=== PATIENT | female | born 1950 | race American Indian/Alaskan Native ===

== ENCOUNTER 2021-11-04 05:00 | Inpatient (IN) | payer MEDICARE ==
--- NOTE | 2021-11-04 05:24 | Emergency Department Report ---
<LAURA LLANESErnie - Last Filed: 11/04/21 05:21> ED Shortness of Breath HPI - General Chief Complaint: Dyspnea/Respdistress Stated Complaint: AMS, CARLEY Time Seen by Provider: 11/04/21 05:20 Source: patient, EMS Mode of arrival: Stretcher Limitations: No Limitations - History of Present Illness Initial Comments: Patient is 71 years old female with history of congestive heart failure and COPD. Patient brought to the emergency room via EMS from home for evaluation of difficulty in breathing that is been going on for 2 days getting worse this morning. EMS reported that patient initial oxygen saturation was 88% on room air improved to 96% on 4 L. Patient also reported chest pain, tightness with no radiation. She reported cough but no fever or chills. MD Complaint: shortness of breath, cough -: days(s) Known History Of: COPD, congestive heart failure ED Review of Systems Comment: All other systems reviewed and negative Constitutional: denies: chills, fever Respiratory: orthopnea, shortness of breath, SOB with exertion, SOB at rest. denies: cough, wheezing Cardiovascular: denies: chest pain, palpitations Musculoskeletal: denies: back pain Neurological: denies: headache, weakness, numbness, paresthesias, confusion ED Past Medical Hx - Social History Smoking Status: Never Smoker Substance Use Type: None ED Physical Exam - General Limitations: No Limitations General appearance: alert, in no apparent distress - Head Head exam: Present: atraumatic, normocephalic, normal inspection - Eye Eye exam: Present: normal appearance - ENT ENT exam: Present: normal exam, normal orophraynx, mucous membranes moist - Neck Neck exam: Present: normal inspection, full ROM. Absent: tenderness, meningismus - Respiratory Respiratory exam: Present: respiratory distress, rales, decreased breath sounds. Absent: wheezes - Cardiovascular Cardiovascular Exam: Present: tachycardia - GI/Abdominal GI/Abdominal exam: Present: soft, normal bowel sounds. Absent: distended, tenderness, guarding, rebound, rigid, mass, bruit, pulsatile mass, hernia - Back Exam Back exam: Absent: CVA tenderness (R), CVA tenderness (L) - Neurological Exam Neurological exam: Present: alert, oriented X3, CN II-XII intact - Psychiatric Psychiatric exam: Present: normal mood - Skin Skin exam: Present: warm, normal color ED Disposition Clinical Impression: SOB (shortness of breath), CHF exacerbation Disposition: ADMITTED INPATIENT Condition: Stable <RAJAN CAMPBELL - Last Filed: 11/04/21 10:41> ED Review of Systems ROS: Stated complaint: AMS, CARLEY Other details as noted in HPI ED Course Vital Signs 11/04/21 11/04/21 11/04/21 05:50 06:01 06:15 Pulse Rate 96 H 124 H 119 H Respiratory 23 40 H 24 Rate Blood Pressure 98/40 112/56 O2 Sat by Pulse 100 100 Oximetry 11/04/21 11/04/21 11/04/21 06:31 06:45 07:01 Pulse Rate 120 H 124 H 112 H Respiratory 37 H 16 38 H Rate Blood Pressure 98/40 105/56 108/56 O2 Sat by Pulse 99 92 95 Oximetry 11/04/21 11/04/21 11/04/21 07:15 07:31 08:01 Pulse Rate 118 H 117 H 116 H Respiratory 33 H 34 H 33 H Rate Blood Pressure 121/66 123/66 122/56 O2 Sat by Pulse 94 93 94 Oximetry 11/04/21 11/04/21 08:15 08:30 Pulse Rate 118 H Respiratory 37 H 18 Rate Blood Pressure 105/65 O2 Sat by Pulse 95 95 Oximetry ED Medical Decision Making - Lab Data Result diagrams: 11/04/21 05:38 11/04/21 05:38 Critical care attestation.: If time is entered above; I have spent that time in minutes in the direct care of this critically ill patient, excluding procedure time. ED Disposition Is pt being admited?: Yes Does the pt Need Aspirin: No
[2021-11-04 05:52] LABS: Hematocrit 37.3 % (30.3-42.9); Hemoglobin 12.3 gm/dl (10.1-14.3); Mean Corpuscular HGB Conc 33 % (30-34); Mean Corpuscular Volume 83 fl (79-97); Platelet Count 234 K/mm3 (140-440); Red Cell Distribution Width 19.1 % (13.2-15.2)
--- NOTE | 2021-11-04 06:02 | XRay Report ---
CHEST 1 VIEW INDICATION / CLINICAL INFORMATION: Dyspnea. COMPARISON: None available. FINDINGS: SUPPORT DEVICES: None. HEART / MEDIASTINUM: Mild cardiomegaly. LUNGS / PLEURA: Bilateral prominence of central vasculature. Interstitial opacities are more prevalen t within the mid and lower chest bilaterally. BONES: No significant osseous abnormality. ADDITIONAL FINDINGS: No significant additional findings. IMPRESSION: 1. Mild decompensation and CHF with vascular congestion and mild pulmonary edema are suggested. Signer Name: Zac Dietrich II, MD Signed: 11/04/2021 5:57 AM Workstation Name: [id number]
[2021-11-04 06:04] LABS: INR 0.97 (0.87-1.13); Partial Thromboplastin Time 26.9 Sec. (24.2-36.6)
[2021-11-04 06:20] LABS: Calcium 9.1 mg/dL (8.4-10.2)
[2021-11-04 06:21] LABS: Alanine Aminotransferase 40 units/L (7-56); Albumin 3.8 g/dL (3.9-5)
[2021-11-04 06:24] LABS: Bilirubin,Direct < 0.2 mg/dL (0-0.2)
[2021-11-04] MEDS ORDERED: FUROSEMIDE 40 MG/4 ML INJ IV ONE (06:29)
[2021-11-04 06:57] LABS: Basophils % (Manual) 0 % (0.0-1.8); Eosinophils % (Manual) 0 % (0.0-4.3); Total Cells Counted 100
[2021-11-04 06:58] LABS: Anisocytosis 1+; Platelet Estimate Consistent w Auto
--- NOTE | 2021-11-04 10:23 | Electrocardiograph Report ---
[facility] Test Date: 2021-11-04 Test Time: 05:24:58 Pat Name: VIKAS HOLCOMB Department: Room: Gender: F Manager Voice: JAMARCUS : 1950 Requested By: LAURA LLANES Order Number: [id number] Reading MD: Jamey Giraldo Measurements Intervals [place] Rate: 129 P: 35 NJ: 132 QRS: 6 QRSD: 76 T: 40 QT: 302 QTc: 445 Interpretive Statements Sinus tachycardia Ventricular premature complex No previous ECG available for comparison Electronically Signed On 11-04-2021 10:23:21 EDT by Jamey Giraldo
[2021-11-04] MEDS ORDERED: ONDANSETRON 4 MG/2 ML INJ IV PRN (11:30)
[2021-11-04] MEDS ORDERED: ACETAMINOPHEN 325 MG TAB PO PRN (11:30)
--- NOTE | 2021-11-04 11:30 | History and Physical Report ---
History of Present Illness History of present illness: 71-year-old female with past medical history of congestive heart failure, COPD on home 3 L presenting to our facility with complaint of chest pain and shortness of breath. She states that symptomology started approximately 2 days ago and has been getting progressively worse. EMS reported initial oxygen saturation of 88% on room air which improved to 96% with 4 L. Patient reported chest pain associated with shortness of breath which she describes as a substernal pressure sensation, does not radiate to the jaw, does not radiate to the shoulder. She reports her appetite has been worse as well last few days. She denies any headache, fever, chills, palpitations, abdominal pain, changes in bowel or urinary habits. Remainder of ROS negative except for stated above Of note the patient has no primary care doctor or hairspring i inspector. She recently moved from [facility] and her daughter is her primary palliative care nurse practitioner. She was recently hospitalized at [facility] for similar symptoms. At the time she had elevated troponins which were stable at 0.11 and echo which showed normal ejection fraction. She was worked up for copd vs ILD and treated with antibiotics, steroids, inhalers at the time. Her renal function was stable at the time at 0.8. After discussing with daughter Aminta, patient was apparently found very confused. She has been having poor oral intake over the last past few days and diarrhea as well. Patient daughter state her mother has issues with memory but was very confused when she found her. Her work of breathing was increased and patient complaining of chest pain. She states that her mother had been hospitalized at [facility] back in August and in September. Both times it was for chest pain and shortness of breath symptoms. She also states that her mother's oxygen requirements have been increasing and have been as high as 5 L/min. After discussing the possibility of her mother having pulmonary fibrosis, the daughter stated that she was aware of this diagnosis and stated that they had up on appointment with pulmonology however were unable to make it to the office as getting appointment was difficult. 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 GENERAL: The patient appears normally developed, Vital signs as documented. On 4 L nasal cannula HEAD: No signs of head trauma. EYES: Pupils are equal. Extraocular motions intact. EARS: Hearing grossly intact. MOUTH: Oropharynx is normal. NECK: No adenopathy, no JVD. CHEST: Bilateral rhonchi. CARDIAC: Regular rate and rhythm. S1 and S2, without murmurs, gallops, or rub s. VASCULAR: No Edema. Peripheral pulses normal and equal in all extremities. ABDOMEN: Soft, non tender and non distended. No rebound or guarding, and no masses palpated. Bowel Sounds normal. MUSCULOSKELETAL: Good range of motion of all major joints. Extremities without clubbing, cyanosis or edema. NEUROLOGIC EXAM: Alert and oriented x 3. no focal sensory or strength deficits. PSYCHIATRIC: Mood normal. SKIN: detail exam as documented in skin assessment - Constitutional Vitals: Temp Pulse Resp BP Pulse Ox 118 H 18 105/65 95 11/04/21 08:15 11/04/21 08:30 11/04/21 08:15 11/04/21 08:30 HEART Score - HEART Score Troponin: Troponin T 0.115 ng/mL (0.00-0.029) H* 11/04/21 06:44 Results - Labs CBC & Chem 7: 11/04/21 05:38 11/04/21 05:38 Labs: Laboratory Last Values WBC 8.6 K/mm3 (4.5-11.0) 11/04/21 05:38 RBC 4.50 M/mm3 (3.65-5.03) 11/04/21 05:38 Hgb 12.3 gm/dl (10.1-14.3) 11/04/21 05:38 Hct 37.3 % (30.3-42.9) 11/04/21 05:38 MCV 83 fl (79-97) 11/04/21 05:38 MCH 27 pg (28-32) L 11/04/21 05:38 MCHC 33 % (30-34) 11/04/21 05:38 RDW 19.1 % (13.2-15.2) H 11/04/21 05:38 Plt Count 234 K/mm3 (140-440) 11/04/21 05:38 Add Manual Diff Complete 11/04/21 05:38 Total Counted 100 11/04/21 05:38 Seg Neuts % (Manual) 89.0 % (40.0-70.0) H 11/04/21 05:38 Band Neutrophils % 0 % 11/04/21 05:38 Lymphocytes % (Manual) 8.0 % (13.4-35.0) L 11/04/21 05:38 Reactive Lymphs % (Man) 0 % 11/04/21 05:38 Monocytes % (Manual) 3.0 % (0.0-7.3) 11/04/21 05:38 Eosinophils % (Manual) 0 % (0.0-4.3) 11/04/21 05:38 Basophils % (Manual) 0 % (0.0-1.8) 11/04/21 05:38 Metamyelocytes % 0 % 11/04/21 05:38 Myelocytes % 0 % 11/04/21 05:38 Promyelocytes % 0 % 11/04/21 05:38 Blast Cells % 0 % 11/04/21 05:38 Nucleated RBC % Not Reportable 11/04/21 05:38 Seg Neutrophils # Man 7.7 K/mm3 (1.8-7.7) 11/04/21 05:38 Band Neutrophils # 0.0 K/mm3 11/04/21 05:38 Lymphocytes # (Manual) 0.7 K/mm3 (1.2-5.4) L 11/04/21 05:38 Abs React Lymphs (Man) 0.0 K/mm3 11/04/21 05:38 Monocytes # (Manual) 0.3 K/mm3 (0.0-0.8) 11/04/21 05:38 Eosinophils # (Manual) 0.0 K/mm3 (0.0-0.4) 11/04/21 05:38 Basophils # (Manual) 0.0 K/mm3 (0.0-0.1) 11/04/21 05:38 Metamyelocytes # 0.0 K/mm3 11/04/21 05:38 Myelocytes # 0.0 K/mm3 11/04/21 05:38 Promyelocytes # 0.0 K/mm3 11/04/21 05:38 Blast Cells # 0.0 K/mm3 11/04/21 05:38 WBC Morphology Not Reportable 11/04/21 05:38 Hypersegmented Neuts Not Reportable 11/04/21 05:38 Hyposegmented Neuts Not Reportable 11/04/21 05:38 Hypogranular Neuts Not Reportable 11/04/21 05:38 Smudge Cells Not Reportable 11/04/21 05:38 Toxic Granulation Not Reportable 11/04/21 05:38 Toxic Vacuolation Not Reportable 11/04/21 05:38 Dohle Bodies Not Reportable 11/04/21 05:38 Pelger-Huet Anomaly Not Reportable 11/04/21 05:38 Kelli Rods Not Reportable 11/04/21 05:38 Platelet Estimate Consistent w auto 11/04/21 05:38 Clumped Platelets Not Reportable 11/04/21 05:38 Plt Clumps, EDTA Not Reportable 11/04/21 05:38 Large Platelets Not Reportable 11/04/21 05:38 Giant Platelets Not Reportable 11/04/21 05:38 Platelet Satelliting Not Reportable 11/04/21 05:38 Plt Morphology Comment Not Reportable 11/04/21 05:38 RBC Morphology Not Reportable 11/04/21 05:38 Dimorphic RBCs Not Reportable 11/04/21 05:38 Polychromasia Not Reportable 11/04/21 05:38 Hypochromasia Not Reportable 11/04/21 05:38 Poikilocytosis Not Reportable 11/04/21 05:38 Anisocytosis 1+ 11/04/21 05:38 Microcytosis Not Reportable 11/04/21 05:38 Macrocytosis Not Reportable 11/04/21 05:38 Spherocytes Not Reportable 11/04/21 05:38 Pappenheimer Bodies Not Reportable 11/04/21 05:38 Sickle Cells Not Reportable 11/04/21 05:38 Target Cells Not Reportable 11/04/21 05:38 Tear Drop Cells Not Reportable 11/04/21 05:38 Ovalocytes Not Reportable 11/04/21 05:38 Helmet Cells Not Reportable 11/04/21 05:38 [place] Bodies Not Reportable 11/04/21 05:38 [place] Rings Not Reportable 11/04/21 05:38 [place] Cells Not Reportable 11/04/21 05:38 Bite Cells Not Reportable 11/04/21 05:38 Crenated Cell Not Reportable 11/04/21 05:38 Elliptocytes Not Reportable 11/04/21 05:38 Acanthocytes (Spur) Not Reportable 11/04/21 05:38 Rouleaux Not Reportable 11/04/21 05:38 Hemoglobin C Crystals Not Reportable 11/04/21 05:38 Schistocytes Not Reportable 11/04/21 05:38 Malaria parasites Not Reportable 11/04/21 05:38 Pedro Bodies Not Reportable 11/04/21 05:38 Hem Pathologist Commnt No 11/04/21 05:38 PT 13.9 Sec. (12.2-14.9) 11/04/21 05:38 INR 0.97 (0.87-1.13) 11/04/21 05:38 APTT 26.9 Sec. (24.2-36.6) 11/04/21 05:38 Sodium 135 mmol/L (137-145) L 11/04/21 05:38 Potassium 4.6 mmol/L (3.6-5.0) 11/04/21 05:38 Chloride 95.7 mmol/L (98-107) L 11/04/21 05:38 Carbon Dioxide 21 mmol/L (22-30) L 11/04/21 05:38 Anion Gap 23 mmol/L 11/04/21 05:38 BUN 18 mg/dL (7-17) H 11/04/21 05:38 Creatinine 1.7 mg/dL (0.6-1.2) H 11/04/21 05:38 Estimated GFR 29 ml/min 11/04/21 05:38 BUN/Creatinine Ratio 11 % 11/04/21 05:38 Glucose 182 mg/dL (65-100) H 11/04/21 05:38 Lactic Acid 1.70 mmol/L (0.7-2.0) 11/04/21 06:44 Calcium 9.1 mg/dL (8.4-10.2) 11/04/21 05:38 Total Bilirubin 0.60 mg/dL (0.1-1.2) 11/04/21 05:38 Direct Bilirubin < 0.2 mg/dL (0-0.2) 11/04/21 05:38 Indirect Bilirubin 0.4 mg/dL 11/04/21 05:38 AST 104 units/L (5-40) H 11/04/21 05:38 ALT 40 units/L (7-56) 11/04/21 05:38 Alkaline Phosphatase 70 units/L (35-129) 11/04/21 05:38 Troponin T 0.115 ng/mL (0.00-0.029) H* 11/04/21 06:44 NT-Pro-B Natriuret Pep 339.8 pg/mL (0-900) 11/04/21 06:44 Total Protein 7.3 g/dL (6.3-8.2) 11/04/21 05:38 Albumin 3.8 g/dL (3.9-5) L 11/04/21 05:38 Albumin/Globulin Ratio 1.1 % 11/04/21 05:38 Triglycerides 102 mg/dL (2-149) 11/04/21 05:38 Cholesterol 220 mg/dL (50-199) H 11/04/21 05:38 LDL Cholesterol Direct 144 mg/dL (50-130) H 11/04/21 05:38 HDL Cholesterol 55 mg/dL (40-59) 11/04/21 05:38 Cholesterol/HDL Ratio 4.00 % 11/04/21 05:38 Assessment and Plan Assessment and plan: #Acute hypoxic respiratory -88% on room air per EMS, 94% on 4L /min . -utilizes as much as 5l/min at home O2 per daughter - duoneb/budesonide ordered - doubt this is cardiac/heart failure related. BNP non elevated. Troponin appears chronically elevated. Symptoms likely driven by ILD. -CXR seems to suggest pulmonary edema from CHF -CT chest: appears to be fibrosis, will await radiology read. - normal EF per old read in September of this year at [facility], echo ordered cancelled - cardiology consulted on admission due to concern for heart failure and troponin elevation, d/w cardiology FREQUENCY CHECKER, will follow recs - pulmonary medicine consulted, d/w Dr Ramirez. #Pulmonary fibrosis - supplemental oxygen 4l/min - CT chest seems to indicate fibrosis, will await radiology recs/pulmonary impressoin - D/w Dr. Ramirez Pulmonology. - duonebs/budesonide -unclear if there is a role for steroids here. #Troponin elevation - EKG on admission shows sinus tachycardia, ordered repeat study - 0.11, repeat troponin ordered - 0.11 at [facility] in September per cardiology -cardiology consulted #Acute kidney injury due to vasomotor nephropathy - Cr: 1.7, reported 0.8 at [facility] - has had a history of kidney problems in her distant past per daughter, was on multilpe pain medications due to hx of rickets - will continue to trend on bmp. - gentle iv hydration ordered, 500 cc @75 x 1 bag. #history of COPD - on 3L/min qhs per patient - duonebs/budesonide as above #Hyperlipidemia -resume home atorvastatin #history of roberta #Nicotine abuse - significant 40 pack year history in her past. #Vascular dementia - memory issues reported by daughter #Morbid Obesity - BMI 37.6 - Counseled patient on the importance of weight loss, incorporating exercise, and dietary changes (lean meats, fresh fruits and vegetables, and water intake). Patient expresses understanding. - Time: +15 min #Advance care planning Disease education conducted, care plan discussed, diagnoses discussed, prognosis discussed, patient is full code, patient acknowledges understanding and agree with care plan, +30 minutes.
--- NOTE | 2021-11-04 12:57 | Consultation ---
History of Present Illness Consult date: 11/04/21 Requesting physician: NAVEEN MÁRQUEZ Consult reason: congestive heart failure, elevated troponin History of present illness: Patient is 71-year-old female with a past medical history of COPD versus ILD, diabetes, and hyperlipidemia who presented to the ED today after being on the bathroom floor this morning by her daughter. Patient states that all she remembers is going to the bathroom and then being woken up by her daughter. Patient brought to the ED by EMS. Per documentation EMS found patient with O2 sat of 88% on room air. At time of interview patient reports complaint of shortness of breath that has been going on for about a week but has worsened in the last 2 days. She reports orthopnea, dyspnea on exertion, dizziness, a dry cough, and a sharp chest pain associated with coughing. At the time of interview patient currently denies any chest pain. In the ED patient was found to have lactic acid of 2.2, negative BNP, troponins stable at 0.11, creatinine of 1.7, and CXR showed vascular congestion and mild pulmonary edema. Of note patient has been admitted to [place] several times in the last few months with complaints of shortness of breath. Patient was recently discharged at the end of September for similar complaints. At time of interview patient denies chest pain, diaphoresis, palpitations, or bilateral lower extremity edema. Patient is previously unknown to our practice. Cardiology is consulted for CHF and elevated troponin Past History Past Medical History: COPD, diabetes, hyperlipidemia Past Surgical History: Other (Knee and hip surgery) Social history: smoking (Former smoker) Family history: no significant family history Medications and Allergies Allergies Allergy/AdvReac Type Severity Reaction Status Date / Time Penicillins Allergy Unknown Verified 11/04/21 05:23 Active Meds: Active Medications Acetaminophen (Acetaminophen 325 Mg Tab) 650 mg PO Q4H PRN PRN Reason: Pain MILD(1-3)/Fever >100.5/WONG Furosemide (Furosemide 40 Mg/4 Ml Inj) 40 mg IV 0600,1800 LEISA Heparin Sodium (Porcine) (Heparin 5,000 Unit/1 Ml Vial) 5,000 unit SUB-Q Q12HR LEISA Ondansetron HCl (Ondansetron 4 Mg/2 Ml Inj) 4 mg IV Q8H PRN PRN Reason: Nausea And Vomiting Oxycodone/Acetaminophen (Oxycodone /Acetaminophen 5-325mg Tab) 1 tab PO Q6H PRN PRN Reason: Pain, Moderate (4-6) Sodium Chloride (Sodium Chloride 0.9% 10 Ml Flush Syringe) 10 ml IV BID LEISA Sodium Chloride (Sodium Chloride 0.9% 10 Ml Flush Syringe) 10 ml IV PRN PRN PRN Reason: LINE FLUSH Review of Systems Constitutional: no weight loss, no weight gain Ears, nose, mouth and throat: no sinus pressure, no sinus pain Cardiovascular: orthopnea, syncope, shortness of breath, dyspnea on exertion, no chest pain, no palpitations Respiratory: cough, shortness of breath, dyspnea on exertion, pain on ins piration Gastrointestinal: nausea, no abdominal pain, no vomiting Musculoskeletal: no neck stiffness, no neck pain Integumentary: no rash, no pruritis, no redness Neurological: no head injury, no transient paralysis Psychiatric: no anxiety, no memory loss Endocrine: no cold intolerance, no heat intolerance Hematologic/Lymphatic: no easy bruising, no easy bleeding Physical Examination Vital Signs Pulse Resp 96 H 23 11/04/21 05:50 11/04/21 05:50 General appearance: no acute distress HEENT: Positive: PERRL Neck: Positive: trachea midline Cardiac: Positive: Regular Rhythm, Tachycardia Lungs: Positive: Decreased Breath Sounds Neuro: Positive: Grossly Intact Abdomen: Positive: Soft Skin: Negative: Rash, Suspicious Lesions, Ulceration Extremities: Present: upper extr. pulses, edema Results 11/04/21 05:38 11/04/21 05:38 Cardiac Enzymes 11/04/21 Range/Units 05:38 AST 104 H (5-40) units/L Coagulation 11/04/21 Range/Units 05:38 PT 13.9 (12.2-14.9) Sec. INR 0.97 (0.87-1.13) APTT 26.9 (24.2-36.6) Sec. Lipids 11/04/21 Range/Units 05:38 Triglycerides 102 (2-149) mg/dL Cholesterol 220 H (50-199) mg/dL HDL Cholesterol 55 (40-59) mg/dL Cholesterol/HDL Ratio 4.00 % CBC 11/04/21 Range/Units 05:38 WBC 8.6 (4.5-11.0) K/mm3 RBC 4.50 (3.65-5.03) M/mm3 Hgb 12.3 (10.1-14.3) gm/dl Hct 37.3 (30.3-42.9) % Plt Count 234 (140-440) K/mm3 Comprehensive Metabolic Panel 11/04/21 11/04/21 Range/Units 05:38 05:38 Sodium 135 L (137-145) mmol/L Potassium 4.6 (3.6-5.0) mmol/L Chloride 95.7 L (98-107) mmol/L Carbon Dioxide 21 L (22-30) mmol/L BUN 18 H (7-17) mg/dL Creatinine 1.7 H (0.6-1.2) mg/dL Glucose 182 H (65-100) mg/dL Calcium 9.1 (8.4-10.2) mg/dL Direct Bilirubin < 0.2 (0-0.2) mg/dL Indirect Bilirubin 0.4 mg/dL AST 104 H (5-40) units/L ALT 40 (7-56) units/L Alkaline Phosphatase 70 (35-129) units/L Total Protein 7.3 (6.3-8.2) g/dL Albumin 3.8 L (3.9-5) g/dL - Imaging and Cardiology Echo: report reviewed EKG interpretations - Telemetry EKG Rhythm: Sinus Tachycardia - EKG Sinus rhythms and dysrhythmias: sinus tachycardia Assessment and Plan Patient is 71-year-old female with a past medical history of COPD versus ILD, diabetes, and hyperlipidemia who presented to the ED today after being on the bathroom floor by her daughter the day of admission. Patient also reports shortness of breath Acute on chronic respiratory failure NSTEMI suspect type II COPD versus ILD JACOBY Diabetes Hyperlipidemia Echo 09/04/2021-LV cavity size and wall thickness are normal. LV systolic function is normal with an estimated LVEF 50-55%. No regional wall motion abnormalities. RV cavity size is normal. RV systolic function appears mild- moderately reduced (best seen in SAX views). Normal biatrial size. Moderate tricuspid regurgitation. There is at least moderate pulmonary hypertension (PASP in 50s). No pericardial effusion. Normal aortic root size. Plan: EKG shows sinus tach 129 with no acute ischemic changes. Troponin noted to be elevated and stable at 0.11 x2 sets. Patient currently denies any chest pain. Continue to trend cardiac enzyme Upon review of records at [place] patient had similar troponins of 0.1 Suspect NSTEMI type II in setting of JACOBY and acute on chronic hypoxic respir atory failure BNP negative however CXR shows pulmonary edema and vascular congestion. Agree with IV Lasix for diuresis with close monitoring of renal function strict I&O's and repeat BMP in the a.m. Due to sinus tach primary team may wish to rule out PE Due to acute on chronic respiratory failure may wish to consider pulmonology consult Initiate atorvastatin 10 mg p.o. nightly Patient not has not had any ischemic eval however due to acute respiratory failure and patient currently denying chest pain will hold ischemic eval at this time No YAZ or ARB due to renal function Will hold beta-blockers due to soft blood pressures Continue to monitor closely Patient seen in conjunction with Dr. Giraldo who agrees with this plan of care
--- NOTE | 2021-11-04 14:20 | Cat Scan Report ---
CT CHEST WITHOUT CONTRAST INDICATION / CLINICAL INFORMATION: pulmonary fibrosis. TECHNIQUE: Axial CT images were obtained through the chest without contrast. All CT scans at this [facility] ation are performed using CT dose reduction for ALARA by means of automated exposure control. COMPARISON: None available. FINDINGS: HEART: No significant abnormality. CORONARY ARTERY CALCIFICATION: Present -- Mild. THORACIC AORTA: Mild atherosclerotic calcification without acute abnormality. MEDIASTINUM / DYLAN: There are a few borderline paratracheal lymph nodes measuring up to 1 cm in short axis. No pathologic adenopathy is appreciated. PLEURA: No pleural effusion. No pneumothorax. LUNGS: There is moderate septal thickening in the periphery of both lungs which is most pronounced at the lung bases. There may be minimal early fibrotic changes in the subpleural regions of both lower lobes. This pattern is suggestive of early idiopathic pulmonary fibrosis. No evidence for acute infil trate or mass. ADDITIONAL FINDINGS: None. UPPER ABDOMEN: Nothing acute. Cholecystectomy. SKELETAL SYSTEM: Moderate discogenic DJD at T1 to. No bony structures are otherwise unremarkable. IMPRESSION: Mild to moderate interstitial lung disease as outlined above. No acute cardiopulmonary process. Signer Name: Aldo Lyman Jr, MD Signed: 11/04/2021 2:16 PM Workstation Name: [id number]
[2021-11-04] MEDS ORDERED: SODIUM CHLORIDE 0.9% 500 ML 500 ML IV SCH (15:00)
[2021-11-04] MEDS: ASPIRIN EC 81 MG TAB PO SCH (15:00)
[2021-11-04] MEDS ORDERED: FUROSEMIDE 40 MG/4 ML INJ IV SCH (18:00)
[2021-11-04] MEDS: IPRATROPIUM/ALBUTEROL SULFATE 3 ML AMPUL.NEB IH SCH ×2 (20:42→20:44)
[2021-11-04] MEDS: BUDESONIDE 0.5 MG/2 ML NEBU IH SCH ×2 (20:43→20:45)
[2021-11-04] MEDS: HEPARIN 5,000 UNIT/1 ML VIAL SUB-Q SCH (23:55)
[2021-11-05 05:22] LABS: Basophils % (Auto) 0.2 % (0.0-1.8); Eosinophils # (Auto) 0.1 K/mm3 (0.0-0.4); Eosinophils % (Auto) 1.2 % (0.0-4.3); Hematocrit 38.1 % (30.3-42.9); Hemoglobin 12.1 gm/dl (10.1-14.3); Lymphocytes % (Auto) 17.9 % (13.4-35.0); Mean Corpuscular HGB Conc 32 % (30-34); Mean Corpuscular Volume 85 fl (79-97); Monocytes # (Auto) 0.5 K/mm3 (0.0-0.8); Monocytes % (Auto) 9.3 % (0.0-7.3); Platelet Count 277 K/mm3 (140-440); Red Cell Distribution Width 19.3 % (13.2-15.2)
[2021-11-05 05:41] LABS: BUN/Creatinine Ratio 19; Blood Urea Nitrogen 19 mg/dL (7-17); Calcium 9.3 mg/dL (8.4-10.2); Hemolysis Index 11
[2021-11-05] MEDS: IPRATROPIUM/ALBUTEROL SULFATE 3 ML AMPUL.NEB IH SCH ×5 (08:19→21:24)
[2021-11-05] MEDS: BUDESONIDE 0.5 MG/2 ML NEBU IH SCH ×2 (08:19→19:50)
[2021-11-05] MEDS: HEPARIN 5,000 UNIT/1 ML VIAL SUB-Q SCH ×2 (10:21→22:37)
[2021-11-05] MEDS: ASPIRIN EC 81 MG TAB PO SCH (10:21)
[2021-11-05] MEDS ORDERED: MORPHINE 4 MG/1 ML INJ IM ONE (11:00)
--- NOTE | 2021-11-05 11:08 | Progress Note ---
Assessment and Plan Patient is 71-year-old female with a past medical history of COPD versus ILD, diabetes, and hyperlipidemia who presented to the ED today after being on the bathroom floor by her daughter the day of admission. Patient also reports shortness of breath Acute on chronic respiratory failure NSTEMI suspect type II COPD versus ILD- pulmonology follwing JACOBY Diabetes Hyperlipidemia Echo 09/04/2021-LV cavity size and wall thickness are normal. LV systolic function is normal with an estimated LVEF 50-55%. No regional wall motion abnormalities. RV cavity size is normal. RV systolic function appears mild- moderately reduced (best seen in SAX views). Normal biatrial size. Moderate tricuspid regurgitation. There is at least moderate pulmonary hypertension (PASP in 50s). No pericardial effusion. Normal aortic root size. Plan: EKG shows sinus tach 129 with no acute ischemic changes. Troponin noted to be elevated and stable at 0.11 x2 sets and downtrending this AM. Patient continues to deny any chest pain. Upon review of records at [place] patient had similar troponins of 0.1 Suspect NSTEMI type II in setting of JACOBY and acute on chronic hypoxic respiratory failure No PE on CT however, per CT report patient may have early Idopathic pulmonary fibrosis. Will defer to pulmonary recommendations Per documentation and discussion with staff hospice consultation is pending due to diagnosis of pulmonary fibrosis Patient not has not had any ischemic eval however due to acute on chronic respiratory failure,patient comorbidities, hospice consult, and patient currently denying chest pain recommend conservative management Continue atorvastatin 10 mg p.o. nightly No YAZ or ARB due to renal function Will hold beta-blockers due to soft blood pressures Will see as needed over the weekend Patient seen in conjunction with Dr. Giraldo who agrees with this plan of care - Patient Problems (1) JACOBY (acute kidney injury) Current Visit: Yes Status: Acute (2) NSTEMI (non-ST elevated myocardial infarction) Current Visit: Yes Status: Acute (3) Diabetes Current Visit: Yes Status: Acute (4) SOB (shortness of breath) Current Visit: Yes Status: Acute Subjective Date of service: 11/05/21 Principal diagnosis: Acute on chronic respiratory failure Interval history: Resting in bed in no acute distress. Reports continue SOB and cough Sinus tach lows 100s on monitor Objective Vital Signs Temp Pulse Pulse Resp Resp BP Pulse Ox 06/17/22 09:28 95 11/05/21 08:19 96 H 16 11/05/21 06:48 97.9 F 107 H 18 114/59 83 L 11/05/21 04:03 98.3 F 104 H 19 94/52 89 11/04/21 23:27 20 97 11/04/21 23:07 105 H 11/04/21 23:00 98.4 F 104 H 18 91/38 96 11/04/21 22:58 98.4 F 99 H 18 105/39 95 11/04/21 22:31 95 H 26 H 114/51 96 11/04/21 22:21 99 H 19 114/51 94 11/04/21 22:11 98 H 22 114/51 93 11/04/21 22:01 99 H 10 L 114/51 91 11/04/21 21:50 100 H 11 L 114/51 92 11/04/21 21:41 106 H 20 108/58 89 11/04/21 21:31 100 H 15 108/58 90 11/04/21 21:21 97 H 28 H 108/58 96 11/04/21 21:11 98 H 15 108/58 96 11/04/21 21:01 97 H 20 108/58 98 11/04/21 20:51 99 H 19 108/58 91 11/04/21 20:50 95 H 16 96 11/04/21 20:41 95 H 20 111/74 95 11/04/21 20:31 100 H 16 111/74 93 11/04/21 20:21 97 H 27 H 111/74 96 11/04/21 20:11 101 H 14 111/74 97 11/04/21 20:01 102 H 18 111/74 94 11/04/21 19:51 103 H 18 111/74 93 11/04/21 19:41 100 H 22 91/47 98 11/04/21 19:31 102 H 18 91/47 96 11/04/21 19:21 102 H 17 91/47 96 11/04/21 19:11 103 H 17 91/47 95 11/04/21 19:01 101 H 14 91/47 95 11/04/21 18:51 14 178/49 93 11/04/21 18:41 15 178/49 97 11/04/21 18:31 11 L 178/49 98 11/04/21 18:27 15 178/49 98 11/04/21 18:15 20 109/32 99 11/04/21 18:01 19 109/32 93 11/04/21 17:45 10 L 117/87 96 11/04/21 17:31 15 117/87 80 L 11/04/21 17:15 118/54 95 11/04/21 17:01 118/54 96 11/04/21 16:45 126/63 94 11/04/21 16:31 126/63 92 11/04/21 16:15 126/63 97 11/04/21 16:01 26 H 126/63 97 11/04/21 15:45 28 H 128/67 97 11/04/21 15:31 25 H 128/67 98 11/04/21 15:15 28 H 114/57 96 11/04/21 15:01 29 H 114/57 96 11/04/21 14:45 119/61 95 11/04/21 14:31 119/61 95 11/04/21 14:15 109/55 98 11/04/21 14:01 109/55 97 11/04/21 13:45 106/64 96 11/04/21 13:33 106/64 93 11/04/21 13:15 105 H 28 H 106/64 97 11/04/21 13:01 106 H 26 H 106/64 98 11/04/21 12:45 106 H 34 H 106/64 96 11/04/21 12:31 105 H 16 106/64 94 11/04/21 12:15 109 H 14 106/64 94 11/04/21 12:01 109 H 12 106/64 94 11/04/21 11:45 108 H 34 H 106/64 95 11/04/21 11:31 108 H 33 H 106/64 96 11/04/21 11:15 108 H 30 H 106/64 97 11/04/21 11:01 106 H 29 H 106/64 95 - Physical Examination General: No Apparent Distress HEENT: Positive: PERRL Neck: Positive: trachea midline Cardiac: Positive: Regular Rhythm, Tachycardia Lungs: Positive: Decreased Breath Sounds Neuro: Positive: Grossly Intact Abdomen: Positive: Soft Skin: Negative: Rash, Suspicious Lesions, Ulceration Extremities: Present: upper extr. pulses, edema - Labs and Meds CBC 11/05/21 Range/Units 04:54 WBC 5.7 (4.5-11.0) K/mm3 RBC 4.50 (3.65-5.03) M/mm3 Hgb 12.1 (10.1-14.3) gm/dl Hct 38.1 (30.3-42.9) % Plt Count 277 (140-440) K/mm3 Lymph # (Auto) 1.0 L (1.2-5.4) K/mm3 Jones # (Auto) 0.5 (0.0-0.8) K/mm3 Eos # (Auto) 0.1 (0.0-0.4) K/mm3 Baso # (Auto) 0.0 (0.0-0.1) K/mm3 Comprehensive Metabolic Panel 11/05/21 Range/Units 04:54 Sodium 137 (137-145) mmol/L Potassium 3.7 (3.6-5.0) mmol/L Chloride 94.5 L (98-107) mmol/L Carbon Dioxide 26 (22-30) mmol/L BUN 19 H (7-17) mg/dL Creatinine 1.0 (0.6-1.2) mg/dL Glucose 135 H (65-100) mg/dL Calcium 9.3 (8.4-10.2) mg/dL - Imaging and Cardiology EKG: report reviewed, image reviewed Echo: report reviewed - Telemetry EKG Rhythm: Sinus Tachycardia - EKG Sinus rhythms and dysrhythmias: sinus tachycardia
[2021-11-05] MEDS ORDERED: MORPHINE 2 MG/1 ML INJ IV SCH (11:10)
--- NOTE | 2021-11-05 11:29 | Electrocardiograph Report ---
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
--- NOTE | 2021-11-05 13:35 | Progress Note ---
Assessment and Plan Assessment and plan: #Acute on chronic hypoxic respiratory failure -88% on room air per EMS, 94% on 4L /min . -utilizes as much as 5l/min at home O2 per daughter - duoneb/budesonide ordered - doubt this is cardiac/heart failure related. BNP non elevated. Troponin appears chronically elevated. Symptoms likely driven by ILD. -CXR seems to suggest pulmonary edema from CHF -CT chest: appears to be fibrosis, will await radiology read. 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 #Pulmonary fibrosis - supplemental oxygen 4l/min - CT chest seems to indicate fibrosis, will await radiology recs/pulmonary impressoin - D/w Dr. Ramirez Pulmonology. - duonebs/budesonide -unclear if there is a role for steroids here. #Troponin elevation - EKG on admission shows sinus tachycardia, ordered repeat study - 0.11, repeat troponin ordered - 0.11 at [facility] in September per cardiology -cardiology consulted #Acute kidney injury due to vasomotor nephropathy- resolved - Cr: 1.7, reported 0.8 at [facility] - has had a history of kidney problems in her distant past per daughter, was on multilpe pain medications due to hx of rickets - will continue to trend on bmp. - gentle iv hydration ordered, 500 cc @75 x 1 bag. #History of COPD - on 3L/min qhs per patient - duonebs/budesonide as above #Hyperlipidemia -resume home atorvastatin #history of roberta #History of nicotine abuse - significant 40 pack year history in her past. #Vascular dementia - memory issues reported by daughter #Morbid Obesity - BMI 37.6 - Counseled patient on the importance of weight loss, incorporating exercise, and dietary changes (lean meats, fresh fruits and vegetables, and water intake). Patient expresses understanding. - Time: +15 min #Advance care planning Disease education conducted, care plan discussed, diagnoses discussed, prognosis discussed, patient is full code, patient acknowledges understanding and agree with care plan, +30 minutes. Disposition Plan: Continue medical management Total Time Spent with Patient (Minutes): 45 min History Interval history: No acute events overnight. Hospitalist Physical - Constitutional Vitals: Temp Pulse Resp BP Pulse Ox 97.9 F 96 H 20 114/59 97 11/05/21 06:48 11/05/21 08:19 11/05/21 11:00 11/05/21 06:48 11/05/21 11:00 General appearance: Present: no acute distress, well-nourished, obese - EENT Eyes: Present: PERRL, EOM intact ENT: hearing intact, clear oral mucosa, dentition normal - Neck Neck: Present: supple, normal ROM - Respiratory Respiratory effort: normal Respiratory: bilateral: diminished (On Venturi mask) - Cardiovascular Rhythm: regular Heart Sounds: Present: S1 & S2 - Extremities Extremities: no ischemia, pulses intact, pulses symmetrical, No edema, normal temperature, normal color Peripheral Pulses: within normal limits - Abdominal General gastrointestinal: soft, non-tender, non-distended, normal bowel sounds - Integumentary Integumentary: Present: clear, warm, dry - Psychiatric Psychiatric: appropriate mood/affect, intact judgment & insight, memory intact, cooperative - Neurologic Neurologic: CNII-XII intact, moves all extremities - Allied Health Allied health notes reviewed: nursing HEART Score - HEART Score Troponin: Troponin T 0.060 ng/mL (0.00-0.029) H D 11/05/21 04:54 Results - Labs CBC & Chem 7: 11/05/21 04:54 11/05/21 04:54 Labs: Laboratory Last Values WBC 5.7 K/mm3 (4.5-11.0) 11/05/21 04:54 RBC 4.50 M/mm3 (3.65-5.03) 11/05/21 04:54 Hgb 12.1 gm/dl (10.1-14.3) 11/05/21 04:54 Hct 38.1 % (30.3-42.9) 11/05/21 04:54 MCV 85 fl (79-97) 11/05/21 04:54 MCH 27 pg (28-32) L 11/05/21 04:54 MCHC 32 % (30-34) 11/05/21 04:54 RDW 19.3 % (13.2-15.2) H 11/05/21 04:54 Plt Count 277 K/mm3 (140-440) 11/05/21 04:54 Lymph % (Auto) 17.9 % (13.4-35.0) 11/05/21 04:54 [place] % (Auto) 9.3 % (0.0-7.3) H 11/05/21 04:54 Eos % (Auto) 1.2 % (0.0-4.3) 11/05/21 04:54 Baso % (Auto) 0.2 % (0.0-1.8) 11/05/21 04:54 Lymph # (Auto) 1.0 K/mm3 (1.2-5.4) L 11/05/21 04:54 [place] # (Auto) 0.5 K/mm3 (0.0-0.8) 11/05/21 04:54 Eos # (Auto) 0.1 K/mm3 (0.0-0.4) 11/05/21 04:54 Baso # (Auto) 0.0 K/mm3 (0.0-0.1) 11/05/21 04:54 Add Manual Diff Complete 11/04/21 05:38 Total Counted 100 11/04/21 05:38 Seg Neutrophils % 71.4 % (40.0-70.0) H 11/05/21 04:54 Seg Neuts % (Manual) 89.0 % (40.0-70.0) H 11/04/21 05:38 Band Neutrophils % 0 % 11/04/21 05:38 Lymphocytes % (Manual) 8.0 % (13.4-35.0) L 11/04/21 05:38 Reactive Lymphs % (Man) 0 % 11/04/21 05:38 Monocytes % (Manual) 3.0 % (0.0-7.3) 11/04/21 05:38 Eosinophils % (Manual) 0 % (0.0-4.3) 11/04/21 05:38 Basophils % (Manual) 0 % (0.0-1.8) 11/04/21 05:38 Metamyelocytes % 0 % 11/04/21 05:38 Myelocytes % 0 % 11/04/21 05:38 Promyelocytes % 0 % 11/04/21 05:38 Blast Cells % 0 % 11/04/21 05:38 Nucleated RBC % Not Reportable 11/04/21 05:38 Seg Neutrophils # 4.1 K/mm3 (1.8-7.7) 11/05/21 04:54 Seg Neutrophils # Man 7.7 K/mm3 (1.8-7.7) 11/04/21 05:38 Band Neutrophils # 0.0 K/mm3 11/04/21 05:38 Lymphocytes # (Manual) 0.7 K/mm3 (1.2-5.4) L 11/04/21 05:38 Abs React Lymphs (Man) 0.0 K/mm3 11/04/21 05:38 Monocytes # (Manual) 0.3 K/mm3 (0.0-0.8) 11/04/21 05:38 Eosinophils # (Manual) 0.0 K/mm3 (0.0-0.4) 11/04/21 05:38 Basophils # (Manual) 0.0 K/mm3 (0.0-0.1) 11/04/21 05:38 Metamyelocytes # 0.0 K/mm3 11/04/21 05:38 Myelocytes # 0.0 K/mm3 11/04/21 05:38 Promyelocytes # 0.0 K/mm3 11/04/21 05:38 Blast Cells # 0.0 K/mm3 11/04/21 05:38 WBC Morphology Not Reportable 11/04/21 05:38 Hypersegmented Neuts Not Reportable 11/04/21 05:38 Hyposegmented Neuts Not Reportable 11/04/21 05:38 Hypogranular Neuts Not Reportable 11/04/21 05:38 Smudge Cells Not Reportable 11/04/21 05:38 Toxic Granulation Not Reportable 11/04/21 05:38 Toxic Vacuolation Not Reportable 11/04/21 05:38 Dohle Bodies Not Reportable 11/04/21 05:38 Pelger-Huet Anomaly Not Reportable 11/04/21 05:38 Kelli Rods Not Reportable 11/04/21 05:38 Platelet Estimate Consistent w auto 11/04/21 05:38 Clumped Platelets Not Reportable 11/04/21 05:38 Plt Clumps, EDTA Not Reportable 11/04/21 05:38 Large Platelets Not Reportable 11/04/21 05:38 Giant Platelets Not Reportable 11/04/21 05:38 Platelet Satelliting Not Reportable 11/04/21 05:38 Plt Morphology Comment Not Reportable 11/04/21 05:38 RBC Morphology Not Reportable 11/04/21 05:38 Dimorphic RBCs Not Reportable 11/04/21 05:38 Polychromasia Not Reportable 11/04/21 05:38 Hypochromasia Not Reportable 11/04/21 05:38 Poikilocytosis Not Reportable 11/04/21 05:38 Anisocytosis 1+ 11/04/21 05:38 Microcytosis Not Reportable 11/04/21 05:38 Macrocytosis Not Reportable 11/04/21 05:38 Spherocytes Not Reportable 11/04/21 05:38 Pappenheimer Bodies Not Reportable 11/04/21 05:38 Sickle Cells Not Reportable 11/04/21 05:38 Target Cells Not Reportable 11/04/21 05:38 Tear Drop Cells Not Reportable 11/04/21 05:38 Ovalocytes Not Reportable 11/04/21 05:38 Helmet Cells Not Reportable 11/04/21 05:38 [place] Bodies Not Reportable 11/04/21 05:38 [place] Rings Not Reportable 11/04/21 05:38 Ariela Cells Not Reportable 11/04/21 05:38 Bite Cells Not Reportable 11/04/21 05:38 Crenated Cell Not Reportable 11/04/21 05:38 Elliptocytes Not Reportable 11/04/21 05:38 Acanthocytes (Spur) Not Reportable 11/04/21 05:38 Rouleaux Not Reportable 11/04/21 05:38 Hemoglobin C Crystals Not Reportable 11/04/21 05:38 Schistocytes Not Reportable 11/04/21 05:38 Malaria parasites Not Reportable 11/04/21 05:38 Pedro Bodies Not Reportable 11/04/21 05:38 Hem Pathologist Commnt No 11/04/21 05:38 PT 13.9 Sec. (12.2-14.9) 11/04/21 05:38 INR 0.97 (0.87-1.13) 11/04/21 05:38 APTT 26.9 Sec. (24.2-36.6) 11/04/21 05:38 D-Dimer 1099.01 ng/mlDDU (0-234) H 11/05/21 04:54 Sodium 137 mmol/L (137-145) 11/05/21 04:54 Potassium 3.7 mmol/L (3.6-5.0) 11/05/21 04:54 Chloride 94.5 mmol/L (98-107) L 11/05/21 04:54 Carbon Dioxide 26 mmol/L (22-30) 11/05/21 04:54 Anion Gap 20 mmol/L 11/05/21 04:54 BUN 19 mg/dL (7-17) H 11/05/21 04:54 Creatinine 1.0 mg/dL (0.6-1.2) 11/05/21 04:54 Estimated GFR > 60 ml/min 11/05/21 04:54 BUN/Creatinine Ratio 19 % 11/05/21 04:54 Glucose 135 mg/dL (65-100) H 11/05/21 04:54 POC Glucose 98 mg/dL (70-105) 11/05/21 11:45 Lactic Acid 1.70 mmol/L (0.7-2.0) 11/04/21 06:44 Calcium 9.3 mg/dL (8.4-10.2) 11/05/21 04:54 Total Bilirubin 0.60 mg/dL (0.1-1.2) 11/04/21 05:38 Direct Bilirubin < 0.2 mg/dL (0-0.2) 11/04/21 05:38 Indirect Bilirubin 0.4 mg/dL 11/04/21 05:38 AST 104 units/L (5-40) H 11/04/21 05:38 ALT 40 units/L (7-56) 11/04/21 05:38 Alkaline Phosphatase 70 units/L (35-129) 11/04/21 05:38 Troponin T 0.060 ng/mL (0.00-0.029) H D 11/05/21 04:54 NT-Pro-B Natriuret Pep 339.8 pg/mL (0-900) 11/04/21 06:44 Total Protein 7.3 g/dL (6.3-8.2) 11/04/21 05:38 Albumin 3.8 g/dL (3.9-5) L 11/04/21 05:38 Albumin/Globulin Ratio 1.1 % 11/04/21 05:38 Triglycerides 102 mg/dL (2-149) 11/04/21 05:38 Cholesterol 220 mg/dL (50-199) H 11/04/21 05:38 LDL Cholesterol Direct 144 mg/dL (50-130) H 11/04/21 05:38 HDL Cholesterol 55 mg/dL (40-59) 11/04/21 05:38 Cholesterol/HDL Ratio 4.00 % 11/04/21 05:38 Active Medications - Current Medications Current Medications: Generic Name Dose Route Start Last Admin Trade Name Freq PRN Reason Stop Dose Admin Acetaminophen 650 mg 11/04/21 11:30 Acetaminophen 325 Mg Tab PO Q4H PRN Pain MILD(1-3)/Fever >100.5/WONG Albuterol/Ipratropium 1 ampul 11/05/21 10:00 11/05/21 10:44 Ipratropium/Albuterol Sulfate 3 Ml Ampul.Neb IH Not Given BID LEISA Aspirin 81 mg 11/04/21 14:00 11/05/21 10:21 Aspirin Ec 81 Mg Tab PO 81 mg QDAY LEISA Administration Atorvastatin Calcium 10 mg 11/04/21 22:00 11/04/21 23:54 Atorvastatin 10 Mg Tab PO 10 mg QHS LEISA Administration Budesonide 0.5 mg 11/04/21 13:45 11/05/21 08:19 Budesonide 0.5 Mg/2 Ml Nebu IH 0.5 mg Q12HRT LEISA Administration Heparin Sodium (Porcine) 5,000 unit 11/04/21 22:00 11/05/21 10:21 Heparin 5,000 Unit/1 Ml Vial SUB-Q 5,000 unit Q12HR LEISA Administration Morphine Sulfate 2 mg 11/05/21 11:10 11/05/21 11:24 Morphine 2 Mg/1 Ml Inj IV 11/05/21 23:00 2 mg ONCE LEISA Administration Ondansetron HCl 4 mg 11/04/21 11:30 Ondansetron 4 Mg/2 Ml Inj IV Q8H PRN Nausea And Vomiting Oxycodone/Acetaminophen 1 tab 11/04/21 11:30 Oxycodone /Acetaminophen 5-325mg Tab PO Q6H PRN Pain, Moderate (4-6) Sodium Chloride 10 ml 11/04/21 22:00 11/05/21 10:22 Sodium Chloride 0.9% 10 Ml Flush Syringe IV 10 ml BID LEISA Administration Sodium Chloride 10 ml 11/04/21 11:30 Sodium Chloride 0.9% 10 Ml Flush Syringe IV PRN PRN LINE FLUSH
--- NOTE | 2021-11-05 14:22 | Consultation ---
Past History Past Medical History: COPD, diabetes, hyperlipidemia Past Surgical History: Other (Knee and hip surgery) Social history: smoking (Former smoker) Family history: no significant family history Medications and Allergies Allergies Allergy/AdvReac Type Severity Reaction Status Date / Time Penicillins Allergy Unknown Verified 11/04/21 05:23 Active Meds: Active Medications Acetaminophen (Acetaminophen 325 Mg Tab) 650 mg PO Q4H PRN PRN Reason: Pain MILD(1-3)/Fever >100.5/WONG Albuterol/Ipratropium (Ipratropium/Albuterol Sulfate 3 Ml Ampul.Neb) 1 ampul IH BID [facility] Last Admin: 11/05/21 10:44 Dose: Not Given Aspirin (Aspirin Ec 81 Mg Tab) 81 mg PO QDAY [facility] Last Admin: 11/05/21 10:21 Dose: 81 mg Atorvastatin Calcium (Atorvastatin 10 Mg Tab) 10 mg PO QHS [facility] Last Admin: 11/04/21 23:54 Dose: 10 mg Budesonide (Budesonide 0.5 Mg/2 Ml Nebu) 0.5 mg IH Q12HRT [facility] Last Admin: 11/05/21 08:19 Dose: 0.5 mg Heparin Sodium (Porcine) (Heparin 5,000 Unit/1 Ml Vial) 5,000 unit SUB-Q Q12HR [facility] Last Admin: 11/05/21 10:21 Dose: 5,000 unit Morphine Sulfate (Morphine 2 Mg/1 Ml Inj) 2 mg IV ONCE [facility] Stop: 11/05/21 23:00 Last Admin: 11/05/21 11:24 Dose: 2 mg Ondansetron HCl (Ondansetron 4 Mg/2 Ml Inj) 4 mg IV Q8H PRN PRN Reason: Nausea And Vomiting Oxycodone/Acetaminophen (Oxycodone /Acetaminophen 5-325mg Tab) 1 tab PO Q6H PRN PRN Reason: Pain, Moderate (4-6) Sodium Chloride (Sodium Chloride 0.9% 10 Ml Flush Syringe) 10 ml IV BID [facility] Last Admin: 11/05/21 10:22 Dose: 10 ml Sodium Chloride (Sodium Chloride 0.9% 10 Ml Flush Syringe) 10 ml IV PRN PRN PRN Reason: LINE FLUSH Physical Examination Vital signs: Vital Signs Pulse Resp 96 H 23 11/04/21 05:50 11/04/21 05:50 Results - Laboratory Findings CBC and BMP: 11/05/21 04:54 11/05/21 04:54 PT/INR, D-dimer PT 13.9 Sec. (12.2-14.9) 11/04/21 05:38 INR 0.97 (0.87-1.13) 11/04/21 05:38 D-Dimer 1099.01 ng/mlDDU (0-234) H 11/05/21 04:54 Abnormal lab findings: Abnormal Labs 11/04/21 11/04/21 11/04/21 05:38 05:38 05:38 MCH 27 L RDW 19.1 H Drew % (Auto) Lymph # (Auto) Seg Neutrophils % Seg Neuts % (Manual) 89.0 H Lymphocytes % (Manual) 8.0 L Lymphocytes # (Manual) 0.7 L D-Dimer Sodium 135 L Chloride 95.7 L Carbon Dioxide 21 L BUN 18 H Creatinine 1.7 H Glucose 182 H Lactic Acid 2.20 H* AST Troponin T 0.111 H* Albumin Cholesterol 220 H LDL Cholesterol Direct 144 H 11/04/21 11/04/21 11/05/21 05:38 06:44 04:54 MCH 27 L RDW 19.3 H Drew % (Auto) 9.3 H Lymph # (Auto) 1.0 L Seg Neutrophils % 71.4 H Seg Neuts % (Manual) Lymphocytes % (Manual) Lymphocytes # (Manual) D-Dimer Sodium Chloride Carbon Dioxide BUN Creatinine Glucose Lactic Acid AST 104 H Troponin T 0.115 H* Albumin 3.8 L Cholesterol LDL Cholesterol Direct 11/05/21 11/05/21 04:54 04:54 MCH RDW [place] % (Auto) Lymph # (Auto) Seg Neutrophils % Seg Neuts % (Manual) Lymphocytes % (Manual) Lymphocytes # (Manual) D-Dimer 1099.01 H Sodium Chloride 94.5 L Carbon Dioxide BUN 19 H Creatinine Glucose 135 H Lactic Acid AST Troponin T 0.060 H D Albumin Cholesterol LDL Cholesterol Direct Assessment and Plan 71 y/o obese female with abnormal CT scan and hypoxemia. REviewed images from here and from [place]. Does not appear to be typical for IPF. 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 patient had elevated RF but no anti ccp was sent. She has seen [place] [facility] but she cannot tell me anything. At this point will suggest the following: Will start steroids given the picture is not typical for IPF. Will place on Solumedrol 60q6 to see if some benefit is felt Echo done at [place] shows moderate Pulm HTN. Will restart oral lasix therapy Ideally, patient needs a surgical lung biopsy for definitive diagnosis. TBBx would not provide adequate enough tissue. No thoracic surgery at this hospital Patient was on 6 liters at one point at [place] and appears to may have been discharged on this. Will find out more when I speak with the daughter. Guarded Prognosis.
--- NOTE | 2021-11-05 14:46 | Event Note ---
Date: 11/05/21 Placed call to Aminta Hyde, daughter, but she did not answer the phone. Will attempt to speak them tomorrow.
[2021-11-05] MEDS: oxyCODONE /ACETAMINOPHEN 5-325MG TAB PO PRN (16:42)
[2021-11-05] MEDS: methylPREDNISolone Sod Succinate 125 MG/2 ML INJ IV SCH (17:23)
[2021-11-06] MEDS: methylPREDNISolone Sod Succinate 125 MG/2 ML INJ IV SCH ×4 (01:24→16:58)
[2021-11-06] MEDS: BUDESONIDE 0.5 MG/2 ML NEBU IH SCH ×2 (08:57→20:59)
[2021-11-06] MEDS: IPRATROPIUM/ALBUTEROL SULFATE 3 ML AMPUL.NEB IH SCH ×2 (09:00→20:59)
[2021-11-06] MEDS: HEPARIN 5,000 UNIT/1 ML VIAL SUB-Q SCH ×2 (09:12→22:12)
[2021-11-06] MEDS: ASPIRIN EC 81 MG TAB PO SCH (09:12)
[2021-11-06] MEDS: FUROSEMIDE 20 MG TAB PO SCH (09:12)
[2021-11-06] MEDS ORDERED: DEXTROSE 50% IN WATER (25GM) 50 ML SYRINGE IV PRN (09:25)
--- NOTE | 2021-11-06 09:30 | Progress Note ---
Assessment and Plan Assessment and plan: #Acute on chronic hypoxic respiratory failure -88% on room air per EMS, 94% on 4L /min . -utilizes as much as 5l/min at home O2 per daughter - duoneb/budesonide ordered - doubt this is cardiac/heart failure related. BNP non elevated. Troponin appears chronically elevated. Symptoms likely driven by ILD. -CXR seems to suggest pulmonary edema from CHF -CT chest: appears to be fibrosis, will await radiology read. 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 #Pulmonary fibrosis (possible and CAP) - supplemental oxygen 4l/min -CT chest indicating fibrosis with honeycombing pattern. -Pulmonology consulted; appreciate recs. -Continue DuoNebs. Continue IV Solu-Medrol 60 mg every 6 hours and IV Lasix 20 mg daily. #Troponin elevation - EKG on admission shows sinus tachycardia, ordered repeat study - 0.11, repeat troponin ordered -cardiology consulted; appreciate recs. No intervention necessary at this time. #Acute kidney injury due to vasomotor nephropathy- resolved - Cr: 1.7, reported 0.8 at [place] - has had a history of kidney problems in her distant past per daughter, was on multilpe pain medications due to hx of rickets - will continue to trend on bmp. - gentle iv hydration ordered, 500 cc @75 x 1 bag. #History of COPD - on 3L/min qhs per patient -Continue duonebs/budesonide as above #Hyperlipidemia -resume home atorvastatin #history of [place] #History of nicotine abuse - significant 40 pack year history in her past. #Vascular dementia - memory issues reported by daughter #Morbid Obesity - BMI 37.6 - Counseled patient on the importance of weight loss, incorporating exercise, and dietary changes (lean meats, fresh fruits and vegetables, and water intake). Patient expresses understanding. - Time: +15 min #Advance care planning Disease education conducted, care plan discussed, diagnoses discussed, prognosis discussed, patient is full code, patient acknowledges understanding and agree with care plan, +30 minutes. Disposition Plan: Continue medical management Total Time Spent with Patient (Minutes): 45 minutes History Interval history: No acute events overnight. Hospitalist Physical - Constitutional Vitals: Temp Pulse Resp BP Pulse Ox 98.3 F 87 16 112/61 96 11/06/21 08:18 11/06/21 08:57 11/06/21 08:57 11/06/21 08:35 11/06/21 09:00 General appearance: Present: no acute distress, well-nourished, obese - EENT Eyes: Present: PERRL, EOM intact ENT: hearing intact, clear oral mucosa, dentition normal - Neck Neck: Present: supple, normal ROM - Respiratory Respiratory effort: labored Respiratory: bilateral: diminished (On 4 L nasal cannula) - Cardiovascular Rhythm: regular Heart Sounds: Present: S1 & S2 - Extremities Extremities: no ischemia, pulses intact, pulses symmetrical, No edema, normal temperature, normal color Peripheral Pulses: within normal limits - Abdominal General gastrointestinal: soft, non-tender, non-distended, normal bowel sounds - Integumentary Integumentary: Present: clear, warm, dry - Psychiatric Psychiatric: appropriate mood/affect, cooperative - Neurologic Neurologic: CNII-XII intact, moves all extremities - Allied Health Allied health notes reviewed: nursing HEART Score - HEART Score Troponin: Troponin T 0.060 ng/mL (0.00-0.029) H D 11/05/21 04:54 Results - Labs CBC & Chem 7: 11/05/21 04:54 11/05/21 04:54 Labs: Laboratory Last Values WBC 5.7 K/mm3 (4.5-11.0) 11/05/21 04:54 RBC 4.50 M/mm3 (3.65-5.03) 11/05/21 04:54 Hgb 12.1 gm/dl (10.1-14.3) 11/05/21 04:54 Hct 38.1 % (30.3-42.9) 11/05/21 04:54 MCV 85 fl (79-97) 11/05/21 04:54 MCH 27 pg (28-32) L 11/05/21 04:54 MCHC 32 % (30-34) 11/05/21 04:54 RDW 19.3 % (13.2-15.2) H 11/05/21 04:54 Plt Count 277 K/mm3 (140-440) 11/05/21 04:54 Lymph % (Auto) 17.9 % (13.4-35.0) 11/05/21 04:54 [place] % (Auto) 9.3 % (0.0-7.3) H 11/05/21 04:54 Eos % (Auto) 1.2 % (0.0-4.3) 11/05/21 04:54 Baso % (Auto) 0.2 % (0.0-1.8) 11/05/21 04:54 Lymph # (Auto) 1.0 K/mm3 (1.2-5.4) L 11/05/21 04:54 [place] # (Auto) 0.5 K/mm3 (0.0-0.8) 11/05/21 04:54 Eos # (Auto) 0.1 K/mm3 (0.0-0.4) 11/05/21 04:54 Baso # (Auto) 0.0 K/mm3 (0.0-0.1) 11/05/21 04:54 Add Manual Diff Complete 11/04/21 05:38 Total Counted 100 11/04/21 05:38 Seg Neutrophils % 71.4 % (40.0-70.0) H 11/05/21 04:54 Seg Neuts % (Manual) 89.0 % (40.0-70.0) H 11/04/21 05:38 Band Neutrophils % 0 % 11/04/21 05:38 Lymphocytes % (Manual) 8.0 % (13.4-35.0) L 11/04/21 05:38 Reactive Lymphs % (Man) 0 % 11/04/21 05:38 Monocytes % (Manual) 3.0 % (0.0-7.3) 11/04/21 05:38 Eosinophils % (Manual) 0 % (0.0-4.3) 11/04/21 05:38 Basophils % (Manual) 0 % (0.0-1.8) 11/04/21 05:38 Metamyelocytes % 0 % 11/04/21 05:38 Myelocytes % 0 % 11/04/21 05:38 Promyelocytes % 0 % 11/04/21 05:38 Blast Cells % 0 % 11/04/21 05:38 Nucleated RBC % Not Reportable 11/04/21 05:38 Seg Neutrophils # 4.1 K/mm3 (1.8-7.7) 11/05/21 04:54 Seg Neutrophils # Man 7.7 K/mm3 (1.8-7.7) 11/04/21 05:38 Band Neutrophils # 0.0 K/mm3 11/04/21 05:38 Lymphocytes # (Manual) 0.7 K/mm3 (1.2-5.4) L 11/04/21 05:38 Abs React Lymphs (Man) 0.0 K/mm3 11/04/21 05:38 Monocytes # (Manual) 0.3 K/mm3 (0.0-0.8) 11/04/21 05:38 Eosinophils # (Manual) 0.0 K/mm3 (0.0-0.4) 11/04/21 05:38 Basophils # (Manual) 0.0 K/mm3 (0.0-0.1) 11/04/21 05:38 Metamyelocytes # 0.0 K/mm3 11/04/21 05:38 Myelocytes # 0.0 K/mm3 11/04/21 05:38 Promyelocytes # 0.0 K/mm3 11/04/21 05:38 Blast Cells # 0.0 K/mm3 11/04/21 05:38 WBC Morphology Not Reportable 11/04/21 05:38 Hypersegmented Neuts Not Reportable 11/04/21 05:38 Hyposegmented Neuts Not Reportable 11/04/21 05:38 Hypogranular Neuts Not Reportable 11/04/21 05:38 Smudge Cells Not Reportable 11/04/21 05:38 Toxic Granulation Not Reportable 11/04/21 05:38 Toxic Vacuolation Not Reportable 11/04/21 05:38 Dohle Bodies Not Reportable 11/04/21 05:38 Pelger-Huet Anomaly Not Reportable 11/04/21 05:38 Kelli Rods Not Reportable 11/04/21 05:38 Platelet Estimate Consistent w auto 11/04/21 05:38 Clumped Platelets Not Reportable 11/04/21 05:38 Plt Clumps, EDTA Not Reportable 11/04/21 05:38 Large Platelets Not Reportable 11/04/21 05:38 Giant Platelets Not Reportable 11/04/21 05:38 Platelet Satelliting Not Reportable 11/04/21 05:38 Plt Morphology Comment Not Reportable 11/04/21 05:38 RBC Morphology Not Reportable 11/04/21 05:38 Dimorphic RBCs Not Reportable 11/04/21 05:38 Polychromasia Not Reportable 11/04/21 05:38 Hypochromasia Not Reportable 11/04/21 05:38 Poikilocytosis Not Reportable 11/04/21 05:38 Anisocytosis 1+ 11/04/21 05:38 Microcytosis Not Reportable 11/04/21 05:38 Macrocytosis Not Reportable 11/04/21 05:38 Spherocytes Not Reportable 11/04/21 05:38 Pappenheimer Bodies Not Reportable 11/04/21 05:38 Sickle Cells Not Reportable 11/04/21 05:38 Target Cells Not Reportable 11/04/21 05:38 Tear Drop Cells Not Reportable 11/04/21 05:38 Ovalocytes Not Reportable 11/04/21 05:38 Helmet Cells Not Reportable 11/04/21 05:38 [place] Bodies Not Reportable 11/04/21 05:38 [place] Rings Not Reportable 11/04/21 05:38 Ariela Cells Not Reportable 11/04/21 05:38 Bite Cells Not Reportable 11/04/21 05:38 Crenated Cell Not Reportable 11/04/21 05:38 Elliptocytes Not Reportable 11/04/21 05:38 Acanthocytes (Spur) Not Reportable 11/04/21 05:38 Rouleaux Not Reportable 11/04/21 05:38 Hemoglobin C Crystals Not Reportable 11/04/21 05:38 Schistocytes Not Reportable 11/04/21 05:38 Malaria parasites Not Reportable 11/04/21 05:38 Pedro Bodies Not Reportable 11/04/21 05:38 Hem Pathologist Commnt No 11/04/21 05:38 PT 13.9 Sec. (12.2-14.9) 11/04/21 05:38 INR 0.97 (0.87-1.13) 11/04/21 05:38 APTT 26.9 Sec. (24.2-36.6) 11/04/21 05:38 D-Dimer 1099.01 ng/mlDDU (0-234) H 11/05/21 04:54 Sodium 137 mmol/L (137-145) 11/05/21 04:54 Potassium 3.7 mmol/L (3.6-5.0) 11/05/21 04:54 Chloride 94.5 mmol/L (98-107) L 11/05/21 04:54 Carbon Dioxide 26 mmol/L (22-30) 11/05/21 04:54 Anion Gap 20 mmol/L 11/05/21 04:54 BUN 19 mg/dL (7-17) H 11/05/21 04:54 Creatinine 1.0 mg/dL (0.6-1.2) 11/05/21 04:54 Estimated GFR > 60 ml/min 11/05/21 04:54 BUN/Creatinine Ratio 19 % 11/05/21 04:54 Glucose 135 mg/dL (65-100) H 11/05/21 04:54 POC Glucose 241 mg/dL (70-105) H 11/06/21 05:05 Lactic Acid 1.70 mmol/L (0.7-2.0) 11/04/21 06:44 Calcium 9.3 mg/dL (8.4-10.2) 11/05/21 04:54 Total Bilirubin 0.60 mg/dL (0.1-1.2) 11/04/21 05:38 Direct Bilirubin < 0.2 mg/dL (0-0.2) 11/04/21 05:38 Indirect Bilirubin 0.4 mg/dL 11/04/21 05:38 AST 104 units/L (5-40) H 11/04/21 05:38 ALT 40 units/L (7-56) 11/04/21 05:38 Alkaline Phosphatase 70 units/L (35-129) 11/04/21 05:38 Troponin T 0.060 ng/mL (0.00-0.029) H D 11/05/21 04:54 NT-Pro-B Natriuret Pep 339.8 pg/mL (0-900) 11/04/21 06:44 Total Protein 7.3 g/dL (6.3-8.2) 11/04/21 05:38 Albumin 3.8 g/dL (3.9-5) L 11/04/21 05:38 Albumin/Globulin Ratio 1.1 % 11/04/21 05:38 Triglycerides 102 mg/dL (2-149) 11/04/21 05:38 Cholesterol 220 mg/dL (50-199) H 11/04/21 05:38 LDL Cholesterol Direct 144 mg/dL (50-130) H 11/04/21 05:38 HDL Cholesterol 55 mg/dL (40-59) 11/04/21 05:38 Cholesterol/HDL Ratio 4.00 % 11/04/21 05:38 [place]/IV: Voiding Method Urinal Active Medications - Current Medications Current Medications: Generic Name Dose Route Start Last Admin Trade Name Freq PRN Reason Stop Dose Admin Acetaminophen 650 mg 11/04/21 11:30 Acetaminophen 325 Mg Tab PO Q4H PRN Pain MILD(1-3)/Fever >100.5/WONG Albuterol/Ipratropium 1 ampul 11/05/21 10:00 11/06/21 09:00 Ipratropium/Albuterol Sulfate 3 Ml Ampul.Neb IH 1 ampul BID LEISA Administration Aspirin 81 mg 11/04/21 14:00 11/06/21 09:12 Aspirin Ec 81 Mg Tab PO 81 mg QDAY LEISA Administration Atorvastatin Calcium 10 mg 11/04/21 22:00 11/05/21 22:38 Atorvastatin 10 Mg Tab PO 10 mg QHS LEISA Administration Budesonide 0.5 mg 11/04/21 13:45 11/06/21 08:57 Budesonide 0.5 Mg/2 Ml Nebu IH 0.5 mg Q12HRT LEISA Administration Dextrose 50 ml 11/06/21 09:25 Dextrose 50% In Water (25gm) 50 Ml Syringe IV Q30MIN PRN Hypoglycemia Protocol Furosemide 20 mg 11/06/21 10:00 11/06/21 09:12 Furosemide 20 Mg Tab PO 20 mg QDAY LEISA Administration Heparin Sodium (Porcine) 5,000 unit 11/04/21 22:00 11/06/21 09:12 Heparin 5,000 Unit/1 Ml Vial SUB-Q 5,000 unit Q12HR LEISA Administration Insulin Human Isoph/Insulin Regular 8 unit 11/06/21 09:25 Insulin Nph/Regular 70/30 Inj SUB-Q BIDDIAB LEISA Insulin Human Regular 0 units 11/06/21 11:30 Insulin Regular, Human 100 Units/1 Ml SUB-Q AC LEISA Protocol Methylprednisolone Sodium Succinate 60 mg 11/05/21 18:00 11/06/21 06:15 Methylprednisolone Sod Succinate 125 Mg/2 Ml Inj IV 60 mg Q6HR LEISA Administration Ondansetron HCl 4 mg 11/04/21 11:30 Ondansetron 4 Mg/2 Ml Inj IV Q8H PRN Nausea And Vomiting Oxycodone/Acetaminophen 1 tab 11/04/21 11:30 11/05/21 16:42 Oxycodone /Acetaminophen 5-325mg Tab PO 1 tab Q6H PRN Administration Pain, Moderate (4-6) Sodium Chloride 10 ml 11/04/21 22:00 11/06/21 09:12 Sodium Chloride 0.9% 10 Ml Flush Syringe IV 10 ml BID LEISA Administration Sodium Chloride 10 ml 11/04/21 11:30 Sodium Chloride 0.9% 10 Ml Flush Syringe IV PRN PRN LINE FLUSH Nutrition/Malnutrition Assess - Dietary Evaluation Nutrition/Malnutrition Findings: Nutrition Notes Start: 11/05/21 14:38 Freq: Status: Active Protocol: Document 11/05/21 14:38 SHALOM (Rec: 11/05/21 15:02 SHALOM [id number]) Nutrition Notes 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 Current Diet Cardiac Diet (since L 11/04). Labs/Tests 11/05: Cl 94.5, BUN 19, Glu 135. Pertinent Medications 11/05: Nutritionally unremarkable. 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 Weight Status Obese Subjective/Other Information RD consult for new onset diabetes assessment. No reports available on Pt's PO intake of meals at the time , will assess at F/U. Pt is on Nasal Cannula, O2 saturation @ 97%, according to Physical Assessment Histroy notes. 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 Pt does not have diabetes diagnosed on the chart. Percent of energy/protein needs met: Prescribed Cardiac Diet provides for energy/protein needs (2,230 Kcal/85 g) during LOS. Burn Absent Trauma Absent GI Symptoms Diarrhea Food Allergy No Skin Integrity/Comment Assessment WNL. 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 Is patient on ventilator? No Is Patient Ambulatory and/or Out of Bed Yes REE-([place]. or-ambulatory/OOB) [ 2114.125 NUTR.[id number]] Kcal/Kg value to use for calculation 16 Approximate Energy Requirements Using 1742 kcal/Kg Calculation Used for Recommendations Kcal/kg Additional Notes Protein: 1-1.2 g/Kg AdjBW; 85- 102 g/day. Fluids: 1 ml/Kcal, or as per MD. Nutrition Intervention Change Diet Order: Continue Cardiac Diet. Follow-Up By: 11/12/21 Additional Comments Continue monitoring food tolerance, %PO intake of meals , and BM.
[2021-11-06] MEDS: INSULIN NPH/REGULAR 70/30 INJ SUB-Q SCH ×2 (10:22→17:02)
[2021-11-06] MEDS: INSULIN REGULAR, HUMAN 100 UNITS/1 ML SUB-Q SCH ×2 (11:50→16:58)
--- NOTE | 2021-11-06 13:20 | Progress Note ---
Assessment and Plan 71 y/o obese female with abnormal CT scan and hypoxemia. 11/06/21: Continue current care with IV steroids. REviewed images from here and from [facility] [facility]. Does not appear to be typical for IPF. 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 patient had elevated RF but no anti ccp was sent. She has seen [facility] [facility] pulm but she cannot tell me anything. At this point will suggest the following: Will start steroids given the picture is not typical for IPF. Will place on Solumedrol 60q6 to see if some benefit is felt Echo done at [facility] [facility] shows moderate Pulm HTN. Will restart oral lasix therapy Ideally, patient needs a surgical lung biopsy for definitive diagnosis. TBBx would not provide adequate enough tissue. No thoracic surgery at this hospital Patient was on 6 liters at one point at [facility] and appears to may have been discharged on this. Will find out more when I speak with the daughter. Guarded Prognosis. Subjective Date of service: 11/06/21 Principal diagnosis: Acute on chronic respiratory failure Interval history: Still no family at bedside. Oxygen requirement improved with steroids. So did work of breathing Objective Vital Signs - 12hr 11/06/21 11/06/21 11/06/21 04:30 06:35 08:18 Temperature 98.7 F 98.3 F Pulse Rate 85 93 H 85 Pulse Rate [ Anterior Bilateral Throughout] Respiratory 17 Rate Respiratory Rate [Anterior Bilateral Throughout] Blood Pressure 189/140 Blood Pressure 105/64 [Left] O2 Sat by Pulse 95 96 Oximetry 11/06/21 11/06/21 11/06/21 08:35 08:57 09:00 Temperature Pulse Rate 90 Pulse Rate [ 87 Anterior Bilateral Throughout] Respiratory Rate Respiratory 16 Rate [Anterior Bilateral Throughout] Blood Pressure 112/61 Blood Pressure [Left] O2 Sat by Pulse 97 96 Oximetry 11/06/21 10:45 Temperature Pulse Rate Pulse Rate [ Anterior Bilateral Throughout] Respiratory 22 Rate Respiratory Rate [Anterior Bilateral Throughout] Blood Pressure Blood Pressure [Left] O2 Sat by Pulse 96 Oximetry CBC and BMP: 11/05/21 04:54 11/05/21 04:54 ABG, PT/INR, D-dimer: PT/INR, D-dimer PT 13.9 Sec. (12.2-14.9) 11/04/21 05:38 INR 0.97 (0.87-1.13) 11/04/21 05:38 D-Dimer 1099.01 ng/mlDDU (0-234) H 11/05/21 04:54 Abnormal lab findings: Abnormal Labs 11/04/21 11/04/21 11/04/21 05:38 05:38 05:38 MCH 27 L RDW 19.1 H [place] % (Auto) Lymph # (Auto) Seg Neutrophils % Seg Neuts % (Manual) 89.0 H Lymphocytes % (Manual) 8.0 L Lymphocytes # (Manual) 0.7 L D-Dimer Sodium 135 L Chloride 95.7 L Carbon Dioxide 21 L BUN 18 H Creatinine 1.7 H Glucose 182 H POC Glucose Hemoglobin A1c Lactic Acid 2.20 H* AST Troponin T 0.111 H* Albumin Cholesterol 220 H LDL Cholesterol Direct 144 H 11/04/21 11/04/21 11/05/21 05:38 06:44 04:54 MCH 27 L RDW 19.3 H [place] % (Auto) 9.3 H Lymph # (Auto) 1.0 L Seg Neutrophils % 71.4 H Seg Neuts % (Manual) Lymphocytes % (Manual) Lymphocytes # (Manual) D-Dimer Sodium Chloride Carbon Dioxide BUN Creatinine Glucose POC Glucose Hemoglobin A1c Lactic Acid AST 104 H Troponin T 0.115 H* Albumin 3.8 L Cholesterol LDL Cholesterol Direct 11/05/21 11/05/21 11/05/21 04:54 04:54 17:35 MCH RDW [place] % (Auto) Lymph # (Auto) Seg Neutrophils % Seg Neuts % (Manual) Lymphocytes % (Manual) Lymphocytes # (Manual) D-Dimer 1099.01 H Sodium Chloride 94.5 L Carbon Dioxide BUN 19 H Creatinine Glucose 135 H POC Glucose 158 H Hemoglobin A1c Lactic Acid AST Troponin T 0.060 H D Albumin Cholesterol LDL Cholesterol Direct 11/05/21 11/06/21 11/06/21 23:37 05:05 11:43 MCH RDW [place] % (Auto) Lymph # (Auto) Seg Neutrophils % Seg Neuts % (Manual) Lymphocytes % (Manual) Lymphocytes # (Manual) D-Dimer Sodium Chloride Carbon Dioxide BUN Creatinine Glucose POC Glucose 175 H 241 H 187 H Hemoglobin A1c Lactic Acid AST Troponin T Albumin Cholesterol LDL Cholesterol Direct 11/06/21 11:50 MCH RDW [place] % (Auto) Lymph # (Auto) Seg Neutrophils % Seg Neuts % (Manual) Lymphocytes % (Manual) Lymphocytes # (Manual) D-Dimer Sodium Chloride Carbon Dioxide BUN Creatinine Glucose POC Glucose Hemoglobin A1c 6.3 H Lactic Acid AST Troponin T Albumin Cholesterol LDL Cholesterol Direct
--- NOTE | 2021-11-06 16:54 | Progress Note ---
Assessment and Plan Assessment and plan: #Acute on chronic hypoxic respiratory failure -88% on room air per EMS, 94% on 4L /min . -utilizes as much as 5l/min at home O2 per daughter - duoneb/budesonide ordered - doubt this is cardiac/heart failure related. BNP non elevated. Troponin appears chronically elevated. Symptoms likely driven by ILD. -CXR seems to suggest pulmonary edema from CHF -CT chest: appears to be fibrosis, will await radiology read. 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 Will continue 1 additional day of IV Solu-Medrol 60 mg every 6 hours. Will be discharged on p.o. Solu-Medrol 60 mg daily indefinitely until the patient follows up with outpatient pulmonology. #Pulmonary fibrosis (possible and CAP) - supplemental oxygen 4l/min -CT chest indicating fibrosis with honeycombing pattern. -Pulmonology consulted; appreciate recs. -Continue DuoNebs. Continue IV Solu-Medrol 60 mg every 6 hours and IV Lasix 20 mg daily. #Troponin elevation - EKG on admission shows sinus tachycardia, ordered repeat study - 0.11, repeat troponin ordered -cardiology consulted; appreciate recs. No intervention necessary at this time. #Acute kidney injury due to vasomotor nephropathy- resolved - Cr: 1.7, reported 0.8 at [facility] - has had a history of kidney problems in her distant past per daughter, was on multilpe pain medications due to hx of rickets - will continue to trend on bmp. - gentle iv hydration ordered, 500 cc @75 x 1 bag. #History of COPD - on 3L/min qhs per patient -Continue duonebs/budesonide as above #Hyperlipidemia -resume home atorvastatin #history of catherine #History of nicotine abuse - significant 40 pack year history in her past. #Vascular dementia - memory issues reported by daughter #Morbid Obesity - BMI 37.6 - Counseled patient on the importance of weight loss, incorporating exercise, and dietary changes (lean meats, fresh fruits and vegetables, and water intake). Patient expresses understanding. - Time: +15 min #Advance care planning Disease education conducted, care plan discussed, diagnoses discussed, prognosis discussed, patient is full code, patient acknowledges understanding and agree with care plan, +30 minutes. #Discharge planning - Patient is pending discharge tomorrow. - Case management has been made aware. Disposition Plan: Continue medical management Total Time Spent with Patient (Minutes): 45 minutes History Interval history: No acute events overnight. Hospitalist Physical - Constitutional Vitals: Temp Pulse Resp BP Pulse Ox 98.3 F 87 22 112/61 96 11/06/21 08:18 11/06/21 08:57 11/06/21 10:45 11/06/21 08:35 11/06/21 10:45 General appearance: Present: no acute distress, well-nourished, obese - EENT Eyes: Present: PERRL, EOM intact ENT: hearing intact, clear oral mucosa, dentition normal - Neck Neck: Present: supple, normal ROM - Respiratory Respiratory effort: normal Respiratory: bilateral: diminished (On 4 L nasal cannula) - Cardiovascular Rhythm: regular Heart Sounds: Present: S1 & S2 - Extremities Extremities: no ischemia, pulses intact, pulses symmetrical, No edema, normal temperature, normal color Peripheral Pulses: within normal limits - Abdominal General gastrointestinal: soft, non-tender, non-distended, normal bowel sounds - Integumentary Integumentary: Present: clear, warm, dry - Psychiatric Psychiatric: appropriate mood/affect, cooperative - Neurologic Neurologic: CNII-XII intact, moves all extremities - Allied Health Allied health notes reviewed: nursing HEART Score - HEART Score Troponin: Troponin T 0.060 ng/mL (0.00-0.029) H D 11/05/21 04:54 Results - Labs CBC & Chem 7: 11/05/21 04:54 11/05/21 04:54 Labs: Laboratory Last Values WBC 5.7 K/mm3 (4.5-11.0) 11/05/21 04:54 RBC 4.50 M/mm3 (3.65-5.03) 11/05/21 04:54 Hgb 12.1 gm/dl (10.1-14.3) 11/05/21 04:54 Hct 38.1 % (30.3-42.9) 11/05/21 04:54 MCV 85 fl (79-97) 11/05/21 04:54 MCH 27 pg (28-32) L 11/05/21 04:54 MCHC 32 % (30-34) 11/05/21 04:54 RDW 19.3 % (13.2-15.2) H 11/05/21 04:54 Plt Count 277 K/mm3 (140-440) 11/05/21 04:54 Lymph % (Auto) 17.9 % (13.4-35.0) 11/05/21 04:54 [place] % (Auto) 9.3 % (0.0-7.3) H 11/05/21 04:54 Eos % (Auto) 1.2 % (0.0-4.3) 11/05/21 04:54 Baso % (Auto) 0.2 % (0.0-1.8) 11/05/21 04:54 Lymph # (Auto) 1.0 K/mm3 (1.2-5.4) L 11/05/21 04:54 [place] # (Auto) 0.5 K/mm3 (0.0-0.8) 11/05/21 04:54 Eos # (Auto) 0.1 K/mm3 (0.0-0.4) 11/05/21 04:54 Baso # (Auto) 0.0 K/mm3 (0.0-0.1) 11/05/21 04:54 Add Manual Diff Complete 11/04/21 05:38 Total Counted 100 11/04/21 05:38 Seg Neutrophils % 71.4 % (40.0-70.0) H 11/05/21 04:54 Seg Neuts % (Manual) 89.0 % (40.0-70.0) H 11/04/21 05:38 Band Neutrophils % 0 % 11/04/21 05:38 Lymphocytes % (Manual) 8.0 % (13.4-35.0) L 11/04/21 05:38 Reactive Lymphs % (Man) 0 % 11/04/21 05:38 Monocytes % (Manual) 3.0 % (0.0-7.3) 11/04/21 05:38 Eosinophils % (Manual) 0 % (0.0-4.3) 11/04/21 05:38 Basophils % (Manual) 0 % (0.0-1.8) 11/04/21 05:38 Metamyelocytes % 0 % 11/04/21 05:38 Myelocytes % 0 % 11/04/21 05:38 Promyelocytes % 0 % 11/04/21 05:38 Blast Cells % 0 % 11/04/21 05:38 Nucleated RBC % Not Reportable 11/04/21 05:38 Seg Neutrophils # 4.1 K/mm3 (1.8-7.7) 11/05/21 04:54 Seg Neutrophils # Man 7.7 K/mm3 (1.8-7.7) 11/04/21 05:38 Band Neutrophils # 0.0 K/mm3 11/04/21 05:38 Lymphocytes # (Manual) 0.7 K/mm3 (1.2-5.4) L 11/04/21 05:38 Abs React Lymphs (Man) 0.0 K/mm3 11/04/21 05:38 Monocytes # (Manual) 0.3 K/mm3 (0.0-0.8) 11/04/21 05:38 Eosinophils # (Manual) 0.0 K/mm3 (0.0-0.4) 11/04/21 05:38 Basophils # (Manual) 0.0 K/mm3 (0.0-0.1) 11/04/21 05:38 Metamyelocytes # 0.0 K/mm3 11/04/21 05:38 Myelocytes # 0.0 K/mm3 11/04/21 05:38 Promyelocytes # 0.0 K/mm3 11/04/21 05:38 Blast Cells # 0.0 K/mm3 11/04/21 05:38 WBC Morphology Not Reportable 11/04/21 05:38 Hypersegmented Neuts Not Reportable 11/04/21 05:38 Hyposegmented Neuts Not Reportable 11/04/21 05:38 Hypogranular Neuts Not Reportable 11/04/21 05:38 Smudge Cells Not Reportable 11/04/21 05:38 Toxic Granulation Not Reportable 11/04/21 05:38 Toxic Vacuolation Not Reportable 11/04/21 05:38 Dohle Bodies Not Reportable 11/04/21 05:38 Pelger-Huet Anomaly Not Reportable 11/04/21 05:38 Kelli Rods Not Reportable 11/04/21 05:38 Platelet Estimate Consistent w auto 11/04/21 05:38 Clumped Platelets Not Reportable 11/04/21 05:38 Plt Clumps, EDTA Not Reportable 11/04/21 05:38 Large Platelets Not Reportable 11/04/21 05:38 Giant Platelets Not Reportable 11/04/21 05:38 Platelet Satelliting Not Reportable 11/04/21 05:38 Plt Morphology Comment Not Reportable 11/04/21 05:38 RBC Morphology Not Reportable 11/04/21 05:38 Dimorphic RBCs Not Reportable 11/04/21 05:38 Polychromasia Not Reportable 11/04/21 05:38 Hypochromasia Not Reportable 11/04/21 05:38 Poikilocytosis Not Reportable 11/04/21 05:38 Anisocytosis 1+ 11/04/21 05:38 Microcytosis Not Reportable 11/04/21 05:38 Macrocytosis Not Reportable 11/04/21 05:38 Spherocytes Not Reportable 11/04/21 05:38 Pappenheimer Bodies Not Reportable 11/04/21 05:38 Sickle Cells Not Reportable 11/04/21 05:38 Target Cells Not Reportable 11/04/21 05:38 Tear Drop Cells Not Reportable 11/04/21 05:38 Ovalocytes Not Reportable 11/04/21 05:38 Helmet Cells Not Reportable 11/04/21 05:38 [place] Bodies Not Reportable 11/04/21 05:38 [place] Rings Not Reportable 11/04/21 05:38 Ariela Cells Not Reportable 11/04/21 05:38 Bite Cells Not Reportable 11/04/21 05:38 Crenated Cell Not Reportable 11/04/21 05:38 Elliptocytes Not Reportable 11/04/21 05:38 Acanthocytes (Spur) Not Reportable 11/04/21 05:38 Rouleaux Not Reportable 11/04/21 05:38 Hemoglobin C Crystals Not Reportable 11/04/21 05:38 Schistocytes Not Reportable 11/04/21 05:38 Malaria parasites Not Reportable 11/04/21 05:38 Pedro Bodies Not Reportable 11/04/21 05:38 Hem Pathologist Commnt No 11/04/21 05:38 PT 13.9 Sec. (12.2-14.9) 11/04/21 05:38 INR 0.97 (0.87-1.13) 11/04/21 05:38 APTT 26.9 Sec. (24.2-36.6) 11/04/21 05:38 D-Dimer 1099.01 ng/mlDDU (0-234) H 11/05/21 04:54 Sodium 137 mmol/L (137-145) 11/05/21 04:54 Potassium 3.7 mmol/L (3.6-5.0) 11/05/21 04:54 Chloride 94.5 mmol/L (98-107) L 11/05/21 04:54 Carbon Dioxide 26 mmol/L (22-30) 11/05/21 04:54 Anion Gap 20 mmol/L 11/05/21 04:54 BUN 19 mg/dL (7-17) H 11/05/21 04:54 Creatinine 1.0 mg/dL (0.6-1.2) 11/05/21 04:54 Estimated GFR > 60 ml/min 11/05/21 04:54 BUN/Creatinine Ratio 19 % 11/05/21 04:54 Glucose 135 mg/dL (65-100) H 11/05/21 04:54 POC Glucose 149 mg/dL (70-105) H 11/06/21 16:44 Hemoglobin A1c 6.3 % (4-6) H 11/06/21 11:50 Lactic Acid 1.70 mmol/L (0.7-2.0) 11/04/21 06:44 Calcium 9.3 mg/dL (8.4-10.2) 11/05/21 04:54 Total Bilirubin 0.60 mg/dL (0.1-1.2) 11/04/21 05:38 Direct Bilirubin < 0.2 mg/dL (0-0.2) 11/04/21 05:38 Indirect Bilirubin 0.4 mg/dL 11/04/21 05:38 AST 104 units/L (5-40) H 11/04/21 05:38 ALT 40 units/L (7-56) 11/04/21 05:38 Alkaline Phosphatase 70 units/L (35-129) 11/04/21 05:38 Troponin T 0.060 ng/mL (0.00-0.029) H D 11/05/21 04:54 NT-Pro-B Natriuret Pep 339.8 pg/mL (0-900) 11/04/21 06:44 Total Protein 7.3 g/dL (6.3-8.2) 11/04/21 05:38 Albumin 3.8 g/dL (3.9-5) L 11/04/21 05:38 Albumin/Globulin Ratio 1.1 % 11/04/21 05:38 Triglycerides 102 mg/dL (2-149) 11/04/21 05:38 Cholesterol 220 mg/dL (50-199) H 11/04/21 05:38 LDL Cholesterol Direct 144 mg/dL (50-130) H 11/04/21 05:38 HDL Cholesterol 55 mg/dL (40-59) 11/04/21 05:38 Cholesterol/HDL Ratio 4.00 % 11/04/21 05:38 [place]/IV: Voiding Method External Female Catheter Active Medications - Current Medications Current Medications: Generic Name Dose Route Start Last Admin Trade Name Freq PRN Reason Stop Dose Admin Acetaminophen 650 mg 11/04/21 11:30 Acetaminophen 325 Mg Tab PO Q4H PRN Pain MILD(1-3)/Fever >100.5/WONG Albuterol/Ipratropium 1 ampul 11/05/21 10:00 11/06/21 09:00 Ipratropium/Albuterol Sulfate 3 Ml Ampul.Neb IH 1 ampul BID LEISA Administration Aspirin 81 mg 11/04/21 14:00 11/06/21 09:12 Aspirin Ec 81 Mg Tab PO 81 mg QDAY LEISA Administration Atorvastatin Calcium 10 mg 11/04/21 22:00 11/05/21 22:38 Atorvastatin 10 Mg Tab PO 10 mg QHS LEISA Administration Budesonide 0.5 mg 11/04/21 13:45 11/06/21 08:57 Budesonide 0.5 Mg/2 Ml Nebu IH 0.5 mg Q12HRT LEISA Administration Dextrose 50 ml 11/06/21 09:25 Dextrose 50% In Water (25gm) 50 Ml Syringe IV Q30MIN PRN Hypoglycemia Protocol Furosemide 20 mg 11/06/21 10:00 11/06/21 09:12 Furosemide 20 Mg Tab PO 20 mg QDAY LEISA Administration Heparin Sodium (Porcine) 5,000 unit 11/04/21 22:00 11/06/21 09:12 Heparin 5,000 Unit/1 Ml Vial SUB-Q 5,000 unit Q12HR LEISA Administration Insulin Human Isoph/Insulin Regular 8 unit 11/06/21 09:25 11/06/21 10:22 Insulin Nph/Regular 70/30 Inj SUB-Q 8 unit BIDDIAB LEISA Administration Insulin Human Regular 0 units 11/06/21 11:30 11/06/21 11:50 Insulin Regular, Human 100 Units/1 Ml SUB-Q 2 units AC LEISA Administration Protocol Methylprednisolone Sodium Succinate 60 mg 11/05/21 18:00 11/06/21 11:55 Methylprednisolone Sod Succinate 125 Mg/2 Ml Inj IV 60 mg Q6HR LEISA Administration Ondansetron HCl 4 mg 11/04/21 11:30 Ondansetron 4 Mg/2 Ml Inj IV Q8H PRN Nausea And Vomiting Oxycodone/Acetaminophen 1 tab 11/04/21 11:30 11/05/21 16:42 Oxycodone /Acetaminophen 5-325mg Tab PO 1 tab Q6H PRN Administration Pain, Moderate (4-6) Sodium Chloride 10 ml 11/04/21 22:00 11/06/21 09:12 Sodium Chloride 0.9% 10 Ml Flush Syringe IV 10 ml BID LEISA Administration Sodium Chloride 10 ml 11/04/21 11:30 Sodium Chloride 0.9% 10 Ml Flush Syringe IV PRN PRN LINE FLUSH Nutrition/Malnutrition Assess - Dietary Evaluation Nutrition/Malnutrition Findings: Nutrition Notes Start: 11/05/21 14:38 Freq: Status: Active Protocol: Document 11/05/21 14:38 SHALOM (Rec: 11/05/21 15:02 SHALOM [id number]) Nutrition Notes 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 Current Diet Cardiac Diet (since L 11/04). Labs/Tests 11/05: Cl 94.5, BUN 19, Glu 135. Pertinent Medications 11/05: Nutritionally unremarkable. 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 Weight Status Obese Subjective/Other Information RD consult for new onset diabetes assessment. No reports available on Pt's PO intake of meals at the time , will assess at F/U. Pt is on Nasal Cannula, O2 saturation @ 97%, according to Physical Assessment Histroy notes. 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 Pt does not have diabetes diagnosed on the chart. Percent of energy/protein needs met: Prescribed Cardiac Diet provides for energy/protein needs (2,230 Kcal/85 g) during LOS. Burn Absent Trauma Absent GI Symptoms Diarrhea Food Allergy No Skin Integrity/Comment Assessment WNL. 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 Is patient on ventilator? No Is Patient Ambulatory and/or Out of Bed Yes REE-(Collier-St. Jeor-ambulatory/OOB) [ 2114.125 NUTR.MSJOOB] Kcal/Kg value to use for calculation 16 Approximate Energy Requirements Using 1742 kcal/Kg Calculation Used for Recommendations Kcal/kg Additional Notes Protein: 1-1.2 g/Kg AdjBW; 85- 102 g/day. Fluids: 1 ml/Kcal, or as per MD. Nutrition Intervention Change Diet Order: Continue Cardiac Diet. Follow-Up By: 11/12/21 Additional Comments Continue monitoring food tolerance, %PO intake of meals , and BM.
[2021-11-06] MEDS: oxyCODONE /ACETAMINOPHEN 5-325MG TAB PO PRN (22:31)
[2021-11-07] MEDS: methylPREDNISolone Sod Succinate 125 MG/2 ML INJ IV SCH ×4 (00:17→17:47)
[2021-11-07] MEDS: guaiFENesin 100 MG/5 ML ORAL LIQD PO PRN (00:17)
[2021-11-07] MEDS: BUDESONIDE 0.5 MG/2 ML NEBU IH SCH ×2 (08:31→21:31)
[2021-11-07] MEDS: IPRATROPIUM/ALBUTEROL SULFATE 3 ML AMPUL.NEB IH SCH ×2 (09:00→21:32)
[2021-11-07] MEDS: HEPARIN 5,000 UNIT/1 ML VIAL SUB-Q SCH ×2 (10:08→22:00)
[2021-11-07] MEDS: FUROSEMIDE 20 MG TAB PO SCH (10:08)
[2021-11-07] MEDS: INSULIN NPH/REGULAR 70/30 INJ SUB-Q SCH ×2 (10:08→17:48)
[2021-11-07] MEDS: ASPIRIN EC 81 MG TAB PO SCH (10:08)
[2021-11-07] MEDS: INSULIN REGULAR, HUMAN 100 UNITS/1 ML SUB-Q SCH ×3 (10:08→17:12)
--- NOTE | 2021-11-07 12:03 | Progress Note ---
Assessment and Plan 71 y/o obese female with abnormal CT scan and hypoxemia. 11/07/21: IMS considering discharge. No objection to this. Will need prolonged high dose steroid care with long taper. Suggest discharge on PRednisone 60 daily indefinitely until she follows back up with [facility] in [place]. She will need PJP prophylaxis therapy as well. Continue supplemental oxygen and daily lasix therapy as long as BP and renal function will allow. 11/06/21: Continue current care with IV steroids. REviewed images from here and from [facility]. Does not appear to be typical for IPF. 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 patient had elevated RF but no anti ccp was sent. She has seen [facility] but she cannot tell me anything. At this point will suggest the following: Will start steroids given the picture is not typical for IPF. Will place on Solumedrol 60q6 to see if some benefit is felt Echo done at [facility] shows moderate Pulm HTN. Will restart oral lasix therapy Ideally, patient needs a surgical lung biopsy for definitive diagnosis. TBBx wo uld not provide adequate enough tissue. No thoracic surgery at this hospital Patient was on 6 liters at one point at [facility] and appears to may have been discharged on this. Will find out more when I speak with the daughter. Guarded Prognosis. Subjective Date of service: 11/07/21 Principal diagnosis: Acute on chronic respiratory failure Interval history: Still no family present. Spoke with IMS attending. Objective Vital Signs - 12hr 11/07/21 11/07/21 11/07/21 00:27 02:25 05:20 Temperature 97.6 F 97.8 F Pulse Rate 88 80 82 Pulse Rate [ Anterior Bilateral Throughout] Respiratory 19 17 Rate Respiratory Rate [Anterior Bilateral Throughout] Blood Pressure 108/59 92/53 [Left] O2 Sat by Pulse 98 98 Oximetry 11/07/21 11/07/21 08:31 08:34 Temperature Pulse Rate Pulse Rate [ 80 Anterior Bilateral Throughout] Respiratory Rate Respiratory 16 Rate [Anterior Bilateral Throughout] Blood Pressure [Left] O2 Sat by Pulse 98 Oximetry CBC and BMP: 11/05/21 04:54 11/05/21 04:54 ABG, PT/INR, D-dimer: PT/INR, D-dimer PT 13.9 Sec. (12.2-14.9) 11/04/21 05:38 INR 0.97 (0.87-1.13) 11/04/21 05:38 D-Dimer 1099.01 ng/mlDDU (0-234) H 11/05/21 04:54 Abnormal lab findings: Abnormal Labs 11/04/21 11/04/21 11/04/21 05:38 05:38 05:38 MCH 27 L RDW 19.1 H [place] % (Auto) Lymph # (Auto) Seg Neutrophils % Seg Neuts % (Manual) 89.0 H Lymphocytes % (Manual) 8.0 L Lymphocytes # (Manual) 0.7 L D-Dimer Sodium 135 L Chloride 95.7 L Carbon Dioxide 21 L BUN 18 H Creatinine 1.7 H Glucose 182 H POC Glucose Hemoglobin A1c Lactic Acid 2.20 H* AST Troponin T 0.111 H* Albumin Cholesterol 220 H LDL Cholesterol Direct 144 H 11/04/21 11/04/21 11/05/21 05:38 06:44 04:54 MCH 27 L RDW 19.3 H [place] % (Auto) 9.3 H Lymph # (Auto) 1.0 L Seg Neutrophils % 71.4 H Seg Neuts % (Manual) Lymphocytes % (Manual) Lymphocytes # (Manual) D-Dimer Sodium Chloride Carbon Dioxide BUN Creatinine Glucose POC Glucose Hemoglobin A1c Lactic Acid AST 104 H Troponin T 0.115 H* Albumin 3.8 L Cholesterol LDL Cholesterol Direct 11/05/21 11/05/21 11/05/21 04:54 04:54 17:35 MCH RDW [place] % (Auto) Lymph # (Auto) Seg Neutrophils % Seg Neuts % (Manual) Lymphocytes % (Manual) Lymphocytes # (Manual) D-Dimer 1099.01 H Sodium Chloride 94.5 L Carbon Dioxide BUN 19 H Creatinine Glucose 135 H POC Glucose 158 H Hemoglobin A1c Lactic Acid AST Troponin T 0.060 H D Albumin Cholesterol LDL Cholesterol Direct 11/05/21 11/06/21 11/06/21 23:37 05:05 11:43 MCH RDW [place] % (Auto) Lymph # (Auto) Seg Neutrophils % Seg Neuts % (Manual) Lymphocytes % (Manual) Lymphocytes # (Manual) D-Dimer Sodium Chloride Carbon Dioxide BUN Creatinine Glucose POC Glucose 175 H 241 H 187 H Hemoglobin A1c Lactic Acid AST Troponin T Albumin Cholesterol LDL Cholesterol Direct 11/06/21 11/06/21 11/06/21 11:50 16:44 21:36 MCH RDW [place] % (Auto) Lymph # (Auto) Seg Neutrophils % Seg Neuts % (Manual) Lymphocytes % (Manual) Lymphocytes # (Manual) D-Dimer Sodium Chloride Carbon Dioxide BUN Creatinine Glucose POC Glucose 149 H 172 H Hemoglobin A1c 6.3 H Lactic Acid AST Troponin T Albumin Cholesterol LDL Cholesterol Direct 11/07/21 11/07/21 05:36 11:45 MCH RDW [place] % (Auto) Lymph # (Auto) Seg Neutrophils % Seg Neuts % (Manual) Lymphocytes % (Manual) Lymphocytes # (Manual) D-Dimer Sodium Chloride Carbon Dioxide BUN Creatinine Glucose POC Glucose 149 H 182 H Hemoglobin A1c Lactic Acid AST Troponin T Albumin Cholesterol LDL Cholesterol Direct
[2021-11-08] MEDS: methylPREDNISolone Sod Succinate 125 MG/2 ML INJ IV SCH ×2 (00:13→06:22)
[2021-11-08] MEDS: guaiFENesin 100 MG/5 ML ORAL LIQD PO PRN (00:39)
--- NOTE | 2021-11-08 01:42 | Progress Note ---
Subjective Date of service: 11/08/21 Principal diagnosis: Acute on chronic respiratory failure Objective Vital Signs - 12hr 11/07/21 11/07/21 11/07/21 15:00 19:45 19:52 Pulse Rate 73 78 78 Pulse Rate [ Anterior Bilateral Throughout] Respiratory Rate Respiratory Rate [Anterior Bilateral Throughout] Blood Pressure [Left] O2 Sat by Pulse Oximetry 11/07/21 11/07/21 11/07/21 19:53 21:32 21:34 Pulse Rate Pulse Rate [ 84 Anterior Bilateral Throughout] Respiratory Rate Respiratory 16 Rate [Anterior Bilateral Throughout] Blood Pressure [Left] O2 Sat by Pulse 96 96 Oximetry 11/07/21 21:54 Pulse Rate 108 H Pulse Rate [ Anterior Bilateral Throughout] Respiratory 19 Rate Respiratory Rate [Anterior Bilateral Throughout] Blood Pressure 102/58 [Left] O2 Sat by Pulse 94 Oximetry CBC and BMP: 11/05/21 04:54 11/05/21 04:54 ABG, PT/INR, D-dimer: PT/INR, D-dimer PT 13.9 Sec. (12.2-14.9) 11/04/21 05:38 INR 0.97 (0.87-1.13) 11/04/21 05:38 D-Dimer 1099.01 ng/mlDDU (0-234) H 11/05/21 04:54 Abnormal lab findings: Abnormal Labs 11/04/21 11/04/21 11/04/21 05:38 05:38 05:38 MCH 27 L RDW 19.1 H [place] % (Auto) Lymph # (Auto) Seg Neutrophils % Seg Neuts % (Manual) 89.0 H Lymphocytes % (Manual) 8.0 L Lymphocytes # (Manual) 0.7 L D-Dimer Sodium 135 L Chloride 95.7 L Carbon Dioxide 21 L BUN 18 H Creatinine 1.7 H Glucose 182 H POC Glucose Hemoglobin A1c Lactic Acid 2.20 H* AST Troponin T 0.111 H* Albumin Cholesterol 220 H LDL Cholesterol Direct 144 H 11/04/21 11/04/21 11/05/21 05:38 06:44 04:54 MCH 27 L RDW 19.3 H [place] % (Auto) 9.3 H Lymph # (Auto) 1.0 L Seg Neutrophils % 71.4 H Seg Neuts % (Manual) Lymphocytes % (Manual) Lymphocytes # (Manual) D-Dimer Sodium Chloride Carbon Dioxide BUN Creatinine Glucose POC Glucose Hemoglobin A1c Lactic Acid AST 104 H Troponin T 0.115 H* Albumin 3.8 L Cholesterol LDL Cholesterol Direct 11/05/21 11/05/21 11/05/21 04:54 04:54 17:35 MCH RDW [place] % (Auto) Lymph # (Auto) Seg Neutrophils % Seg Neuts % (Manual) Lymphocytes % (Manual) Lymphocytes # (Manual) D-Dimer 1099.01 H Sodium Chloride 94.5 L Carbon Dioxide BUN 19 H Creatinine Glucose 135 H POC Glucose 158 H Hemoglobin A1c Lactic Acid AST Troponin T 0.060 H D Albumin Cholesterol LDL Cholesterol Direct 11/05/21 11/06/21 11/06/21 23:37 05:05 11:43 MCH RDW [place] % (Auto) Lymph # (Auto) Seg Neutrophils % Seg Neuts % (Manual) Lymphocytes % (Manual) Lymphocytes # (Manual) D-Dimer Sodium Chloride Carbon Dioxide BUN Creatinine Glucose POC Glucose 175 H 241 H 187 H Hemoglobin A1c Lactic Acid AST Troponin T Albumin Cholesterol LDL Cholesterol Direct 11/06/21 11/06/21 11/06/21 11:50 16:44 21:36 MCH RDW [place] % (Auto) Lymph # (Auto) Seg Neutrophils % Seg Neuts % (Manual) Lymphocytes % (Manual) Lymphocytes # (Manual) D-Dimer Sodium Chloride Carbon Dioxide BUN Creatinine Glucose POC Glucose 149 H 172 H Hemoglobin A1c 6.3 H Lactic Acid AST Troponin T Albumin Cholesterol LDL Cholesterol Direct 11/07/21 11/07/21 11/07/21 05:36 11:45 16:44 MCH RDW [place] % (Auto) Lymph # (Auto) Seg Neutrophils % Seg Neuts % (Manual) Lymphocytes % (Manual) Lymphocytes # (Manual) D-Dimer Sodium Chloride Carbon Dioxide BUN Creatinine Glucose POC Glucose 149 H 182 H 138 H Hemoglobin A1c Lactic Acid AST Troponin T Albumin Cholesterol LDL Cholesterol Direct 11/08/21 00:10 MCH RDW [place] % (Auto) Lymph # (Auto) Seg Neutrophils % Seg Neuts % (Manual) Lymphocytes % (Manual) Lymphocytes # (Manual) D-Dimer Sodium Chloride Carbon Dioxide BUN Creatinine Glucose POC Glucose 188 H Hemoglobin A1c Lactic Acid AST Troponin T Albumin Cholesterol LDL Cholesterol Direct
[2021-11-08 05:18] VITALS: BP 97/48
[2021-11-08] MEDS: BUDESONIDE 0.5 MG/2 ML NEBU IH SCH (08:03)
[2021-11-08] MEDS: IPRATROPIUM/ALBUTEROL SULFATE 3 ML AMPUL.NEB IH SCH (08:03)
[2021-11-08] MEDS: INSULIN REGULAR, HUMAN 100 UNITS/1 ML SUB-Q SCH (09:03)
--- NOTE | 2021-11-08 09:50 | Progress Note ---
Assessment and Plan Patient is 71-year-old female with a past medical history of COPD versus ILD, diabetes, and hyperlipidemia who presented to the ED today after being on the bathroom floor by her daughter the day of admission. Patient also reports shortness of breath Acute on chronic respiratory failure NSTEMI suspect type II COPD versus ILD- pulmonology follwing JACOBY Diabetes Hyperlipidemia Echo 09/04/2021-LV cavity size and wall thickness are normal. LV systolic function is normal with an estimated LVEF 50-55%. No regional wall motion abnormalities. RV cavity size is normal. RV systolic function appears mild- moderately reduced (best seen in SAX views). Normal biatrial size. Moderate tricuspid regurgitation. There is at least moderate pulmonary hypertension (PASP in 50s). No pericardial effusion. Normal aortic root size. Plan: Patient continues to deny any chest pain. No PE on CT however, per CT report patient may have early Idopathic pulmonary fibrosis. Will defer to pulmonary recommendations Patient not has not had any ischemic eval however due to acute on chronic respiratory failure,patient comorbidities, and patient currently denying chest pain recommend conservative management Continue atorvastatin 10 mg p.o. nightly No YAZ or ARB due to renal function Will hold beta-blockers due to soft blood pressures Will see as needed Patient seen in conjunction with Dr. Muro who agrees with this plan of care - Patient Problems (1) JACOBY (acute kidney injury) Current Visit: Yes Status: Acute (2) NSTEMI (non-ST elevated myocardial infarction) Current Visit: Yes Status: Acute (3) Diabetes Current Visit: Yes Status: Acute (4) SOB (shortness of breath) Current Visit: Yes Status: Acute Subjective Date of service: 11/08/21 Principal diagnosis: Acute on chronic respiratory failure Interval history: Patient is resting in bed in no acute distress. Sinus 70s on monitor with no events Objective Vital Signs Temp Pulse Pulse Resp Resp BP BP 11/08/21 08:08 11/08/21 08:04 74 16 11/08/21 05:11 97.6 F 71 19 97/48 11/08/21 00:00 85 11/07/21 21:54 108 H 19 102/58 11/07/21 21:34 11/07/21 21:32 84 16 11/07/21 19:53 11/07/21 19:52 78 11/07/21 19:45 78 11/07/21 15:00 73 11/07/21 12:57 77 107/46 11/07/21 11:00 18 11/07/21 10:25 98.3 F 102 H 18 109/74 11/07/21 10:24 102 H 21 109/74 11/07/21 10:04 80 11/07/21 10:02 83 20 110/42 11/07/21 10:01 97.8 F 83 18 110/42 Pulse Ox 11/08/21 08:08 98 11/08/21 08:04 11/08/21 05:11 94 11/08/21 00:00 11/07/21 21:54 94 11/07/21 21:34 96 11/07/21 21:32 11/07/21 19:53 96 11/07/21 19:52 11/07/21 19:45 11/07/21 15:00 11/07/21 12:57 98 11/07/21 11:00 94 11/07/21 10:25 100 11/07/21 10:24 100 11/07/21 10:04 96 11/07/21 10:02 97 11/07/21 10:01 - Physical Examination General: No Apparent Distress HEENT: Positive: PERRL Neck: Positive: trachea midline Cardiac: Positive: Reg Rate and Rhythm Lungs: Positive: Decreased Breath Sounds. Negative: Rales, Wheezes Neuro: Positive: Grossly Intact Abdomen: Positive: Soft Skin: Negative: Rash, Suspicious Lesions, Ulceration Extremities: Present: upper extr. pulses, edema - Imaging and Cardiology EKG: report reviewed, image reviewed Echo: report reviewed - Telemetry EKG Rhythm: Sinus Rhythm - EKG Sinus rhythms and dysrhythmias: sinus rhythm, sinus tachycardia
[2021-11-08] MEDS: ASPIRIN EC 81 MG TAB PO SCH (11:03)
[2021-11-08] MEDS: HEPARIN 5,000 UNIT/1 ML VIAL SUB-Q SCH (11:04)
[2021-11-08] MEDS: FUROSEMIDE 20 MG TAB PO SCH (11:04)
--- NOTE | 2021-11-08 11:40 | Discharge Summary ---
Providers - Providers Date of Admission: 11/04/21 11:30 Date of discharge: 11/08/21 Attending physician: LIZETT MAGALLANES MD 11/04/21 11:26 Consult to Physician [CONS] Routine Comment: Consulting Provider: ROSE LENTZ Physician Instructions: Reason For Exam: chf exacerbation ,elevated troponin 11/04/21 13:42 Consult to Physician [CONS] Routine Comment: Consulting Provider: KATINA CORNELL Physician Instructions: Reason For Exam: pulmonary fibrosis Primary care physician: [facility] Hospitalization Reason for admission: Acute on chronic hypoxic respiratory failure Condition: Stable Pertinent studies: Reviewed. Procedures: None. Hospital course: 71-year-old female with past medical history of congestive heart failure, COPD on home 3 L presenting to our facility with complaint of chest pain and shortness of breath. She states that symptomology started approximately 2 days ago and has been getting progressively worse. EMS reported initial oxygen saturation of 88% on room air which improved to 96% with 4 L. Patient reported chest pain associated with shortness of breath which she describes as a substernal pressure sensation, does not radiate to the jaw, does not radiate to the shoulder. She reports her appetite has been worse as well last few days. She denies any headache, fever, chills, palpitations, abdominal pain, changes in bowel or urinary habits. Remainder of ROS negative except for stated above. Of note the patient has no primary care doctor or enamel shader. She recently moved from [facility] and her daughter is her primary director of managed care. She was recently hospitalized at [facility] for similar symptoms. At the time she had elevated troponins which were stable at 0.11 and echo which showed normal ejection fraction. She was worked up for copd vs ILD and treated with antibiotics, steroids, inhalers at the time. Her renal function was stable at the time at 0.8. After discussing with daughter Aminta, patient was apparently found very confused. She has been having poor oral intake over the last past few days and diarrhea as well. Patient daughter state her mother has issues with memory but was very confused when she found her. Her work of breathing was increased and patient complaining of chest pain. She states that her mother had been hospitalized at [facility] back in August and in September. Both times it was for chest pain and shortness of breath symptoms. She also states that her mother's oxygen requirements have been increasing and have been as high as 5 L/min. After discussing the possibility of her mother having pulmonary fibrosis, the daughter stated that she was aware of this diagnosis and stated that they had up on appointment with pulmonology however were unable to make it to the office as getting appointment was difficult. In the ED, the patient was found to be tachycardic with a pulse of 118. Labs are remarkable for creatinine of 1.7 (baseline unremarkable) and troponin 0.115. Cardiology was consulted due to concerns for NSTEMI. The patient's charts were evaluated, and a TTE from 09/04/2021 revealed an EF 50-55% with normal-sized LV, normal LV systolic function, no regional wall motion abnormalities, and moderate pulmonary hypertension. Cardiology recommended further pulmonology work-up. Patient underwent CT chest without contrast revealing "moderate septal thickening in the periphery of both lungs which is most pronounced at the lung bases; there may be minimal early fibrotic changes in the subpleural regions of both lower lobes; this pattern is suggestive of early idiopathic pulmonary fibrosis; no evidence for acute infiltrate or mass." Pulmonology was consulted for further management. The patient was initiated on IV Solu-Medrol 60 mg every 6 hours for total of 3 days. She has since been transitioned to p.o. Solu- Medrol 60 mg daily and Bactrim DS 1 tab daily for PCP prophylaxis. Due to the patient initiating a pulmonology work-up for the same condition in [place], it was recommended that the patient return back to the [facility] and complete the work-up. The patient will require a surgical lung biopsy for definitive diagnosis. A transfer bronchial biopsy would not provide adequate tissue to appropriately make the correct diagnosis. The patient upon discharge, will continue with continuous oxygen at 4 L. This information has been discussed with her daughter who expresses understanding. Patient is medically clear for discharge. Disposition: 01 HOME / SELF CARE / HOMELESS Final Discharge Diagnosis (Prints w/discharge instructions): Acute on chronic hypoxic respiratory failure, possible pulmonary fibrosis, elevated troponin, JACOBY secondary to vasomotor nephropathy, history of COPD, hyperlipidemia, history of rickets, history of nicotine dependence, vascular dementia, morbid obesity Time spent for discharge: 45 min Core Measure Documentation - Palliative Care Palliative Care/ Comfort Measures: Not Applicable - Core Measures Any of the following diagnoses?: history only Exam - Constitutional Vitals: Temp Pulse Resp BP Pulse Ox 97.6 F 74 16 97/48 98 11/08/21 05:11 11/08/21 08:04 11/08/21 08:04 11/08/21 05:11 11/08/21 08:08 General appearance: Present: no acute distress, well-nourished, obese - EENT Eyes: Present: PERRL, EOM intact ENT: hearing intact, clear oral mucosa, dentition normal - Neck Neck: Present: supple, normal ROM - Respiratory Respiratory effort: normal Respiratory: bilateral: diminished (On 4 L nasal cannula) - Cardiovascular Rhythm: regular Heart Sounds: Present: S1 & S2 - Extremities Extremities: no ischemia, pulses intact, pulses symmetrical, No edema, normal temperature, normal color Peripheral Pulses: within normal limits - Abdominal General gastrointestinal: Present: soft, non-tender, non-distended, normal bowel sounds Female genitourinary: Present: deferred - Rectal Rectal Exam: deferred - Integumentary Integumentary: Present: clear, warm, dry - Musculoskeletal Musculoskeletal: generalized weakness - Psychiatric Psychiatric: appropriate mood/affect, cooperative - Neurologic Neurologic: CNII-XII intact, moves all extremities - Allied Health Allied health notes reviewed: nursing Plan Activity: advance as tolerated Diet: regular Special Instructions: home oxygen via (4 L nasal cannula (continuous)) Additional Instructions: 71-year-old female with past medical history of congestive heart failure, COPD on home 3 L presenting to our facility with complaint of chest pain and shortness of breath. She states that symptomology started approximately 2 days ago and has been getting progressively worse. EMS reported initial oxygen saturation of 88% on room air which improved to 96% with 4 L. Patient reported chest pain associated with shortness of breath which she describes as a substernal pressure sensation, does not radiate to the jaw, does not radiate to the shoulder. She reports her appetite has been worse as well last few days. She denies any headache, fever, chills, palpitations, abdominal pain, changes in bowel or urinary habits. Remainder of ROS negative except for stated above. Of note the patient has no primary care doctor or enamel shader. She recently moved from [facility] and her daughter is her primary director of managed care. She was recently hospitalized at [facility] for similar symptoms. At the time she had elevated troponins which were stable at 0.11 and echo which showed normal ejection fraction. She was worked up for copd vs ILD and treated with antibiotics, steroids, inhalers at the time. Her renal function was stable at the time at 0.8. After discussing with daughter Aminta, patient was apparently found very confused. She has been having poor oral intake over the last past few days and diarrhea as well. Patient daughter state her mother has issues with memory but was very confused when she found her. Her work of breathing was increased and patient complaining of chest pain. She states that her mother had been hospitalized at [facility] back in August and in September. Both times it was for chest pain and shortness of breath symptoms. She also states that her mother's oxygen requirements have been increasing and have been as high as 5 L/min. After discussing the possibility of her mother having pulmonary fibrosis, the daughter stated that she was aware of this diagnosis and stated that they had up on appointment with pulmonology however were unable to make it to the office as getting appointment was difficult. In the ED, the patient was found to be tachycardic with a pulse of 118. Labs are remarkable for creatinine of 1.7 (baseline unremarkable) and troponin 0.115. Cardiology was consulted due to concerns for NSTEMI. The patient's charts were evaluated, and a TTE from 09/04/2021 revealed an EF 50-55% with normal-sized LV, normal LV systolic function, no regional wall motion abnormalities, and moderate pulmonary hypertension. Cardiology recommended further pulmonology work-up. Patient underwent CT chest without contrast revealing "moderate septal thickening in the periphery of both lungs which is most pronounced at the lung bases; there may be minimal early fibrotic changes in the subpleural regions of both lower lobes; this pattern is suggestive of early idiopathic pulmonary fibrosis; no evidence for acute infiltrate or mass." Pulmonology was consulted for further management. The patient was initiated on IV Solu-Medrol 60 mg every 6 hours for total of 3 days. She has since been transitioned to p.o. Solu-Medrol 60 mg daily and Bactrim DS 1 tab daily for PCP prophylaxis. Due to the patient initiating a pulmonology work-up for the same condition in [place], it was recommended that the patient return back to the [employer] [employer] and complete the work-up. The patient will require a surgical lung biopsy for definitive diagnosis. A transfer bronchial biopsy would not provide adequate tissue to appropriately make the correct diagnosis. The patient upon discharge, will continue with continuous oxygen at 4 L. This information has been discussed with her daughter who expresses understanding. Patient is medically clear for discharge. Care Plan Goals: Patient is medically clear for discharge. Assessment: 71-year-old female with past medical history of congestive heart failure, COPD on home 3 L presenting to our facility with complaint of chest pain and shortness of breath. She states that symptomology started approximately 2 days ago and has been getting progressively worse. EMS reported initial oxygen saturation of 88% on room air which improved to 96% with 4 L. Patient reported chest pain associated with shortness of breath which she describes as a substernal pressure sensation, does not radiate to the jaw, does not radiate to the shoulder. She reports her appetite has been worse as well last few days. She denies any headache, fever, chills, palpitations, abdominal pain, changes in bowel or urinary habits. Remainder of ROS negative except for stated above. Of note the patient has no primary care doctor or enamel shader. She recently moved from [facility] and her daughter is her primary director of managed care. She was recently hospitalized at [facility] for similar symptoms. At the time she had elevated troponins which were stable at 0.11 and echo which showed normal ejection fraction. She was worked up for copd vs ILD and treated with antibiotics, steroids, inhalers at the time. Her renal function was stable at the time at 0.8. After discussing with daughter Aminta, patient was apparently found very confused. She has been having poor oral intake over the last past few days and diarrhea as well. Patient daughter state her mother has issues with memory but was very confused when she found her. Her work of breathing was increased and patient complaining of chest pain. She states that her mother had been hospitalized at [facility] back in August and in September. Both times it was for chest pain and shortness of breath symptoms. She also states that her mother's oxygen requirements have been increasing and have been as high as 5 L/min. After discussing the possibility of her mother having pulmonary fibrosis, the daughter stated that she was aware of this diagnosis and stated that they had up on ap pointment with pulmonology however were unable to make it to the office as getting appointment was difficult. In the ED, the patient was found to be tachycardic with a pulse of 118. Labs are remarkable for creatinine of 1.7 (baseline unremarkable) and troponin 0.115. Cardiology was consulted due to concerns for NSTEMI. The patient's charts were evaluated, and a TTE from 09/04/2021 revealed an EF 50-55% with normal-sized LV, normal LV systolic function, no regional wall motion abnormalities, and moderate pulmonary hypertension. Cardiology recommended further pulmonology work-up. Patient underwent CT chest without contrast revealing "moderate septal thickening in the periphery of both lungs which is most pronounced at the lung bases; there may be minimal early fibrotic changes in the subpleural regions of both lower lobes; this pattern is suggestive of early idiopathic pulmonary fibrosis; no evidence for acute infiltrate or mass." Pulmonology was consulted for further management. The patient was initiated on IV Solu-Medrol 60 mg every 6 hours for total of 3 days. She has since been transitioned to p.o. Solu- Medrol 60 mg daily and Bactrim DS 1 tab daily for PCP prophylaxis. Due to the patient initiating a pulmonology work-up for the same condition in [place], it was recommended that the patient return back to the [employer] [employer] and complete the work-up. The patient will require a surgical lung biopsy for definitive diagnosis. A transfer bronchial biopsy would not provide adequate tissue to appropriately make the correct diagnosis. The patient upon discharge, will continue with continuous oxygen at 4 L. This information has been discussed with her daughter who expresses understanding. Patient is medically clear for discharge. Follow up with: PRIMARY CARE, [Primary Care Provider] - 3-5 Days Prescriptions: Sulfamethoxazole/Trimethoprim [Bactrim DS TAB] 1 each PO DAILY #30 tab Furosemide [Lasix TAB] 20 mg PO QDAY #30 tablet methylPREDNISolone 64 mg PO QDAY #60 tab
== END 2021-11-08 13:00 | disposition home or self-care (01) | DRG 280 ==
LOC: ED 05:00 → 4A 11:30
PROVIDERS: ADMIT Internal Medicine; ATTEND Student in an Organized Health Care Education/Training Program
DX: I21.4 Non-ST elevation (NSTEMI) myocardial infarction (principal); N17.0 Acute kidney failure with tubular necrosis; J96.21 Acute and chronic respiratory failure with hypoxia; J84.10 Pulmonary fibrosis, unspecified; Z68.37 Body mass index [BMI] 37.0-37.9, adult; F03.90 Unspecified dementia, unspecified severity, without behavioral disturbance, psychotic disturbance, mood disturbance, and anxiety; J44.9 Chronic obstructive pulmonary disease, unspecified; Z96.653 Presence of artificial knee joint, bilateral; E78.5 Hyperlipidemia, unspecified; F17.200 Nicotine dependence, unspecified, uncomplicated; F01.50 Vascular dementia, unspecified severity, without behavioral disturbance, psychotic disturbance, mood disturbance, and anxiety; E66.01 Morbid (severe) obesity due to excess calories; Z71.3 Dietary counseling and surveillance; E11.9 Type 2 diabetes mellitus without complications; I27.20 Pulmonary hypertension, unspecified; I50.9 Heart failure, unspecified
CPT/HCPCS: 36415; 71045; 71250; 80048; 80061; 80076; 82140; 82962; 83036; 83880; 84484; 85007; 85025; 85379; 85610; 85730; 93005; 94640; 94760; G0378; Q0177; Q9967; J1644; J1815; J1940; J2270; J2930

== ENCOUNTER 2021-12-15 13:17 | Inpatient (IN) | payer MEDICARE ==
[2021-12-15] MEDS ORDERED: FUROSEMIDE 40 MG/4 ML INJ IV ONE (13:33)
--- NOTE | 2021-12-15 13:33 | Emergency Department Report ---
ED Shortness of Breath HPI - General Chief Complaint: Dyspnea/Respdistress Stated Complaint: SOB Time Seen by Provider: 12/15/21 13:28 Source: patient, EMS Mode of arrival: Stretcher Limitations: No Limitations - History of Present Illness Initial Comments: Patient is a 71-year-old female with history of CHF brought in by EMS from home for shortness of breath. She is on home oxygen at 3 L and recently had to increase this to 5 L/min. EMS arrived to find patient satting in the 80s and subsequently placed on a nonrebreather at 100%. She also reports recently being diagnosed with COVID last week. - Related Data Previous Rx's Medication Instructions Recorded Last Taken Type Furosemide [Lasix TAB] 20 mg PO QDAY #30 tablet 11/08/21 Unknown Rx Sulfamethoxazole/Trimethoprim 1 each PO DAILY #30 tab 11/08/21 Unknown Rx [Bactrim DS TAB] methylPREDNISolone 64 mg PO QDAY #60 tab 11/08/21 Unknown Rx Allergies Allergy/AdvReac Type Severity Reaction Status Date / Time Penicillins Allergy Unknown Verified 12/15/21 13:22 ED Review of Systems ROS: Stated complaint: SOB Other details as noted in HPI Constitutional: denies: chills, fever Respiratory: shortness of breath Cardiovascular: denies: chest pain, palpitations Gastrointestinal: denies: abdominal pain, nausea, diarrhea Genitourinary: denies: urgency, dysuria, discharge Musculoskeletal: denies: back pain, joint swelling, arthralgia Skin: denies: rash, lesions Neurological: denies: headache, weakness, paresthesias Psychiatric: denies: anxiety, depression ED Past Medical Hx - Past Medical History Hx Congestive Heart Failure: Yes Hx Diabetes: Yes Hx Asthma: Yes Hx COPD: Yes - Surgical History Hx Cholecystectomy: Yes - Social History Smoking Status: Never Smoker - Medications Home Medications: Home Medications Medication Instructions Recorded Confirmed Last Taken Type Furosemide [Lasix TAB] 20 mg PO QDAY #30 tablet 11/08/21 Unknown Rx Sulfamethoxazole/Trimethoprim 1 each PO DAILY #30 tab 11/08/21 Unknown Rx [Bactrim DS TAB] methylPREDNISolone 64 mg PO QDAY #60 tab 11/08/21 Unknown Rx ED Physical Exam - General Limitations: No Limitations General appearance: alert, in no apparent distress, obese - Head Head exam: Present: atraumatic, normocephalic - Respiratory Respiratory exam: Present: normal lung sounds bilaterally, respiratory distress - Cardiovascular Cardiovascular Exam: Present: regular rate, normal rhythm, normal heart sounds - GI/Abdominal GI/Abdominal exam: Present: soft. Absent: distended, tenderness - Rectal Rectal exam: Present: deferred - Neurological Exam Neurological exam: Present: alert, oriented X3 - Psychiatric Psychiatric exam: Present: normal affect, normal mood - Skin Skin exam: Present: warm, dry, intact, normal color ED Course Vital Signs 12/15/21 13:31 Temperature 97.8 F Pulse Rate 98 H Respiratory 24 Rate Blood Pressure 131/68 Blood Pressure 131/68 [Left] O2 Sat by Pulse 98 Oximetry ED Medical Decision Making - Lab Data Result diagrams: 12/15/21 13:57 12/15/21 13:57 - Medical Decision Making Chest x-ray shows chronic lung changes without any acute findings. WBC count 18,000. Patient was weaned from nonrebreather to 4 L nasal cannula however she became hypoxic requiring replacement of nonrebreather. Chemistry is grossly unremarkable. Patient was given IV Lasix and Solu-Medrol. Suspect her dyspnea is likely due to a combination of CHF and pulmonary fibrosis. Will admit to hospitalist for further management/pulmonary consult. Critical care attestation.: If time is entered above; I have spent that time in minutes in the direct care of this critically ill patient, excluding procedure time. ED Disposition Clinical Impression: Acute respiratory failure, Pulmonary fibrosis Disposition: ADMITTED INPATIENT Is pt being admited?: Yes Condition: Stable
--- NOTE | 2021-12-15 14:20 | XRay Report ---
CHEST 1 VIEW INDICATION / CLINICAL INFORMATION: Dyspnea STUDY TIME: 1400 COMPARISON: 11/04/2021 FINDINGS: SUPPORT DEVICES: None HEART / MEDIASTINUM: No significant abnormality. LUNGS / PLEURA: Poor degree of inspiration. Chronic changes are again noted. Congestion seen previous ly is no longer obvious. Linear densities in the lung bases are similar to previous study. No pneumot horax. ADDITIONAL FINDINGS: No significant additional findings. Signer Name: John Jaimes MD Signed: 12/15/2021 2:16 PM Workstation Name: [employer]
[2021-12-15 15:06] LABS: Alanine Aminotransferase 34 units/L (7-56); Albumin 3.6 g/dL (3.9-5); BUN/Creatinine Ratio 21; Blood Urea Nitrogen 17 mg/dL (7-17); Calcium 9.8 mg/dL (8.4-10.2); Hemolysis Index 4
[2021-12-15 15:12] LABS: Hematocrit 34.1 % (30.3-42.9); Hemoglobin 10.9 gm/dl (10.1-14.3); Mean Corpuscular HGB Conc 32 % (30-34); Mean Corpuscular Volume 86 fl (79-97); Platelet Count 409 K/mm3 (140-440); Red Blood Count 3.97 M/mm3 (3.65-5.03); Red Cell Distribution Width 19.8 % (13.2-15.2)
[2021-12-15 15:58] LABS: Basophils % (Manual) 0 % (0.0-1.8); Eosinophils % (Manual) 0 % (0.0-4.3); Total Cells Counted 100
[2021-12-15 16:00] LABS: Anisocytosis 1+; Hypochromasia Few; Poikilocytosis 1+
[2021-12-15 16:01] LABS: Ovalocytes Rare; Platelet Estimate Consistent w Auto
[2021-12-15] MEDS ORDERED: methylPREDNISolone Sod Succinate 125 MG/2 ML INJ IV ONE (18:19)
[2021-12-15] MEDS ORDERED: ONDANSETRON 4 MG/2 ML INJ IV PRN (21:20)
[2021-12-15] MEDS ORDERED: oxyCODONE /ACETAMINOPHEN 5-325MG TAB PO PRN (21:20)
[2021-12-15] MEDS ORDERED: ACETAMINOPHEN 325 MG TAB PO PRN (21:20)
[2021-12-15] MEDS ORDERED: MORPHINE 2 MG/1 ML INJ IV PRN (21:20)
[2021-12-15] MEDS: HEPARIN 5,000 UNIT/1 ML VIAL SUB-Q SCH (22:44)
[2021-12-15] MEDS: FAMOTIDINE 20 MG TAB PO SCH (22:44)
[2021-12-15] MEDS: SPIRONOLACTONE 25 MG TAB PO SCH (23:18)
[2021-12-16] MEDS: FUROSEMIDE 40 MG/4 ML INJ IV SCH ×2 (05:30→17:45)
--- NOTE | 2021-12-16 06:57 | History and Physical Report ---
History of Present Illness Date of examination: 12/15/21 Date of admission: 12/15/21 21:20 Chief complaint: Increasing shortness of breath for 3 days History of present illness: 71-year-old -[place] female with history of CHF for the last few years on home oxygen at 3 L comes in for increasing shortness of breath and her oxygen level has to be increased to 5 L/min. Her initial oxygen saturations were 80% on room air. Patient asked to be switched to 100% nonrebreather. Patient has class IV NYHA symptoms. No fever or chills. Shortness of breath on very minimal exertion. Orthopnea present. No PND attacks. Oxygen levels had to be increased from 3 L to nonrebreather - Past Medical History --Congestive Heart Failure: Yes --Diabetes: Yes --Asthma: Yes --COPD: Yes - Surgical History --Cholecystectomy: Yes - Social History --Smoking Status: Never Smoker - Medications --Home Medications: Home Medications Medication Instructions Recorded Confirmed Last Taken Type Furosemide [Lasix TAB] 20 mg PO QDAY #30 tablet 11/08/21 Unknown Rx Sulfamethoxazole/Trimethoprim 1 each PO DAILY #30 tab 11/08/21 Unknown Rx [Bactrim DS TAB] methylPREDNISolone 64 mg PO QDAY #60 tab 11/08/21 Unknown Rx Review of Systems ROS: Stated complaint: SOB Other details as noted in HPI Constitutional: denies: chills, fever Respiratory: shortness of breath Cardiovascular: denies: chest pain, palpitations Gastrointestinal: denies: abdominal pain, nausea, diarrhea Genitourinary: denies: urgency, dysuria, discharge Musculoskeletal: denies: back pain, joint swelling, arthralgia Skin: denies: rash, lesions Neurological: denies: headache, weakness, paresthesias Psychiatric: denies: anxiety, depression Medications and Allergies Allergies Allergy/AdvReac Type Severity Reaction Status Date / Time Penicillins Allergy Unknown Verified 12/15/21 13:22 Home Medications Medication Instructions Recorded Confirmed Last Taken Type Furosemide [Lasix TAB] 20 mg PO QDAY #30 tablet 11/08/21 12/16/21 Unknown Rx Sulfamethoxazole/Trimethoprim 1 each PO DAILY #30 tab 22 12/16/21 Unknown Rx [Bactrim DS TAB] methylPREDNISolone 64 mg PO QDAY #60 tab 06/20/22 07/28/22 Unknown Rx Active Meds: Active Medications Acetaminophen (Acetaminophen 325 Mg Tab) 650 mg PO Q4H PRN PRN Reason: Pain MILD(1-3)/Fever >100.5/WONG Famotidine (Famotidine 20 Mg Tab) 20 mg PO BID [facility] Last Admin: 12/15/21 22:44 Dose: 20 mg Furosemide (Furosemide 40 Mg/4 Ml Inj) 40 mg IV 0600,1800 [facility] Last Admin: 12/16/21 05:30 Dose: 40 mg Heparin Sodium (Porcine) (Heparin 5,000 Unit/1 Ml Vial) 5,000 unit SUB-Q Q12HR [facility] Last Admin: 12/15/21 22:44 Dose: 5,000 unit Morphine Sulfate (Morphine 2 Mg/1 Ml Inj) 2 mg IV Q4H PRN PRN Reason: Pain, Moderate (4-6) Ondansetron HCl (Ondansetron 4 Mg/2 Ml Inj) 4 mg IV Q8H PRN PRN Reason: Nausea And Vomiting Oxycodone/Acetaminophen (Oxycodone /Acetaminophen 5-325mg Tab) 1 tab PO Q6H PRN PRN Reason: Pain, Moderate (4-6) Sodium Chloride (Sodium Chloride 0.9% 10 Ml Flush Syringe) 10 ml IV BID [facility] Last Admin: 12/15/21 22:44 Dose: 10 ml Sodium Chloride (Sodium Chloride 0.9% 10 Ml Flush Syringe) 10 ml IV PRN PRN PRN Reason: LINE FLUSH Last Admin: 12/16/21 05:29 Dose: 10 ml Spironolactone (Spironolactone 25 Mg Tab) 50 mg PO QDAY [facility] Last Admin: 12/15/21 23:18 Dose: 50 mg Exam - Constitutional Vitals: Temp Pulse Resp BP Pulse Ox 97.8 F 84 24 142/70 95 12/16/21 05:12 12/16/21 05:12 12/16/21 05:12 12/16/21 05:12 12/16/21 05:12 General appearance: Present: severe distress, well-nourished - EENT Eyes: Present: PERRL ENT: hearing intact, clear oral mucosa - Neck Neck: Present: supple, normal ROM - Respiratory Respiratory effort: normal Respiratory: bilateral: CTA, rales (Bilateral) - Cardiovascular Heart rate: 78 Rhythm: regular Heart Sounds: Present: S1 & S2. Absent: rub, click - Extremities Extremities: no ischemia, pulses intact, pulses symmetrical, No edema Peripheral Pulses: within normal limits - Abdominal General gastrointestinal: Present: soft, non-tender, non-distended, normal bowel sounds Female genitourinary: Present: normal - Integumentary Integumentary: Present: clear, warm, dry - Musculoskeletal Musculoskeletal: gait normal, strength equal bilaterally - Psychiatric Psychiatric: appropriate mood/affect, intact judgment & insight - Neurologic Neurologic: CNII-XII intact, moves all extremities HEART Score - HEART Score History: Moderately suspicious Age: > 65 Risk factors: 1-2 risk factors Troponin: Troponin T < 0.010 ng/mL (0.00-0.029) 12/15/21 13:57 Troponin: 1-3x normal limit - Critical Actions Critical Actions: 4-6 pts:12-16.6% risk of adverse cardiac event. Should be admitted Results - Labs CBC & Chem 7: 12/15/21 13:57 12/15/21 13:57 Labs: Laboratory Last Values WBC 18.8 K/mm3 (4.5-11.0) H 12/15/21 13:57 RBC 3.97 M/mm3 (3.65-5.03) 12/15/21 13:57 Hgb 10.9 gm/dl (10.1-14.3) 12/15/21 13:57 Hct 34.1 % (30.3-42.9) 12/15/21 13:57 MCV 86 fl (79-97) 12/15/21 13:57 MCH 28 pg (28-32) 12/15/21 13:57 MCHC 32 % (30-34) 12/15/21 13:57 RDW 19.8 % (13.2-15.2) H 12/15/21 13:57 Plt Count 409 K/mm3 (140-440) 12/15/21 13:57 Add Manual Diff Complete 12/15/21 13:57 Total Counted 100 12/15/21 13:57 Seg Neuts % (Manual) 83.0 % (40.0-70.0) H 12/15/21 13:57 Band Neutrophils % 0 % 12/15/21 13:57 Lymphocytes % (Manual) 5.0 % (13.4-35.0) L 12/15/21 13:57 Reactive Lymphs % (Man) 0 % 12/15/21 13:57 Monocytes % (Manual) 11.0 % (0.0-7.3) H 12/15/21 13:57 Eosinophils % (Manual) 0 % (0.0-4.3) 12/15/21 13:57 Basophils % (Manual) 0 % (0.0-1.8) 12/15/21 13:57 Metamyelocytes % 1.0 % 12/15/21 13:57 Myelocytes % 0 % 12/15/21 13:57 Promyelocytes % 0 % 12/15/21 13:57 Blast Cells % 0 % 12/15/21 13:57 Nucleated RBC % Not Reportable 12/15/21 13:57 Seg Neutrophils # Man 15.6 K/mm3 (1.8-7.7) H 12/15/21 13:57 Band Neutrophils # 0.0 K/mm3 12/15/21 13:57 Lymphocytes # (Manual) 0.9 K/mm3 (1.2-5.4) L 12/15/21 13:57 Abs React Lymphs (Man) 0.0 K/mm3 12/15/21 13:57 Monocytes # (Manual) 2.1 K/mm3 (0.0-0.8) H 12/15/21 13:57 Eosinophils # (Manual) 0.0 K/mm3 (0.0-0.4) 12/15/21 13:57 Basophils # (Manual) 0.0 K/mm3 (0.0-0.1) 12/15/21 13:57 Metamyelocytes # 0.2 K/mm3 12/15/21 13:57 Myelocytes # 0.0 K/mm3 12/15/21 13:57 Promyelocytes # 0.0 K/mm3 12/15/21 13:57 Blast Cells # 0.0 K/mm3 12/15/21 13:57 WBC Morphology Not Reportable 12/15/21 13:57 Hypersegmented Neuts Not Reportable 12/15/21 13:57 Hyposegmented Neuts Not Reportable 12/15/21 13:57 Hypogranular Neuts Not Reportable 12/15/21 13:57 Smudge Cells Not Reportable 12/15/21 13:57 Toxic Granulation Not Reportable 12/15/21 13:57 Toxic Vacuolation Not Reportable 12/15/21 13:57 Dohle Bodies Not Reportable 12/15/21 13:57 Pelger-Huet Anomaly Not Reportable 12/15/21 13:57 Kelli Rods Not Reportable 12/15/21 13:57 Platelet Estimate Consistent w auto 12/15/21 13:57 Clumped Platelets Not Reportable 12/15/21 13:57 Plt Clumps, EDTA Not Reportable 12/15/21 13:57 Large Platelets Not Reportable 12/15/21 13:57 Giant Platelets Not Reportable 12/15/21 13:57 Platelet Satelliting Not Reportable 12/15/21 13:57 Plt Morphology Comment Not Reportable 12/15/21 13:57 RBC Morphology Not Reportable 12/15/21 13:57 Dimorphic RBCs Not Reportable 12/15/21 13:57 Polychromasia Rare 12/15/21 13:57 Hypochromasia Few 12/15/21 13:57 Poikilocytosis 1+ 12/15/21 13:57 Anisocytosis 1+ 12/15/21 13:57 Microcytosis 1+ 12/15/21 13:57 Macrocytosis Not Reportable 12/15/21 13:57 Spherocytes Not Reportable 12/15/21 13:57 Pappenheimer Bodies Not Reportable 12/15/21 13:57 Sickle Cells Not Reportable 12/15/21 13:57 Target Cells Not Reportable 12/15/21 13:57 Tear Drop Cells Not Reportable 12/15/21 13:57 Ovalocytes Rare 12/15/21 13:57 Helmet Cells Not Reportable 12/15/21 13:57 [place] Bodies Not Reportable 12/15/21 13:57 Wells Rings Not Reportable 12/15/21 13:57 Ariela Cells Not Reportable 12/15/21 13:57 Bite Cells Not Reportable 12/15/21 13:57 Crenated Cell Not Reportable 12/15/21 13:57 Elliptocytes Rare 12/15/21 13:57 Acanthocytes (Spur) Rare 12/15/21 13:57 Rouleaux Not Reportable 12/15/21 13:57 Hemoglobin C Crystals Not Reportable 12/15/21 13:57 Schistocytes Not Reportable 12/15/21 13:57 Malaria parasites Not Reportable 12/15/21 13:57 Pedro Bodies Not Reportable 12/15/21 13:57 Hem Pathologist Commnt No 12/15/21 13:57 Sodium 140 mmol/L (137-145) 12/15/21 13:57 Potassium 4.1 mmol/L (3.6-5.0) 12/15/21 13:57 Chloride 102.7 mmol/L (98-107) 12/15/21 13:57 Carbon Dioxide 26 mmol/L (22-30) 12/15/21 13:57 Anion Gap 15 mmol/L 12/15/21 13:57 BUN 17 mg/dL (7-17) 12/15/21 13:57 Creatinine 0.8 mg/dL (0.6-1.2) 12/15/21 13:57 Estimated GFR > 60 ml/min 12/15/21 13:57 BUN/Creatinine Ratio 21 % 12/15/21 13:57 Glucose 104 mg/dL (65-100) H 12/15/21 13:57 Calcium 9.8 mg/dL (8.4-10.2) 12/15/21 13:57 Magnesium 1.90 mg/dL (1.7-2.3) 12/15/21 13:57 Total Bilirubin 0.20 mg/dL (0.1-1.2) 12/15/21 13:57 AST 26 units/L (5-40) 12/15/21 13:57 ALT 34 units/L (7-56) 12/15/21 13:57 Alkaline Phosphatase 102 units/L (35-129) 12/15/21 13:57 Troponin T < 0.010 ng/mL (0.00-0.029) 12/15/21 13:57 Total Protein 6.8 g/dL (6.3-8.2) 12/15/21 13:57 Albumin 3.6 g/dL (3.9-5) L 12/15/21 13:57 Albumin/Globulin Ratio 1.1 % 12/15/21 13:57 Short CBC 12/15/21 Range/Units 13:57 WBC 18.8 H (4.5-11.0) K/mm3 Hgb 10.9 (10.1-14.3) gm/dl Hct 34.1 (30.3-42.9) % Plt Count 409 (140-440) K/mm3 BMP 12/15/21 13:57 Sodium 140 Potassium 4.1 Chloride 102.7 Carbon Dioxide 26 BUN 17 Creatinine 0.8 Glucose 104 H Calcium 9.8 Cardiac Enzymes 12/15/21 Range/Units 13:57 Troponin T < 0.010 (0.00-0.029) ng/mL Liver Function 12/15/21 Range/Units 13:57 Total Bilirubin 0.20 (0.1-1.2) mg/dL AST 26 (5-40) units/L ALT 34 (7-56) units/L Alkaline Phosphatase 102 (35-129) units/L Albumin 3.6 L (3.9-5) g/dL - Imaging and Cardiology EKG: report reviewed (Dialysis tachycardia heart rate of 101/min nonspecific T wave abnormalities in the anterolateral leads) Chest x-ray: report reviewed Imaging and Cardiology: Chest x-ray Poor degree of inspiration Chronic changes are again noted Congestion seen previously is no longer obvious Sheba and densities in the lung bases are similar to previous study no pneumothorax. [place]/IV: Voiding Method Toilet Assessment and Plan Advance Directives: Yes (Full code) Plan of care discussed with patient/family: Yes - Patient Problems (1) Acute respiratory failure with hypoxia Current Visit: Yes Status: Acute Plan to address problem: Patient was severely hypoxic at the time of admission Oxygen saturations were at 80% She is on 3 L nasal cannula oxygen at home Increased to 100% nonrebreather IV Lasix Echocardiogram Daily intake output Daily weights cardiology consult requested (2) Acute exacerbation of CHF (congestive heart failure) Current Visit: Yes Status: Acute Qualifiers: Heart failure type: combined systolic and diastolic Qualified Code(s): I50.43 - Acute on chronic combined systolic (congestive) and diastolic (congestive) heart failure Plan to address problem: IV Lasix 40 mg every 12 Aldactone 50 mg daily Cardiology consult Daily intake output Daily weights Echocardiogram if not done recently (3) COPD (chronic obstructive pulmonary disease) Current Visit: Yes Status: Chronic Qualifiers: Emphysema type: unspecified Plan to address problem: Duo nebs every 6 hours [id number] and daily every 3 hours as needed (4) DVT prophylaxis Current Visit: Yes Status: Acute Plan to address problem: On heparin and GI prophylaxis (5) Advance care planning Current Visit: Yes Status: Acute Plan to address problem: Disease education conducted, care plan discussed, diagnosis discussed and prognosis discussed. Patient acknowledged understanding with care plan +30 minutes.
--- NOTE | 2021-12-16 10:07 | Electrocardiograph Report ---
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
[2021-12-16] MEDS: FAMOTIDINE 20 MG TAB PO SCH ×2 (10:54→21:31)
[2021-12-16] MEDS: HEPARIN 5,000 UNIT/1 ML VIAL SUB-Q SCH ×2 (10:55→21:31)
[2021-12-16] MEDS: SPIRONOLACTONE 25 MG TAB PO SCH (11:07)
[2021-12-16 15:01] LABS: Hematocrit 39.1 % (30.3-42.9); Hemoglobin 12.6 gm/dl (10.1-14.3); Mean Corpuscular HGB Conc 32 % (30-34); Mean Corpuscular Volume 86 fl (79-97); Platelet Count 490 K/mm3 (140-440); Red Blood Count 4.57 M/mm3 (3.65-5.03)
[2021-12-16 15:02] LABS: Red Cell Distribution Width 20.3 % (13.2-15.2)
[2021-12-16 15:22] LABS: Alanine Aminotransferase 40 units/L (7-56); Albumin 4.1 g/dL (3.9-5); BUN/Creatinine Ratio 26; Blood Urea Nitrogen 23 mg/dL (7-17); Calcium 10.2 mg/dL (8.4-10.2); Hemolysis Index 6
[2021-12-16] MEDS ORDERED: diazePAM 2 MG TAB PO PRN (16:03)
[2021-12-16 16:09] LABS: Anisocytosis 1+; Basophils % (Manual) 0 % (0.0-1.8); Eosinophils % (Manual) 0 % (0.0-4.3); Platelet Estimate Consistent w Auto; Total Cells Counted 100
[2021-12-17] MEDS ORDERED: guaiFENesin DM 200/20 MG ORAL LIQD 10 ML PO PRN (03:44)
[2021-12-17] MEDS: FUROSEMIDE 40 MG/4 ML INJ IV SCH ×2 (06:12→18:19)
--- NOTE | 2021-12-17 09:38 | Progress Note ---
Assessment and Plan - Patient Problems (1) Acute respiratory failure with hypoxia Current Visit: Yes Status: Acute Plan to address problem: Patient was severely hypoxic at the time of admission Oxygen saturations were at 80% She is on 3 L nasal cannula oxygen at home Increased to 100% nonrebreather IV Lasix Echocardiogram Daily intake output Daily weights cardiology consult requested (2) Acute exacerbation of CHF (congestive heart failure) Current Visit: Yes Status: Acute Qualifiers: Heart failure type: combined systolic and diastolic Qualified Code(s): I50.43 - Acute on chronic combined systolic (congestive) and diastolic (congestive) heart failure Plan to address problem: IV Lasix 40 mg every 12 Aldactone 50 mg daily Cardiology consult Daily intake output Daily weights Echocardiogram if not done recently (3) COPD (chronic obstructive pulmonary disease) Current Visit: Yes Status: Chronic Qualifiers: Emphysema type: unspecified Plan to address problem: Duo nebs every 6 hours [id number] and daily every 3 hours as needed (4) DVT prophylaxis Current Visit: Yes Status: Acute Plan to address problem: On heparin and GI prophylaxis (5) Advance care planning Current Visit: Yes Status: Acute Plan to address problem: Disease education conducted, care plan discussed, diagnosis discussed and prognosis discussed. Patient acknowledged understanding with care plan +30 minutes. Subjective Date of service: 12/17/21 Objective - Constitutional Vitals: Vital Signs - 12hr 12/16/21 12/17/21 22:13 05:11 Temperature 98.5 F Pulse Rate 70 Respiratory 18 Rate Blood Pressure 116/63 O2 Sat by Pulse 96 99 Oximetry General appearance: Present: no acute distress, mild distress, well-nourished - EENT Eyes: PERRL, EOM intact ENT: hearing intact, clear oral mucosa Ears: bilateral: normal - Neck Neck: supple, normal ROM - Respiratory Respiratory effort: normal Respiratory: bilateral: CTA - Breasts Breasts: normal - Cardiovascular Rhythm: regular Heart Sounds: Present: S1 & S2. Absent: gallop, rub Extremities: pulses intact, No edema, normal color, Full ROM - Gastrointestinal General gastrointestinal: Present: soft, non-tender, non-distended, normal bowel sounds - Genitourinary Female genitourinary: normal - Integumentary Integumentary: clear, warm, dry - Musculoskeletal Musculoskeletal: 1, strength equal bilaterally - Neurologic Neurologic: moves all extremities - Psychiatric Psychiatric: memory intact, appropriate mood/affect, intact judgment & insight - Labs CBC & Chem 7: 12/16/21 14:10 12/16/21 14:10 Labs: Abnormal lab results 12/16/21 12/16/21 12/16/21 Range/Units 11:53 14:10 14:10 WBC 20.5 H (4.5-11.0) K/mm3 RDW 20.3 H (13.2-15.2) % Plt Count 490 H (140-440) K/mm3 Seg Neuts % (Manual) 83.0 H (40.0-70.0) % Lymphocytes % (Manual) 9.0 L (13.4-35.0) % Monocytes % (Manual) 8.0 H (0.0-7.3) % Seg Neutrophils # Man 17.0 H (1.8-7.7) K/mm3 Monocytes # (Manual) 1.6 H (0.0-0.8) K/mm3 BUN 23 H (7-17) mg/dL Glucose 117 H (65-100) mg/dL POC Glucose 159 H (70-105) mg/dL 12/16/21 12/16/21 12/17/21 Range/Units 17:25 21:31 08:10 WBC (4.5-11.0) K/mm3 RDW (13.2-15.2) % Plt Count (140-440) K/mm3 Seg Neuts % (Manual) (40.0-70.0) % Lymphocytes % (Manual) (13.4-35.0) % Monocytes % (Manual) (0.0-7.3) % Seg Neutrophils # Man (1.8-7.7) K/mm3 Monocytes # (Manual) (0.0-0.8) K/mm3 BUN (7-17) mg/dL Glucose (65-100) mg/dL POC Glucose 127 H 137 H 122 H (70-105) mg/dL HEART Score - HEART Score Age: > 65 Risk factors: 1-2 risk factors Troponin: Troponin T < 0.010 ng/mL (0.00-0.029) 12/15/21 13:57 Troponin: 1-3x normal limit - Critical Actions Critical Actions: 4-6 pts:12-16.6% risk of adverse cardiac event. Should be admitted
[2021-12-17] MEDS: SPIRONOLACTONE 25 MG TAB PO SCH (11:13)
[2021-12-17] MEDS: FAMOTIDINE 20 MG TAB PO SCH ×2 (11:16→21:34)
[2021-12-17] MEDS: HEPARIN 5,000 UNIT/1 ML VIAL SUB-Q SCH ×2 (11:16→21:34)
[2021-12-17] MEDS: diazePAM 5 MG TAB PO PRN (18:19)
[2021-12-18] MEDS: FUROSEMIDE 40 MG/4 ML INJ IV SCH ×2 (06:40→18:05)
[2021-12-18] MEDS: SPIRONOLACTONE 25 MG TAB PO SCH (09:53)
[2021-12-18] MEDS: HEPARIN 5,000 UNIT/1 ML VIAL SUB-Q SCH ×2 (09:53→21:02)
[2021-12-18] MEDS: FAMOTIDINE 20 MG TAB PO SCH ×2 (09:55→21:02)
--- NOTE | 2021-12-18 16:11 | Discharge Summary ---
Providers - Providers Date of Admission: 12/15/21 21:20 Date of discharge: 12/18/21 Attending physician: YONI RUBIN Primary care physician: VIET COTTO MD Hospitalization Condition: Stable Disposition: 01 HOME / SELF CARE / HOMELESS - Discharge Diagnoses (1) Acute respiratory failure with hypoxia Status: Acute (2) Acute exacerbation of CHF (congestive heart failure) Status: Acute Qualifiers: Heart failure type: combined systolic and diastolic Qualified Code(s): I50.43 - Acute on chronic combined systolic (congestive) and diastolic (congestive) heart failure (3) COPD (chronic obstructive pulmonary disease) Status: Chronic Qualifiers: Emphysema type: unspecified (4) DVT prophylaxis Status: Acute (5) Advance care planning Status: Acute Exam - Constitutional Vitals: Temp Pulse Resp BP Pulse Ox 99.0 F 106 H 20 109/67 98 12/18/21 15:55 12/18/21 15:55 12/18/21 15:55 12/18/21 15:55 12/18/21 15:55 Plan Follow up with: VIET COTTO MD [Primary Care Provider] - 7 Days
[2021-12-18] MEDS: diazePAM 5 MG TAB PO PRN (21:01)
[2021-12-19] MEDS: FUROSEMIDE 40 MG/4 ML INJ IV SCH (06:11)
[2021-12-19] MEDS: FAMOTIDINE 20 MG TAB PO SCH (10:35)
[2021-12-19] MEDS: SPIRONOLACTONE 25 MG TAB PO SCH (10:35)
[2021-12-19 10:36] VITALS: BP 105/57
[2021-12-19] MEDS: HEPARIN 5,000 UNIT/1 ML VIAL SUB-Q SCH (10:36)
== END 2021-12-19 12:11 | disposition home or self-care (01) | DRG 291 ==
LOC: ED 13:17 → 4A 21:20 → 3A 12-16 01:25
PROVIDERS: ADMIT Internal Medicine; ATTEND Internal Medicine
DX: I50.43 Acute on chronic combined systolic (congestive) and diastolic (congestive) heart failure (principal); J96.01 Acute respiratory failure with hypoxia; Z20.822 Contact with and (suspected) exposure to COVID-19; J44.9 Chronic obstructive pulmonary disease, unspecified; E11.9 Type 2 diabetes mellitus without complications; J84.10 Pulmonary fibrosis, unspecified; Z88.0 Allergy status to penicillin; Z90.49 Acquired absence of other specified parts of digestive tract
CPT/HCPCS: 36415; 71045; 80053; 82962; 83735; 84484; 85007; 85025; 93005; 93306; G0378; C8929; J1644; J1940; J2930; U0003

== ENCOUNTER 2022-02-02 19:00 | Inpatient (IN) | payer MEDICARE ==
--- NOTE | 2022-02-02 19:35 | Emergency Department Report ---
ED General Adult HPI - General Chief complaint: Dyspnea/Respdistress Stated complaint: CARLEY Time Seen by Provider: 02/02/22 19:32 Source: patient, EMS Mode of arrival: Stretcher Limitations: No Limitations - History of Present Illness Initial comments: Patient presents to the emergency department the chief complaint of shortness of breath has been present for the last day. Patient has a history of congestive heart failure and takes Lasix daily. Patient states her symptoms are worse when lying flat or with any exertion. She denies chest pain. -: Sudden Severity scale (0 -10): 0 Consistency: constant Improves with: none Worsens with: movement Associated Symptoms: denies other symptoms Treatments Prior to Arrival: none - Related Data Previous Rx's Medication Instructions Recorded Last Taken Type Sulfamethoxazole/Trimethoprim 1 each PO DAILY #30 tab 11/08/21 Unknown Rx [Bactrim DS TAB] methylPREDNISolone 64 mg PO QDAY #60 tab 11/08/21 Unknown Rx Budesonide/Formoterol Fumarate 10.2 gm IH BID #1 12/18/21 Unknown Rx [Symbicort 160-4.5 Mcg Inhaler] Famotidine [Pepcid] 20 mg PO BID 30 Days #60 tablet 12/18/21 Unknown Rx Furosemide [Lasix TAB] 40 mg PO QDAY #30 tablet 12/18/21 Unknown Rx Spironolactone [Aldactone] 25 mg PO QDAY 30 Days #30 tablet 12/18/21 Unknown Rx diazePAM TAB [Valium] 5 mg PO Q8H PRN tablet 12/18/21 Unknown Rx oxyCODONE /ACETAMINOPHEN [Percocet 1 tab PO Q6H PRN #12 tablet 12/18/21 Unknown Rx 5/325 mg] Allergies Allergy/AdvReac Type Severity Reaction Status Date / Time codeine Allergy Shortness Verified 02/02/22 20:01 of Breath Penicillins Allergy Unknown Verified 12/15/21 13:22 red dye Allergy Shortness Verified 02/02/22 20:01 of Breath ED Review of Systems ROS: Stated complaint: CARLEY Other details as noted in HPI Constitutional: denies: chills, fever Eyes: denies: eye pain, eye discharge, vision change ENT: denies: ear pain, throat pain Respiratory: shortness of breath. denies: cough, wheezing Cardiovascular: denies: chest pain, palpitations Endocrine: no symptoms reported Gastrointestinal: denies: abdominal pain, nausea, diarrhea Genitourinary: denies: urgency, dysuria, discharge Musculoskeletal: denies: back pain, joint swelling, arthralgia Skin: denies: rash, lesions Neurological: denies: headache, weakness, paresthesias Psychiatric: denies: anxiety, depression Hematological/Lymphatic: denies: easy bleeding, easy bruising ED Past Medical Hx - Past Medical History Hx Hypertension: Yes Hx Congestive Heart Failure: Yes Hx Diabetes: Yes Hx Asthma: Yes Hx COPD: Yes - Surgical History Hx Cholecystectomy: Yes - Social History Smoking Status: Never Smoker - Medications Home Medications: Home Medications Medication Instructions Recorded Confirmed Last Taken Type Sulfamethoxazole/Trimethoprim 1 each PO DAILY #30 tab 11/08/21 12/16/21 Unknown Rx [Bactrim DS TAB] methylPREDNISolone 64 mg PO QDAY #60 tab 11/08/21 12/16/21 Unknown Rx Budesonide/Formoterol Fumarate 10.2 gm IH BID #1 12/18/21 Unknown Rx [Symbicort 160-4.5 Mcg Inhaler] Famotidine [Pepcid] 20 mg PO BID 30 Days #60 tablet 12/18/21 Unknown Rx Furosemide [Lasix TAB] 40 mg PO QDAY #30 tablet 12/18/21 Unknown Rx Spironolactone [Aldactone] 25 mg PO QDAY 30 Days #30 tablet 12/18/21 Unknown Rx diazePAM TAB [Valium] 5 mg PO Q8H PRN tablet 12/18/21 Unknown Rx oxyCODONE /ACETAMINOPHEN [Percocet 1 tab PO Q6H PRN #12 tablet 12/18/21 Unknown Rx 5/325 mg] ED Physical Exam - General Limitations: No Limitations General appearance: alert, in no apparent distress - Head Head exam: Present: atraumatic, normocephalic - Eye Eye exam: Present: normal appearance, PERRL, EOMI - ENT ENT exam: Present: mucous membranes moist - Neck Neck exam: Present: normal inspection - Respiratory Respiratory exam: Present: rales. Absent: respiratory distress - Cardiovascular Cardiovascular Exam: Present: normal rhythm, tachycardia. Absent: systolic murmur, diastolic murmur, rubs, gallop - GI/Abdominal GI/Abdominal exam: Present: soft, normal bowel sounds. Absent: distended, te nderness - Extremities Exam Extremities exam: Present: pedal edema, other (1+ edema bilaterally) - Back Exam Back exam: Present: normal inspection - Neurological Exam Neurological exam: Present: alert, oriented X3, CN II-XII intact. Absent: motor sensory deficit - Psychiatric Psychiatric exam: Present: normal affect, normal mood - Skin Skin exam: Present: warm, dry, intact, normal color. Absent: rash ED Course Vital Signs 02/02/22 02/02/22 02/02/22 19:15 19:18 20:06 Temperature 101.0 F H 97.9 F Pulse Rate 151 H 156 H 149 H Respiratory 27 H 16 25 H Rate Blood Pressure 143/97 110/72 [Right] O2 Sat by Pulse 95 98 98 Oximetry ED Medical Decision Making - Lab Data Result diagrams: 02/02/22 20:36 02/02/22 20:36 - EKG Data -: EKG Interpreted by Me EKG shows normal: sinus rhythm Rate: tachycardia - Medical Decision Making Upon patient's arrival on room air the patient's sats were in the 80s Patient was placed on a nonrebreather Respiratory status became worse and the patient was placed on BiPAP Patient received IV fluids and IV antibiotics Critical Care Time: Yes Critical care time in (mins) excluding proc time.: 35 Critical care attestation.: If time is entered above; I have spent that time in minutes in the direct care of this critically ill patient, excluding procedure time. ED Disposition Clinical Impression: Sepsis, Acute respiratory failure, Multifocal pneumonia Disposition: ADMITTED INPATIENT Is pt being admited?: Yes Does the pt Need Aspirin: No Condition: Critical Instructions: Bacterial Pneumonia (ED)
--- NOTE | 2022-02-02 20:23 | XRay Report ---
CHEST 1 VIEW 02/02/2022 7:43 PM INDICATION / CLINICAL INFORMATION: sob. COMPARISON: 12/15/2021 FINDINGS: SUPPORT DEVICES: None. HEART / MEDIASTINUM: No significant abnormality. LUNGS / PLEURA: Increased airspace opacities in bilateral lower lobes. No pneumothorax. ADDITIONAL FINDINGS: No significant additional findings. IMPRESSION: 1. Increased airspace opacities bilateral lower lobes concerning for multifocal pneumonia. Additional considerations would include chronic interstitial lung disease versus pulmonary edema versus atypica l infectious process. Signer Name: Jose Maria Quiroz DO Signed: 02/02/2022 8:19 PM Workstation Name: [id number]
[2022-02-02] MEDS ORDERED: CEFEPIME/NS 2 GM/100 ML 2 GM/100 ML BAG IV ONE (21:15)
[2022-02-02 21:34] LABS: Alanine Aminotransferase 23 units/L (7-56); BUN/Creatinine Ratio 10; Blood Urea Nitrogen 11 mg/dL (7-17); Calcium 9.3 mg/dL (8.4-10.2); Hemolysis Index 18
[2022-02-02 21:48] LABS: Hematocrit 38.7 % (30.3-42.9); Hemoglobin 12.5 gm/dl (10.1-14.3); Mean Corpuscular HGB Conc 32 % (30-34); Mean Corpuscular Volume 87 fl (79-97); Platelet Count 271 K/mm3 (140-440); Red Blood Count 4.44 M/mm3 (3.65-5.03); Red Cell Distribution Width 16.7 % (13.2-15.2)
[2022-02-02 22:36] LABS: Anisocytosis 1+; Band Neutrophils # (Manual) 0.5 K/mm3; Basophils % (Manual) 0 % (0.0-1.8); Platelet Estimate Consistent w Auto; Total Cells Counted 100
[2022-02-02 22:39] LABS: ABG Base Excess 1.2 mmol/L (-2.0-3.0); ABG Methemoglobin 0.5 % (0.0-1.5); ABG Oxygen Saturation 98.6 % (95.0-99.0); ABG PCO2 36.5 mm Hg; ABG PH 7.452 pH Units (7.350-7.450); ABG PO2 129.2 mm Hg (80.0-90.0)
[2022-02-02] MEDS ORDERED: IBUPROFEN 600 MG TAB PO PRN (23:09)
[2022-02-02] MEDS ORDERED: MAGNESIUM HYDROXIDE (MOM) ORAL LIQD UDC PO PRN (23:25)
[2022-02-02] MEDS ORDERED: MORPHINE 4 MG/1 ML INJ IV PRN (23:25)
[2022-02-02] MEDS ORDERED: ONDANSETRON 4 MG/2 ML INJ IV PRN (23:25)
[2022-02-02] MEDS ORDERED: DEXTROSE 50% IN WATER (25GM) 50 ML SYRINGE IV PRN (23:25)
[2022-02-02] MEDS ORDERED: SODIUM CHLORIDE 0.9% 1000 ML 1,000 ML IV SCH (23:30)
--- NOTE | 2022-02-02 23:44 | History and Physical Report ---
History of Present Illness Date of examination: 02/02/22 Date of admission: 02/02/2022 Chief complaint: Shortness of Breath x 2 days History of present illness: 71-year-old [place]ian female with known history of CHF, diabetes mellitus, hypertension and COPD presenting to the emergency room today complaining of shortness of breath which has been ongoing for the past 2 days. Patient has also had some mild fever and chills at home. She denies any sick contacts and n o recent travel. Denies any contact with anyone with COVID-19. Patient is vaccinated against COVID-19 however she has not received a booster shot. Patient denies any chest pain. Denies any headache or dizziness and denies any diaphoresis. Upon arrival in the emergency room patient was found to be tachycardic and hypoxic with O2 saturation of about 80%. She was initially on nonrebreather and subsequently placed on the BiPAP. Work-up in the emergency room today, lab reveals leukocytosis of 13. BNP of 34. All other labs were essentially within normal limits. Chest x-ray however reveals: Increased airspace opacities bilaterally in the lower lobes concerning for multifocal pneumonia. Patient has been commenced on empiric IV antibiotics. Past History Past Medical History: COPD, diabetes, heart failure, hypertension, other (H/O Asthma) Past Surgical History: cholecystectomy Social history: no significant social history Family history: no significant family history Medications and Allergies Allergies Allergy/AdvReac Type Severity Reaction Status Date / Time codeine Allergy Shortness Verified 02/02/22 20:01 of Breath Penicillins Allergy Unknown Verified 12/15/21 13:22 red dye Allergy Shortness Verified 02/02/22 20:01 of Breath Home Medications Medication Instructions Recorded Confirmed Last Taken Type Sulfamethoxazole/Trimethoprim 1 each PO DAILY #30 tab 11/08/21 12/16/21 Unknown Rx [Bactrim DS TAB] methylPREDNISolone 64 mg PO QDAY #60 tab 11/08/21 12/16/21 Unknown Rx Budesonide/Formoterol Fumarate 10.2 gm IH BID #1 12/18/21 Unknown Rx [Symbicort 160-4.5 Mcg Inhaler] Famotidine [Pepcid] 20 mg PO BID 30 Days #60 tablet 12/18/21 Unknown Rx Furosemide [Lasix TAB] 40 mg PO QDAY #30 tablet 12/18/21 Unknown Rx Spironolactone [Aldactone] 25 mg PO QDAY 30 Days #30 tablet 12/18/21 Unknown Rx diazePAM TAB [Valium] 5 mg PO Q8H PRN tablet 12/18/21 Unknown Rx oxyCODONE /ACETAMINOPHEN [Percocet 1 tab PO Q6H PRN #12 tablet 12/18/21 Unknown Rx 5/325 mg] Active Meds: Active Medications Acetaminophen (Acetaminophen 325 Mg Tab) 650 mg PO Q4H PRN PRN Reason: Pain MILD(1-3)/Fever >100.5/WONG Dextrose (Dextrose 50% In Water (25gm) 50 Ml Syringe) 50 ml IV Q30MIN PRN; Protocol PRN Reason: Hypoglycemia Heparin Sodium (Porcine) (Heparin 5,000 Unit/1 Ml Vial) 5,000 unit SUB-Q Q8HR LEISA Sodium Chloride (Nacl 0.9% 1000 Ml) 1,000 mls @ 125 mls/hr IV DIRECT LEISA Ceftriaxone Sodium (Rocephin/Ns 2 Gm/100 Ml) 2 gm in 100 mls @ 200 mls/hr IV Q24H LEISA; Protocol Azithromycin (Zithromax/Ns) 500 mg in 250 mls @ 250 mls/hr IV Q24H LEISA; Protocol Ibuprofen (Ibuprofen 600 Mg Tab) 600 mg PO Q6H PRN PRN Reason: Pain, Mild (1-3) Insulin Human Lispro (Insulin Lispro 100 Unit/Ml) 0 unit SUB-Q ACHS LEISA; Protocol Magnesium Hydroxide (Magnesium Hydroxide (Mom) Oral Liqd Udc) 30 ml PO Q4H PRN PRN Reason: Constipation Morphine Sulfate (Morphine 2 Mg/1 Ml Inj) 2 mg IV Q4H PRN PRN Reason: Pain, Moderate (4-6) Morphine Sulfate (Morphine 4 Mg/1 Ml Inj) 4 mg IV Q4H PRN PRN Reason: Pain , Severe (7-10) Ondansetron HCl (Ondansetron 4 Mg/2 Ml Inj) 4 mg IV Q8H PRN PRN Reason: Nausea And Vomiting Oxycodone/Acetaminophen (Oxycodone /Acetaminophen 5-325mg Tab) 1 tab PO Q6H PRN PRN Reason: Pain, Moderate (4-6) Sodium Chloride (Sodium Chloride 0.9% 10 Ml Flush Syringe) 10 ml IV BID LEISA Sodium Chloride (Sodium Chloride 0.9% 10 Ml Flush Syringe) 10 ml IV PRN PRN PRN Reason: LINE FLUSH Review of Systems Constitutional: fever, chills Ears, nose, mouth and throat: no nasal congestion, no sore throat Cardiovascular: no chest pain, no palpitations Respiratory: cough, shortness of breath Gastrointestinal: no abdominal pain, no nausea, no vomiting, no diarrhea Genitourinary Female: no flank pain, no dysuria, no hematuria Musculoskeletal: no neck pain, no low back pain Integumentary: no rash, no pruritis Neurological: no headaches, no confusion Psychiatric: no anxiety, no depression Endocrine: no polyphagia, no polydipsia, no polyuria, no nocturia Exam - Constitutional Vitals: Temp Pulse Resp BP Pulse Ox 97.9 F 149 H 25 H 110/72 98 02/02/22 19:18 02/02/22 20:06 02/02/22 20:06 02/02/22 19:18 02/02/22 20:06 General appearance: Present: mild distress (On BIPAP), well-nourished, obese - EENT Eyes: Present: PERRL, EOM intact. Absent: scleral icterus ENT: hearing intact, clear oral mucosa, dentition normal - Neck Neck: Present: supple, normal ROM - Respiratory Respiratory effort: normal Respiratory: bilateral: rales - Cardiovascular Rhythm: regular Heart Sounds: Present: S1 & S2. Absent: gallop, systolic murmur, diastolic murmur - Extremities Extremities: no ischemia, pulses intact, pulses symmetrical, No edema, normal temperature, normal color, Full ROM Peripheral Pulses: within normal limits - Abdominal General gastrointestinal: Present: soft, non-tender, non-distended, normal bowel sounds. Absent: mass - Integumentary Integumentary: Present: clear, warm, dry, normal turgor. Absent: rash - Musculoskeletal Musculoskeletal: strength equal bilaterally - Psychiatric Psychiatric: appropriate mood/affect, intact judgment & insight, memory intact, cooperative - Neurologic Neurologic: CNII-XII intact, no focal deficits, moves all extremities HEART Score - HEART Score Troponin: Troponin T < 0.010 ng/mL (0.00-0.029) 02/02/22 20:36 Results - Labs CBC & Chem 7: 02/02/22 20:36 09/15/22 05:39 Labs: Abnormal lab results 02/02/22 02/02/22 02/02/22 Range/Units 20:36 20:36 22:25 WBC 13.6 H (4.5-11.0) K/mm3 RDW 16.7 H (13.2-15.2) % Seg Neuts % (Manual) 75.0 H (40.0-70.0) % Lymphocytes % (Manual) 10.0 L (13.4-35.0) % Monocytes % (Manual) 10.0 H (0.0-7.3) % Seg Neutrophils # Man 10.2 H (1.8-7.7) K/mm3 Monocytes # (Manual) 1.4 H (0.0-0.8) K/mm3 ABG pH 7.452 H (7.350-7.450) pH Units ABG pO2 129.2 H (80.0-90.0) mm Hg Glucose 145 H (65-100) mg/dL Assessment and Plan Assessment: 1.Acute Hypoxic Respiratory Failure- Currently on BIPAP 2.Pneumonia 3.Sepsis 4.Diabetes Mellitus 5.H/O CHF Plan: 1.Patient placed on empiric IV antibiotics. 2.Await culture results 3.Placed on sliding scale insulin. Monitor accuchekx closely 4.Will Oxygen saturation greater than 92% . 5.Resume routine home medications. DVT Prophylaxis:SQ Heparin Code Status: Full Code
[2022-02-03] MEDS: cefTRIAXone/NS 2 GM/100 ML 2 GM/100 ML BAG IV SCH ×2 (01:01→23:11)
[2022-02-03] MEDS: AZITHROMYCIN/NS 500 MG/250 ML 500 MG/250 ML BAG IV SCH ×2 (02:12→23:10)
[2022-02-03] MEDS: HEPARIN 5,000 UNIT/1 ML VIAL SUB-Q SCH ×3 (05:48→23:10)
[2022-02-03 06:42] LABS: BUN/Creatinine Ratio 13; Blood Urea Nitrogen 10 mg/dL (7-17); Hemolysis Index 73
[2022-02-03] MEDS: INSULIN LISPRO 100 UNIT/ML SUB-Q SCH ×4 (10:50→23:10)
[2022-02-03] MEDS: guaiFENesin DM 200/20 MG ORAL LIQD 10 ML PO PRN ×2 (10:50→19:04)
--- NOTE | 2022-02-03 11:45 | Consultation ---
History of Present Illness Consult date: 02/03/22 Requesting physician: NANCY DIALLO Reason for consult: hypoxemia, abnormal CXR/CT History of present illness: 71 y/o female, obese, known to me from a prior hospital admit here admitted with acute on chronic respiratory failure. Patient has been hospitalized monthly since moving to [place] from [place] several months ago. She has had CT's here and at [place], that to me, are not consistent with typical IF. She has an elevated RF and now an elevated anti ccp so she carries a diagnosis of RA. It appears she is seeing [facility] and is still following with [facility]. Per the consult note from Rheum on 01/11, the patient knew she had RA from several years back. They referred her back to Pulm on Prednisone 20 daily and per pulm note, she had begun the authorization paper work for OFEV. Today in the ED she is tachypnic and hypoxic and tachycardic. Just recently weaned from bipap, now on HFNC. COVID test is pending but patient has been COVID positive in the [place] system 3 consecutive months in a row. Past History Past Medical History: COPD, diabetes, heart failure, hypertension, other (Rheumatoid arthritis, ILD) Past Surgical History: cholecystectomy Social history: no significant social history Family history: no significant family history Medications and Allergies Allergies Allergy/AdvReac Type Severity Reaction Status Date / Time codeine Allergy Shortness Verified 02/02/22 20:01 of Breath Penicillins Allergy Unknown Verified 12/15/21 13:22 red dye Allergy Shortness Verified 02/02/22 20:01 of Breath Home Medications Medication Instructions Recorded Confirmed Last Taken Type Sulfamethoxazole/Trimethoprim 1 each PO DAILY #30 tab 11/08/21 12/16/21 Unknown Rx [Bactrim DS TAB] methylPREDNISolone 64 mg PO QDAY #60 tab 11/08/21 12/16/21 Unknown Rx Budesonide/Formoterol Fumarate 10.2 gm IH BID #1 12/18/21 Unknown Rx [Symbicort 160-4.5 Mcg Inhaler] Famotidine [Pepcid] 20 mg PO BID 30 Days #60 tablet 12/18/21 Unknown Rx Furosemide [Lasix TAB] 40 mg PO QDAY #30 tablet 12/18/21 Unknown Rx Spironolactone [Aldactone] 25 mg PO QDAY 30 Days #30 tablet 12/18/21 Unknown Rx diazePAM TAB [Valium] 5 mg PO Q8H PRN tablet 12/18/21 Unknown Rx oxyCODONE /ACETAMINOPHEN [Percocet 1 tab PO Q6H PRN #12 tablet 12/18/21 Unknown Rx 5/325 mg] Active Meds: Active Medications Acetaminophen (Acetaminophen 325 Mg Tab) 650 mg PO Q4H PRN PRN Reason: Pain MILD(1-3)/Fever >100.5/WONG Dextrose (Dextrose 50% In Water (25gm) 50 Ml Syringe) 50 ml IV Q30MIN PRN; Protocol PRN Reason: Hypoglycemia Guaifenesin (Guaifenesin Dm 200/20 Mg Oral Liqd 10 Ml) 10 ml PO Q4H PRN PRN Reason: Cough Last Admin: 02/03/22 10:50 Dose: 10 ml Heparin Sodium (Porcine) (Heparin 5,000 Unit/1 Ml Vial) 5,000 unit SUB-Q Q8HR LEISA Last Admin: 02/03/22 05:48 Dose: 5,000 unit Sodium Chloride (Nacl 0.9% 1000 Ml) 1,000 mls @ 125 mls/hr IV DIRECT LEISA Last Admin: 02/03/22 10:51 Dose: 125 mls/hr Ceftriaxone Sodium (Rocephin/Ns 2 Gm/100 Ml) 2 gm in 100 mls @ 200 mls/hr IV Q24H LEISA; Protocol Last Admin: 02/03/22 01:01 Dose: 200 mls/hr Azithromycin (Zithromax/Ns) 500 mg in 250 mls @ 250 mls/hr IV Q24H LEISA; Protocol Last Admin: 02/03/22 02:12 Dose: 250 mls/hr Insulin Human Lispro (Insulin Lispro 100 Unit/Ml) 0 unit SUB-Q ACHS LEISA; Protocol Last Admin: 02/03/22 10:50 Dose: Not Given Magnesium Hydroxide (Magnesium Hydroxide (Mom) Oral Liqd Udc) 30 ml PO Q4H PRN PRN Reason: Constipation Methylprednisolone Sodium Succinate (Methylprednisolone Sod Succinate 125 Mg/2 Ml Inj) 60 mg IV Q6HR LEISA Morphine Sulfate (Morphine 2 Mg/1 Ml Inj) 2 mg IV Q4H PRN PRN Reason: Pain, Moderate (4-6) Morphine Sulfate (Morphine 4 Mg/1 Ml Inj) 4 mg IV Q4H PRN PRN Reason: Pain , Severe (7-10) Last Admin: 02/03/22 10:15 Dose: 4 mg Ondansetron HCl (Ondansetron 4 Mg/2 Ml Inj) 4 mg IV Q8H PRN PRN Reason: Nausea And Vomiting Oxycodone/Acetaminophen (Oxycodone /Acetaminophen 5-325mg Tab) 1 tab PO Q6H PRN PRN Reason: Pain, Moderate (4-6) Sodium Chloride (Sodium Chloride 0.9% 10 Ml Flush Syringe) 10 ml IV BID LEISA Last Admin: 02/03/22 10:50 Dose: 10 ml Sodium Chloride (Sodium Chloride 0.9% 10 Ml Flush Syringe) 10 ml IV PRN PRN PRN Reason: LINE FLUSH Review of Systems All systems: negative Physical Examination Vital signs: Vital Signs Temp Pulse Resp BP Pulse Ox 101.0 F H 151 H 27 H 143/97 95 02/02/22 19:15 02/02/22 19:15 02/02/22 19:15 02/02/22 19:15 02/02/22 19:15 Deferred until COVID screen returns as I did not have an N95 Results - Laboratory Findings CBC and BMP: 02/02/22 20:36 02/03/22 05:39 ABG ABG pH 7.452 pH Units (7.350-7.450) H 02/02/22 22:25 ABG pCO2 36.5 mm Hg 02/02/22 22:25 ABG pO2 129.2 mm Hg (80.0-90.0) H 02/02/22 22:25 ABG O2 Saturation 98.6 % (95.0-99.0) 02/02/22 22:25 Abnormal lab findings: Abnormal Labs 02/02/22 02/02/22 02/02/22 20:36 20:36 22:25 WBC 13.6 H RDW 16.7 H Seg Neuts % (Manual) 75.0 H Lymphocytes % (Manual) 10.0 L Monocytes % (Manual) 10.0 H Seg Neutrophils # Man 10.2 H Monocytes # (Manual) 1.4 H ABG pH 7.452 H ABG pO2 129.2 H Glucose 145 H 02/03/22 05:39 WBC RDW Seg Neuts % (Manual) Lymphocytes % (Manual) Monocytes % (Manual) Seg Neutrophils # Man Monocytes # (Manual) ABG pH ABG pO2 Glucose 121 H - Diagnostic Findings Chest x-ray: image reviewed Assessment and Plan 71 y/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 1. Unable to find PFT's to support COPD diagnosis but apparently patient is a former smoker. Will place on BID Pulmicort and Brovana therapy as she is on Symbicort as an outpatient. 2. Will start High dose IV steroids as she responded well to this last time. 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 Rheum at [place] is following. She needs therapy for her RA that should help with her ILD. Pulm at [place] planning to start patient OFEV 3. Wean FiO2 for sats > 88% 4. If patient is producing sputum please send for cytology for PCP pneumonia. She is suppose to be on prophylactic therapy but could not tell me if she has been taking the medication or not. Will check LDH. To unstable for bronch at this time 5. Follow up COVID 6. Guarded Prognosis.
--- NOTE | 2022-02-03 14:16 | Progress Note ---
Assessment and Plan Assessment and plan: 71-year-old Haitian female with known history of CHF, diabetes mellitus, hypertension and COPD presenting to the emergency room today complaining of shortness of breath which has been ongoing for the past 2 days. Patient has also had some mild fever and chills at home. She denies any sick contacts and no recent travel. Denies any contact with anyone with COVID-19. Patient is vaccinated against COVID-19 however she has not received a booster shot. Patient denies any chest pain. Denies any headache or dizziness and denies any diaphoresis. Upon arrival in the emergency room patient was found to be tachycardic and hypoxic with O2 saturation of about 80%. She was initially on nonrebreather and subsequently placed on the BiPAP. Work-up in the emergency room today, lab reveals leukocytosis of 13. BNP of 34. All other labs were essentially within normal limits. Chest x-ray however reveals: Increased airspace opacities bilaterally in the lower lobes concerning for multifocal pneumonia. Patient has been commenced on empiric IV antibiotics. Past History Past Medical History: COPD, diabetes, heart failure, hypertension, other (H/O Asthma) Past Surgical History: cholecystectomy Social history: no significant social history Family history: no significant family history 02/03: Patient seen and examined chest x-ray reviewed, agree as noted above. 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 Has had multiple hospitalization for which compensation consultant has recommended long-acting steroid taper and also a biopsy in the past. With a new diagnosis of RA most likely no biopsy will be needed. Nevertheless will refer to outpatient compensation consultant which the patient follows with [facility] team. We will send sputum for cytology for PCP pneumonia. We will try to obtain all home medication to see if she is on prophylactic PCP therapy. Continue steroids as ordered by compensation consultant and also BID Pulmicort and Brovana therapy. We will trial some diuresis and also consult cardiology to assist with management. 1.Acute Hypoxic Respiratory Failure- Currently on BIPAP 2.possible ILD 3.Sepsis 4.Diabetes Mellitus 5.RA 6. Possible acute on chronic diastolic congestive heart failure. Plan: 1.Patient placed on empiric IV antibiotics. 2.Await culture results 3.Placed on sliding scale insulin. Monitor accuchekx closely 4.Will Oxygen saturation greater than 92% . 5.Resume routine home medications. DVT Prophylaxis:SQ Heparin Code Status: Full Code The high probability of a clinically significant, sudden or life threatening deterioration of the [] system(s) required my full and direct attention, intervention and personal management. The aggregate critical care time was [60] minutes. This time is in addition to time spent performing reported procedures but includes the following: [x] Data Review and interpretation [x] Patient assessment and monitoring of vital signs [x] Documentation [x] Medication orders and management History Interval history: Patient seen and examined still in acute respiratory distress. Denies any chest pain nausea vomiting or diarrhea at this time. Hospitalist Physical - Physical exam Narrative exam: General appearance: Present: mild distress (On BIPAP), well-nourished, morbid obese - EENT Eyes: Present: PERRL, EOM intact. Absent: scleral icterus ENT: hearing intact, clear oral mucosa, dentition normal - Neck Neck: Present: supple, normal ROM - Respiratory Respiratory effort: Increased work of breathing improved. No accessory muscle use Respiratory: bilateral: rales - Cardiovascular Rhythm: regular Heart Sounds: Present: S1 & S2. Absent: gallop, systolic murmur, diastolic murmur - Extremities Extremities: no ischemia, pulses intact, pulses symmetrical, No edema, normal temperature, normal color, Full ROM Peripheral Pulses: within normal limits - Abdominal General gastrointestinal: Present: soft, non-tender, non-distended, normal bowel sounds. Absent: mass - Integumentary Integumentary: Present: clear, warm, dry, normal turgor. Absent: rash - Musculoskeletal Musculoskeletal: strength equal bilaterally - Psychiatric Psychiatric: appropriate mood/affect, intact judgment & insight, memory intact, cooperative - Neurologic Neurologic: CNII-XII intact, no focal deficits, moves all extremities - Constitutional Vitals: Temp Pulse Resp BP Pulse Ox 98.9 F 122 H 37 H 84/33 94 02/03/22 06:05 02/03/22 10:45 02/03/22 10:45 02/03/22 10:45 02/03/22 11:03 General appearance: Present: mild distress (On BIPAP), well-nourished, obese HEART Score - HEART Score Troponin: Troponin T < 0.010 ng/mL (0.00-0.029) 02/02/22 20:36 Results - Labs CBC & Chem 7: 09/14/22 20:36 02/03/22 05:39 Labs: Laboratory Last Values WBC 13.6 K/mm3 (4.5-11.0) H 02/02/22 20:36 RBC 4.44 M/mm3 (3.65-5.03) 02/02/22 20:36 Hgb 12.5 gm/dl (10.1-14.3) 02/02/22 20:36 Hct 38.7 % (30.3-42.9) 02/02/22 20:36 MCV 87 fl (79-97) 02/02/22 20:36 MCH 28 pg (28-32) 02/02/22 20:36 MCHC 32 % (30-34) 02/02/22 20:36 RDW 16.7 % (13.2-15.2) H 02/02/22 20:36 Plt Count 271 K/mm3 (140-440) 02/02/22 20:36 Add Manual Diff Complete 02/02/22 20:36 Total Counted 100 02/02/22 20:36 Seg Neuts % (Manual) 75.0 % (40.0-70.0) H 02/02/22 20:36 Band Neutrophils % 4.0 % 02/02/22 20:36 Lymphocytes % (Manual) 10.0 % (13.4-35.0) L 02/02/22 20:36 Reactive Lymphs % (Man) 0 % 02/02/22 20:36 Monocytes % (Manual) 10.0 % (0.0-7.3) H 02/02/22 20:36 Eosinophils % (Manual) 1.0 % (0.0-4.3) 02/02/22 20:36 Basophils % (Manual) 0 % (0.0-1.8) 02/02/22 20:36 Metamyelocytes % 0 % 02/02/22 20:36 Myelocytes % 0 % 02/02/22 20:36 Promyelocytes % 0 % 02/02/22 20:36 Blast Cells % 0 % 02/02/22 20:36 Nucleated RBC % Not Reportable 02/02/22 20:36 Seg Neutrophils # Man 10.2 K/mm3 (1.8-7.7) H 02/02/22 20:36 Band Neutrophils # 0.5 K/mm3 02/02/22 20:36 Lymphocytes # (Manual) 1.4 K/mm3 (1.2-5.4) 02/02/22 20:36 Abs React Lymphs (Man) 0.0 K/mm3 02/02/22 20:36 Monocytes # (Manual) 1.4 K/mm3 (0.0-0.8) H 02/02/22 20:36 Eosinophils # (Manual) 0.1 K/mm3 (0.0-0.4) 02/02/22 20:36 Basophils # (Manual) 0.0 K/mm3 (0.0-0.1) 02/02/22 20:36 Metamyelocytes # 0.0 K/mm3 02/02/22 20:36 Myelocytes # 0.0 K/mm3 02/02/22 20:36 Promyelocytes # 0.0 K/mm3 02/02/22 20:36 Blast Cells # 0.0 K/mm3 02/02/22 20:36 WBC Morphology Not Reportable 02/02/22 20:36 Hypersegmented Neuts Not Reportable 02/02/22 20:36 Hyposegmented Neuts Not Reportable 02/02/22 20:36 Hypogranular Neuts Not Reportable 02/02/22 20:36 Smudge Cells Not Reportable 02/02/22 20:36 Toxic Granulation Not Reportable 02/02/22 20:36 Toxic Vacuolation Not Reportable 02/02/22 20:36 Dohle Bodies Not Reportable 02/02/22 20:36 Pelger-Huet Anomaly Not Reportable 02/02/22 20:36 Kelli Rods Not Reportable 02/02/22 20:36 Platelet Estimate Consistent w auto 02/02/22 20:36 Clumped Platelets Not Reportable 02/02/22 20:36 Plt Clumps, EDTA Not Reportable 02/02/22 20:36 Large Platelets Not Reportable 02/02/22 20:36 Giant Platelets Not Reportable 02/02/22 20:36 Platelet Satelliting Not Reportable 02/02/22 20:36 Plt Morphology Comment Not Reportable 02/02/22 20:36 RBC Morphology Not Reportable 02/02/22 20:36 Dimorphic RBCs Not Reportable 02/02/22 20:36 Polychromasia Not Reportable 02/02/22 20:36 Hypochromasia Not Reportable 02/02/22 20:36 Poikilocytosis Not Reportable 02/02/22 20:36 Anisocytosis 1+ 02/02/22 20:36 Microcytosis Few 02/02/22 20:36 Macrocytosis Not Reportable 02/02/22 20:36 Spherocytes Not Reportable 02/02/22 20:36 Pappenheimer Bodies Not Reportable 02/02/22 20:36 Sickle Cells Not Reportable 02/02/22 20:36 Target Cells Not Reportable 02/02/22 20:36 Tear Drop Cells Not Reportable 02/02/22 20:36 Ovalocytes Not Reportable 02/02/22 20:36 Helmet Cells Not Reportable 02/02/22 20:36 [place] Bodies Not Reportable 02/02/22 20:36 [place] Rings Not Reportable 02/02/22 20:36 Ariela Cells Not Reportable 02/02/22 20:36 Bite Cells Not Reportable 02/02/22 20:36 Crenated Cell Not Reportable 02/02/22 20:36 Elliptocytes Not Reportable 02/02/22 20:36 Acanthocytes (Spur) Not Reportable 02/02/22 20:36 Rouleaux Not Reportable 02/02/22 20:36 Hemoglobin C Crystals Not Reportable 02/02/22 20:36 Schistocytes Not Reportable 02/02/22 20:36 Malaria parasites Not Reportable 02/02/22 20:36 Pedro Bodies Not Reportable 02/02/22 20:36 Hem Pathologist Commnt No 02/02/22 20:36 ABG pH 7.452 pH Units (7.350-7.450) H 02/02/22 22:25 ABG pCO2 36.5 mm Hg 02/02/22 22:25 ABG pO2 129.2 mm Hg (80.0-90.0) H 02/02/22 22:25 ABG HCO3 25.0 mmol/L (20.0-26.0) 02/02/22 22:25 ABG O2 Saturation 98.6 % (95.0-99.0) 02/02/22 22:25 ABG O2 Content 16.6 (0.0-44) 02/02/22 22:25 ABG Base Excess 1.2 mmol/L (-2.0-3.0) 02/02/22 22:25 ABG Hemoglobin 12.0 gm/dl (12.0-16.0) 02/02/22 22:25 ABG Carboxyhemoglobin 1.0 % (0.0-5.0) 02/02/22 22:25 ABG Methemoglobin 0.5 % (0.0-1.5) 02/02/22 22:25 Oxyhemoglobin 97.1 % (95.0-99.0) 02/02/22 22:25 FiO2 50 % 02/02/22 22:25 Sodium 138 mmol/L (137-145) 02/03/22 05:39 Potassium 4.5 mmol/L (3.6-5.0) 02/03/22 05:39 Chloride 100.1 mmol/L (98-107) 02/03/22 05:39 Carbon Dioxide 24 mmol/L (22-30) 02/03/22 05:39 Anion Gap 18 mmol/L 02/03/22 05:39 BUN 10 mg/dL (7-17) 02/03/22 05:39 Creatinine 0.8 mg/dL (0.6-1.2) 02/03/22 05:39 Estimated GFR > 60 ml/min 02/03/22 05:39 BUN/Creatinine Ratio 13 % 02/03/22 05:39 Glucose 121 mg/dL (65-100) H 02/03/22 05:39 POC Glucose 120 mg/dL (70-105) H 02/03/22 10:40 Lactic Acid 1.60 mmol/L (0.7-2.0) 02/02/22 21:35 Calcium 9.0 mg/dL (8.4-10.2) 02/03/22 05:39 Magnesium 1.70 mg/dL (1.7-2.3) 02/02/22 20:36 Total Bilirubin 0.50 mg/dL (0.1-1.2) 02/02/22 20:36 AST 25 units/L (5-40) 02/02/22 20:36 ALT 23 units/L (7-56) 02/02/22 20:36 Alkaline Phosphatase 70 units/L (35-129) 02/02/22 20:36 Troponin T < 0.010 ng/mL (0.00-0.029) 02/02/22 20:36 NT-Pro-B Natriuret Pep 34.27 pg/mL (0-900) 02/02/22 20:36 Total Protein 6.5 g/dL (6.3-8.2) 02/02/22 20:36 Albumin 4.0 g/dL (3.9-5) 02/02/22 20:36 Albumin/Globulin Ratio 1.6 % 02/02/22 20:36 Microbiology: Microbiology 02/02/22 21:35 Peripheral/Venous Blood Culture - Preliminary Culture in Progress 02/02/22 21:35 Peripheral/Venous Blood Culture - Preliminary Culture in Progress Active Medications - Current Medications Current Medications: Generic Name Dose Route Start Last Admin Trade Name Freq PRN Reason Stop Dose Admin Acetaminophen 650 mg 02/02/22 23:25 Acetaminophen 325 Mg Tab PO Q4H PRN Pain MILD(1-3)/Fever >100.5/WONG Budesonide 0.5 mg 02/03/22 20:00 Budesonide 0.5 Mg/2 Ml Nebu IH Q12HRT LEISA Dextrose 50 ml 02/02/22 23:25 Dextrose 50% In Water (25gm) 50 Ml Syringe IV Q30MIN PRN Hypoglycemia Protocol Guaifenesin 10 ml 02/03/22 10:36 02/03/22 10:50 Guaifenesin Dm 200/20 Mg Oral Liqd 10 Ml PO 10 ml Q4H PRN Administration Cough Heparin Sodium (Porcine) 5,000 unit 02/03/22 06:00 02/03/22 05:48 Heparin 5,000 Unit/1 Ml Vial SUB-Q 5,000 unit Q8HR LEISA Administration Sodium Chloride 1,000 mls @ 125 mls/hr 02/02/22 23:30 02/03/22 10:51 Nacl 0.9% 1000 Ml IV 125 mls/hr DIRECT LEISA Administration Ceftriaxone Sodium 2 gm in 100 mls @ 200 mls/hr 02/02/22 23:45 02/03/22 01:01 Rocephin/Ns 2 Gm/100 Ml IV 200 mls/hr Q24H LEISA Administration Protocol Azithromycin 500 mg in 250 mls @ 250 mls/hr 02/02/22 23:45 02/03/22 02:12 Zithromax/Ns IV 250 mls/hr Q24H LEISA Administration Protocol Insulin Human Lispro 0 unit 02/03/22 07:30 02/03/22 10:50 Insulin Lispro 100 Unit/Ml SUB-Q Not Given ACHS [facility] Protocol Magnesium Hydroxide 30 ml 02/02/22 23:25 Magnesium Hydroxide (Mom) Oral Liqd Udc PO Q4H PRN Constipation Methylprednisolone Sodium Succinate 60 mg 02/03/22 12:00 Methylprednisolone Sod Succinate 125 Mg/2 Ml Inj IV Q6HR LEISA Morphine Sulfate 2 mg 02/02/22 23:25 Morphine 2 Mg/1 Ml Inj IV Q4H PRN Pain, Moderate (4-6) Ondansetron HCl 4 mg 02/02/22 23:25 Ondansetron 4 Mg/2 Ml Inj IV Q8H PRN Nausea And Vomiting Oxycodone/Acetaminophen 1 tab 02/02/22 23:09 Oxycodone /Acetaminophen 5-325mg Tab PO Q6H PRN Pain, Moderate (4-6) Sodium Chloride 10 ml 02/03/22 10:00 02/03/22 10:50 Sodium Chloride 0.9% 10 Ml Flush Syringe IV 10 ml BID LEISA Administration Sodium Chloride 10 ml 02/02/22 23:25 Sodium Chloride 0.9% 10 Ml Flush Syringe IV PRN PRN LINE FLUSH Nutrition/Malnutrition Assess - Dietary Evaluation Nutrition/Malnutrition Findings: Nutrition Notes Start: 02/03/22 11:29 Freq: Status: Active Protocol: Document 02/03/22 11:29 SHALOM (Rec: 02/03/22 11:38 SHALOM [id number]) Nutrition Notes Need for Assessment generated from: MD Order,Education Initial or Follow up Brief Note Current Diagnosis COPD,Diabetes,Sepsis, Hypertension,Respiratory Failure Other Pertinent Diagnosis CHF, Tachycardia, Pneumonia. Current Diet Cardiac/Consistent Carbohydrates Diet (since B ). Height 5 ft 10 in Weight 136.078 kg [place] Body Weight (kg) 68.18 BMI 43.0 Weight change and time frame None provided at admission. Weight Status Morbidly Obese Subjective/Other Information RD consult for nutrition education assessment. No reports available on Pt's PO intake of meals at the time , will assess at F/U. Pr is on a Non-Rebreather+, O2 saturation @ 95%, according to Physical Assessment History notes. Pt still in critical condition , not a candidate for Nutrition Education at the time, will assess feasibility on F/U. Percent of energy/protein needs met: Prescribed Cardiac/Consistent Carbohydrates Diet provides for energy/protein needs (1, 977 Kcal/86 g) during LOS. Nutrition Intervention Follow-Up By: 02/10/22 Additional Comments Nutrition education will be provided at F/U, if feasible. Continue monitoring food tolerance, %PO intake of meals , and BM.
[2022-02-03] MEDS ORDERED: FUROSEMIDE 40 MG/4 ML INJ IV SCH (15:00)
[2022-02-03] MEDS: FUROSEMIDE 40 MG/4 ML INJ IV SCH (17:02)
[2022-02-03] MEDS: methylPREDNISolone Sod Succinate 125 MG/2 ML INJ IV SCH ×3 (17:03→23:11)
[2022-02-03] MEDS: oxyCODONE /ACETAMINOPHEN 5-325MG TAB PO PRN (19:05)
[2022-02-03] MEDS ORDERED: BUDESONIDE 0.5 MG/2 ML NEBU IH SCH (20:00)
[2022-02-03] MEDS: ACETAMINOPHEN 325 MG TAB PO PRN (22:45)
[2022-02-04] MEDS: oxyCODONE /ACETAMINOPHEN 5-325MG TAB PO PRN ×2 (05:00→23:42)
[2022-02-04 05:49] LABS: Hematocrit 34.6 % (30.3-42.9); Hemoglobin 11.2 gm/dl (10.1-14.3); Mean Corpuscular HGB Conc 33 % (30-34); Mean Corpuscular Volume 87 fl (79-97); Platelet Count 236 K/mm3 (140-440); Red Cell Distribution Width 16.3 % (13.2-15.2)
[2022-02-04 06:04] LABS: BUN/Creatinine Ratio 16; Blood Urea Nitrogen 13 mg/dL (7-17); Calcium 8.2 mg/dL (8.4-10.2); Hemolysis Index 17
[2022-02-04] MEDS ORDERED: diazePAM 5 MG TAB PO ONE (06:21)
[2022-02-04] MEDS: HEPARIN 5,000 UNIT/1 ML VIAL SUB-Q SCH ×3 (06:50→21:08)
[2022-02-04] MEDS: methylPREDNISolone Sod Succinate 125 MG/2 ML INJ IV SCH ×4 (06:50→23:40)
[2022-02-04] MEDS: BUDESONIDE 0.5 MG/2 ML NEBU IH SCH ×2 (08:27→19:59)
[2022-02-04] MEDS: INSULIN LISPRO 100 UNIT/ML SUB-Q SCH ×4 (09:50→22:08)
--- NOTE | 2022-02-04 12:40 | Progress Note ---
Assessment and Plan Assessment and plan: 71-year-old Spanish female with known history of CHF, diabetes mellitus, hypertension and COPD presenting to the emergency room today complaining of shortness of breath which has been ongoing for the past 2 days. Patient has also had some mild fever and chills at home. She denies any sick contacts and no recent travel. Denies any contact with anyone with COVID-19. Patient is vaccinated against COVID-19 however she has not received a booster shot. Patient denies any chest pain. Denies any headache or dizziness and denies any diaphoresis. Upon arrival in the emergency room patient was found to be tachycardic and hypoxic with O2 saturation of about 80%. She was initially on nonrebreather and subsequently placed on the BiPAP. Work-up in the emergency room today, lab reveals leukocytosis of 13. BNP of 34. All other labs were essentially within normal limits. Chest x-ray however reveals: Increased airspace opacities bilaterally in the lower lobes concerning for multifocal pneumonia. Patient has been commenced on empiric IV antibiotics. Past History Past Medical History: COPD, diabetes, heart failure, hypertension, other (H/O Asthma) Past Surgical History: cholecystectomy Social history: no significant social history Family history: no significant family history 02/03: Patient seen and examined chest x-ray reviewed, agree as noted above. 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 Has had multiple hospitalization for which nuclear plant technical advisor has recommended long-acting steroid taper and also a biopsy in the past. With a new diagnosis of RA most likely no biopsy will be needed. Nevertheless will refer to outpatient nuclear plant technical advisor which the patient follows with [facility] team. We will send sputum for cytology for PCP pneumonia. We will try to obtain all home medication to see if she is on prophylactic PCP therapy. Continue steroids as ordered by nuclear plant technical advisor and also BID Pulmicort and Brovana therapy. We will trial some diuresis and also consult cardiology to assist with management. 02/04: Patient seen and examined, clinically improving. On high flow at 45%. No worsening distress. Ok to transfer to Medical Floor with tele. Continue steroids. 1. Acute Hypoxic Respiratory Failure- Currently on BIPAP 2. possible ILD 3. Sepsis 4. Diabetes Mellitus 5. RA 6. Possible acute on chronic diastolic congestive heart failure. Plan: 1. Patient placed on empiric IV antibiotics. 2. Await culture results 3. Placed on sliding scale insulin. Monitor accuchek closely 4. Will Oxygen saturation greater than 92% . 5. Resume routine home medications. DVT Prophylaxis:SQ Heparin Code Status: Full Code The high probability of a clinically significant, sudden or life threatening deterioration of the [multiple] system(s) required my full and direct attention, intervention and personal management. The aggregate critical care time was [60] minutes. This time is in addition to time spent performing reported procedures but includes the following: [x] Data Review and interpretation [x] Patient assessment and monitoring of vital signs [x] Documentation [x] Medication orders and management History Interval history: Patient seen and examined still in acute respiratory distress. Denies any chest pain nausea vomiting or diarrhea at this time. Hospitalist Physical - Physical exam Narrative exam: General appearance: Present: improving respiratory distress, well-nourished, morbid obese - EENT Eyes: Present: PERRL, EOM intact. Absent: scleral icterus ENT: hearing intact, clear oral mucosa, dentition normal - Neck Neck: Present: supple, normal ROM - Respiratory Respiratory effort: Increased work of breathing improved. No accessory muscle use Respiratory: bilateral: rales - Cardiovascular Rhythm: regular Heart Sounds: Present: S1 & S2. Absent: gallop, systolic murmur, diastolic murmur - Extremities Extremities: no ischemia, pulses intact, pulses symmetrical, No edema, normal temperature, normal color, Full ROM Peripheral Pulses: within normal limits - Abdominal General gastrointestinal: Present: soft, non-tender, non-distended, normal bowel sounds. Absent: mass - Integumentary Integumentary: Present: clear, warm, dry, normal turgor. Absent: rash - Musculoskeletal Musculoskeletal: strength equal bilaterally - Psychiatric Psychiatric: appropriate mood/affect, intact judgment & insight, memory intact, cooperative - Neurologic Neurologic: CNII-XII intact, no focal deficits, moves all extremities - Constitutional Vitals: Temp Pulse Resp BP Pulse Ox 97.9 F 104 H 24 131/53 100 02/04/22 10:00 02/04/22 11:01 02/04/22 11:01 02/04/22 11:01 02/04/22 11:29 General appearance: Present: mild distress (On BIPAP), well-nourished, obese HEART Score - HEART Score Troponin: Troponin T < 0.010 ng/mL (0.00-0.029) 02/02/22 20:36 Results - Labs CBC & Chem 7: 02/04/22 05:02 02/04/22 05:02 Labs: Laboratory Last Values WBC 5.7 K/mm3 (4.5-11.0) 02/04/22 05:02 RBC 4.00 M/mm3 (3.65-5.03) 02/04/22 05:02 Hgb 11.2 gm/dl (10.1-14.3) 02/04/22 05:02 Hct 34.6 % (30.3-42.9) 02/04/22 05:02 MCV 87 fl (79-97) 02/04/22 05:02 MCH 28 pg (28-32) 02/04/22 05:02 MCHC 33 % (30-34) 02/04/22 05:02 RDW 16.3 % (13.2-15.2) H 02/04/22 05:02 Plt Count 236 K/mm3 (140-440) 02/04/22 05:02 Add Manual Diff Complete 02/02/22 20:36 Total Counted 100 02/02/22 20:36 Seg Neuts % (Manual) 75.0 % (40.0-70.0) H 02/02/22 20:36 Band Neutrophils % 4.0 % 02/02/22 20:36 Lymphocytes % (Manual) 10.0 % (13.4-35.0) L 02/02/22 20:36 Reactive Lymphs % (Man) 0 % 02/02/22 20:36 Monocytes % (Manual) 10.0 % (0.0-7.3) H 02/02/22 20:36 Eosinophils % (Manual) 1.0 % (0.0-4.3) 02/02/22 20:36 Basophils % (Manual) 0 % (0.0-1.8) 02/02/22 20:36 Metamyelocytes % 0 % 02/02/22 20:36 Myelocytes % 0 % 02/02/22 20:36 Promyelocytes % 0 % 02/02/22 20:36 Blast Cells % 0 % 02/02/22 20:36 Nucleated RBC % Not Reportable 02/02/22 20:36 Seg Neutrophils # Man 10.2 K/mm3 (1.8-7.7) H 02/02/22 20:36 Band Neutrophils # 0.5 K/mm3 02/02/22 20:36 Lymphocytes # (Manual) 1.4 K/mm3 (1.2-5.4) 02/02/22 20:36 Abs React Lymphs (Man) 0.0 K/mm3 02/02/22 20:36 Monocytes # (Manual) 1.4 K/mm3 (0.0-0.8) H 02/02/22 20:36 Eosinophils # (Manual) 0.1 K/mm3 (0.0-0.4) 02/02/22 20:36 Basophils # (Manual) 0.0 K/mm3 (0.0-0.1) 02/02/22 20:36 Metamyelocytes # 0.0 K/mm3 02/02/22 20:36 Myelocytes # 0.0 K/mm3 02/02/22 20:36 Promyelocytes # 0.0 K/mm3 02/02/22 20:36 Blast Cells # 0.0 K/mm3 02/02/22 20:36 WBC Morphology Not Reportable 02/02/22 20:36 Hypersegmented Neuts Not Reportable 02/02/22 20:36 Hyposegmented Neuts Not Reportable 02/02/22 20:36 Hypogranular Neuts Not Reportable 02/02/22 20:36 Smudge Cells Not Reportable 02/02/22 20:36 Toxic Granulation Not Reportable 02/02/22 20:36 Toxic Vacuolation Not Reportable 02/02/22 20:36 Dohle Bodies Not Reportable 02/02/22 20:36 Pelger-Huet Anomaly Not Reportable 02/02/22 20:36 Kelli Rods Not Reportable 02/02/22 20:36 Platelet Estimate Consistent w auto 02/02/22 20:36 Clumped Platelets Not Reportable 02/02/22 20:36 Plt Clumps, EDTA Not Reportable 02/02/22 20:36 Large Platelets Not Reportable 02/02/22 20:36 Giant Platelets Not Reportable 02/02/22 20:36 Platelet Satelliting Not Reportable 02/02/22 20:36 Plt Morphology Comment Not Reportable 02/02/22 20:36 RBC Morphology Not Reportable 02/02/22 20:36 Dimorphic RBCs Not Reportable 02/02/22 20:36 Polychromasia Not Reportable 02/02/22 20:36 Hypochromasia Not Reportable 02/02/22 20:36 Poikilocytosis Not Reportable 02/02/22 20:36 Anisocytosis 1+ 02/02/22 20:36 Microcytosis Few 02/02/22 20:36 Macrocytosis Not Reportable 02/02/22 20:36 Spherocytes Not Reportable 02/02/22 20:36 Pappenheimer Bodies Not Reportable 02/02/22 20:36 Sickle Cells Not Reportable 02/02/22 20:36 Target Cells Not Reportable 02/02/22 20:36 Tear Drop Cells Not Reportable 02/02/22 20:36 Ovalocytes Not Reportable 02/02/22 20:36 Helmet Cells Not Reportable 02/02/22 20:36 Pendleton-Blanca Bodies Not Reportable 02/02/22 20:36 [place] Rings Not Reportable 02/02/22 20:36 Ariela Cells Not Reportable 02/02/22 20:36 Bite Cells Not Reportable 02/02/22 20:36 Crenated Cell Not Reportable 02/02/22 20:36 Elliptocytes Not Reportable 02/02/22 20:36 Acanthocytes (Spur) Not Reportable 02/02/22 20:36 Rouleaux Not Reportable 02/02/22 20:36 Hemoglobin C Crystals Not Reportable 02/02/22 20:36 Schistocytes Not Reportable 02/02/22 20:36 Malaria parasites Not Reportable 02/02/22 20:36 Pedro Bodies Not Reportable 02/02/22 20:36 Hem Pathologist Commnt No 02/02/22 20:36 ABG pH 7.452 pH Units (7.350-7.450) H 02/02/22 22:25 ABG pCO2 36.5 mm Hg 02/02/22 22:25 ABG pO2 129.2 mm Hg (80.0-90.0) H 02/02/22 22:25 ABG HCO3 25.0 mmol/L (20.0-26.0) 02/02/22 22:25 ABG O2 Saturation 98.6 % (95.0-99.0) 02/02/22 22:25 ABG O2 Content 16.6 (0.0-44) 02/02/22 22:25 ABG Base Excess 1.2 mmol/L (-2.0-3.0) 02/02/22 22:25 ABG Hemoglobin 12.0 gm/dl (12.0-16.0) 02/02/22 22:25 ABG Carboxyhemoglobin 1.0 % (0.0-5.0) 02/02/22 22:25 ABG Methemoglobin 0.5 % (0.0-1.5) 02/02/22 22:25 Oxyhemoglobin 97.1 % (95.0-99.0) 02/02/22 22:25 FiO2 50 % 02/02/22 22:25 Sodium 135 mmol/L (137-145) L 02/04/22 05:02 Potassium 4.4 mmol/L (3.6-5.0) 02/04/22 05:02 Chloride 97.2 mmol/L (98-107) L 02/04/22 05:02 Carbon Dioxide 23 mmol/L (22-30) 02/04/22 05:02 Anion Gap 19 mmol/L 02/04/22 05:02 BUN 13 mg/dL (7-17) 02/04/22 05:02 Creatinine 0.8 mg/dL (0.6-1.2) 02/04/22 05:02 Estimated GFR > 60 ml/min 02/04/22 05:02 BUN/Creatinine Ratio 16 % 02/04/22 05:02 Glucose 249 mg/dL (65-100) H 02/04/22 05:02 POC Glucose 274 mg/dL (70-105) H 02/04/22 08:50 Lactic Acid 1.60 mmol/L (0.7-2.0) 02/02/22 21:35 Calcium 8.2 mg/dL (8.4-10.2) L 02/04/22 05:02 Magnesium 1.70 mg/dL (1.7-2.3) 02/02/22 20:36 Total Bilirubin 0.50 mg/dL (0.1-1.2) 02/02/22 20:36 AST 25 units/L (5-40) 02/02/22 20:36 ALT 23 units/L (7-56) 02/02/22 20:36 Alkaline Phosphatase 70 units/L (35-129) 02/02/22 20:36 Lactate Dehydrogenase 516 units/L (91-180) H 02/03/22 21:25 Troponin T < 0.010 ng/mL (0.00-0.029) 02/02/22 20:36 NT-Pro-B Natriuret Pep 34.27 pg/mL (0-900) 02/02/22 20:36 Total Protein 6.5 g/dL (6.3-8.2) 02/02/22 20:36 Albumin 4.0 g/dL (3.9-5) 02/02/22 20:36 Albumin/Globulin Ratio 1.6 % 02/02/22 20:36 Coronavirus (PCR) Negative (Negative) 02/03/22 Unknown Microbiology: Microbiology 02/02/22 21:35 Peripheral/Venous Blood Culture - Preliminary NO GROWTH AFTER 24 HOURS 02/02/22 21:35 Peripheral/Venous Blood Culture - Preliminary NO GROWTH AFTER 24 HOURS [place]/IV: Voiding Method External Female Catheter Active Medications - Current Medications Current Medications: Generic Name Dose Route Start Last Admin Trade Name Freq PRN Reason Stop Dose Admin Acetaminophen 650 mg 02/02/22 23:25 02/03/22 22:45 Acetaminophen 325 Mg Tab PO 650 mg Q4H PRN Administration Pain MILD(1-3)/Fever >100.5/WONG Azithromycin 500 mg 02/04/22 21:00 Azithromycin 250 Mg Tab PO 02/06/22 21:01 Q24H LEISA Budesonide 0.5 mg 02/04/22 08:00 02/04/22 08:27 Budesonide 0.5 Mg/2 Ml Nebu IH 0.5 mg Q12HRT LEISA Administration Dextrose 50 ml 02/02/22 23:25 Dextrose 50% In Water (25gm) 50 Ml Syringe IV Q30MIN PRN Hypoglycemia Protocol Furosemide 20 mg 02/03/22 15:00 02/03/22 17:02 Furosemide 40 Mg/4 Ml Inj IV 02/04/22 19:00 20 mg ONCE@1500 LEISA Administration Guaifenesin 10 ml 02/03/22 10:36 02/03/22 19:04 Guaifenesin Dm 200/20 Mg Oral Liqd 10 Ml PO 10 ml Q4H PRN Administration Cough Heparin Sodium (Porcine) 5,000 unit 02/03/22 06:00 02/04/22 06:50 Heparin 5,000 Unit/1 Ml Vial SUB-Q 5,000 unit Q8HR LEISA Administration Sodium Chloride 1,000 mls @ 125 mls/hr 02/02/22 23:30 02/03/22 10:51 Nacl 0.9% 1000 Ml IV 125 mls/hr DIRECT LEISA Administration Ceftriaxone Sodium 2 gm in 100 mls @ 200 mls/hr 02/02/22 23:45 02/03/22 23:45 Rocephin/Ns 2 Gm/100 Ml IV 02/07/22 00:14 Infused Q24H LEISA Infusion Protocol Insulin Human Lispro 0 unit 02/03/22 07:30 02/04/22 09:50 Insulin Lispro 100 Unit/Ml SUB-Q 6 unit ACHS LEISA Administration Protocol Magnesium Hydroxide 30 ml 02/02/22 23:25 Magnesium Hydroxide (Mom) Oral Liqd Udc PO Q4H PRN Constipation Methylprednisolone Sodium Succinate 60 mg 02/03/22 12:00 02/04/22 06:50 Methylprednisolone Sod Succinate 125 Mg/2 Ml Inj IV 60 mg Q6HR LEISA Administration Morphine Sulfate 2 mg 02/02/22 23:25 Morphine 2 Mg/1 Ml Inj IV Q4H PRN Pain, Moderate (4-6) Ondansetron HCl 4 mg 02/02/22 23:25 Ondansetron 4 Mg/2 Ml Inj IV Q8H PRN Nausea And Vomiting Oxycodone/Acetaminophen 1 tab 02/02/22 23:09 02/04/22 05:00 Oxycodone /Acetaminophen 5-325mg Tab PO 1 tab Q6H PRN Administration Pain, Moderate (4-6) Sodium Chloride 10 ml 02/03/22 10:00 02/04/22 09:51 Sodium Chloride 0.9% 10 Ml Flush Syringe IV 10 ml BID LEISA Administration Sodium Chloride 10 ml 02/02/22 23:25 Sodium Chloride 0.9% 10 Ml Flush Syringe IV PRN PRN LINE FLUSH Nutrition/Malnutrition Assess - Dietary Evaluation Nutrition/Malnutrition Findings: Nutrition Notes Start: 02/03/22 11:29 Freq: Status: Active Protocol: Document 02/03/22 11:29 SHALOM (Rec: 02/03/22 11:38 SHALOM [id number]) Nutrition Notes Need for Assessment generated from: MD Order,Education Initial or Follow up Brief Note Current Diagnosis COPD,Diabetes,Sepsis, Hypertension,Respiratory Failure Other Pertinent Diagnosis CHF, Tachycardia, Pneumonia. Current Diet Cardiac/Consistent Carbohydrates Diet (since B ). Height 5 ft 10 in Weight 136.078 kg [place] Body Weight (kg) 68.18 BMI 43.0 Weight change and time frame None provided at admission. Weight Status Morbidly Obese Subjective/Other Information RD consult for nutrition education assessment. No reports available on Pt's PO intake of meals at the time , will assess at F/U. Pr is on a Non-Rebreather+, O2 saturation @ 95%, according to Physical Assessment History notes. Pt still in critical condition , not a candidate for Nutrition Education at the time, will assess feasibility on F/U. Percent of energy/protein needs met: Prescribed Cardiac/Consistent Carbohydrates Diet provides for energy/protein needs (1, 977 Kcal/86 g) during LOS. Nutrition Intervention Follow-Up By: 02/10/22 Additional Comments Nutrition education will be provided at F/U, if feasible. Continue monitoring food tolerance, %PO intake of meals , and BM.
--- NOTE | 2022-02-04 13:17 | Electrocardiograph Report ---
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
--- NOTE | 2022-02-04 14:02 | Progress Note ---
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 02/04/22: Continue High dose steroids until back on cannula and then can start to decrease. continue bid Pulmicort and Brovana. Daily net negative fluid state. Will continue to follow. COVID negative here. 1. Unable to find PFT's to support COPD diagnosis but apparently patient is a former smoker. Will place on BID Pulmicort and Brovana therapy as she is on Symbicort as an outpatient. 2. Will start High dose IV steroids as she responded well to this last time. 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 Rheum at [facility] is following. She needs therapy for her RA that should help with her ILD. Pulm at [place] planning to start patient OFEV 3. Wean FiO2 for sats > 88% 4. If patient is producing sputum please send for cytology for PCP pneumonia. She is suppose to be on prophylactic therapy but could not tell me if she has been taking the medication or not. Will check LDH. To unstable for bronch at this time 5. Follow up COVID 6. Guarded Prognosis. Subjective Date of service: 02/04/22 Interval history: Patient much improved today. Being transferred to [facility] Objective Vital Signs - 12hr 02/04/22 02/04/22 02/04/22 02:01 02:35 02:49 Temperature Pulse Rate 98 H Pulse Rate [ Anterior Bilateral Throughout] Pulse Rate [ 96 H Left Radial] Respiratory 17 22 Rate Respiratory Rate [Anterior Bilateral Throughout] Blood Pressure 122/63 O2 Sat by Pulse 98 96 96 Oximetry 02/04/22 02/04/22 02/04/22 03:01 04:00 05:01 Temperature Pulse Rate 97 H 92 H 94 H Pulse Rate [ Anterior Bilateral Throughout] Pulse Rate [ Left Radial] Respiratory 16 21 25 H Rate Respiratory Rate [Anterior Bilateral Throughout] Blood Pressure 122/63 103/58 116/86 O2 Sat by Pulse 95 100 97 Oximetry 02/04/22 02/04/22 02/04/22 05:15 06:00 06:52 Temperature Pulse Rate 95 H Pulse Rate [ Anterior Bilateral Throughout] Pulse Rate [ 96 H Left Radial] Respiratory 18 22 Rate Respiratory Rate [Anterior Bilateral Throughout] Blood Pressure 114/56 O2 Sat by Pulse 97 96 96 Oximetry 02/04/22 02/04/22 02/04/22 07:00 08:00 08:01 Temperature Pulse Rate 88 92 H Pulse Rate [ Anterior Bilateral Throughout] Pulse Rate [ 96 H Left Radial] Respiratory 11 L 22 23 Rate Respiratory Rate [Anterior Bilateral Throughout] Blood Pressure 104/49 104/49 O2 Sat by Pulse 99 96 96 Oximetry 02/04/22 02/04/22 02/04/22 08:27 08:28 09:00 Temperature Pulse Rate 87 Pulse Rate [ 86 Anterior Bilateral Throughout] Pulse Rate [ Left Radial] Respiratory 17 Rate Respiratory 22 Rate [Anterior Bilateral Throughout] Blood Pressure 108/64 O2 Sat by Pulse 99 97 Oximetry 02/04/22 02/04/22 02/04/22 10:00 11:01 11:29 Temperature 97.9 F Pulse Rate 87 104 H Pulse Rate [ Anterior Bilateral Throughout] Pulse Rate [ Left Radial] Respiratory 19 24 Rate Respiratory Rate [Anterior Bilateral Throughout] Blood Pressure 114/77 131/53 O2 Sat by Pulse 98 90 100 Oximetry CBC and BMP: 02/04/22 05:02 02/04/22 05:02 ABG, PT/INR, D-dimer: ABG ABG pH 7.452 pH Units (7.350-7.450) H 02/02/22 22:25 ABG pCO2 36.5 mm Hg 02/02/22 22:25 ABG pO2 129.2 mm Hg (80.0-90.0) H 02/02/22 22:25 ABG O2 Saturation 98.6 % (95.0-99.0) 02/02/22 22:25 Abnormal lab findings: Abnormal Labs 02/02/22 02/02/22 02/02/22 20:36 20:36 22:25 WBC 13.6 H RDW 16.7 H Seg Neuts % (Manual) 75.0 H Lymphocytes % (Manual) 10.0 L Monocytes % (Manual) 10.0 H Seg Neutrophils # Man 10.2 H Monocytes # (Manual) 1.4 H ABG pH 7.452 H ABG pO2 129.2 H Sodium Chloride Glucose 145 H POC Glucose Calcium Lactate Dehydrogenase 02/03/22 02/03/22 02/03/22 05:39 10:40 21:13 WBC RDW Seg Neuts % (Manual) Lymphocytes % (Manual) Monocytes % (Manual) Seg Neutrophils # Man Monocytes # (Manual) ABG pH ABG pO2 Sodium Chloride Glucose 121 H POC Glucose 120 H 157 H Calcium Lactate Dehydrogenase 02/03/22 02/04/22 02/04/22 21:25 05:02 05:02 WBC RDW 16.3 H Seg Neuts % (Manual) Lymphocytes % (Manual) Monocytes % (Manual) Seg Neutrophils # Man Monocytes # (Manual) ABG pH ABG pO2 Sodium 135 L Chloride 97.2 L Glucose 249 H POC Glucose Calcium 8.2 L Lactate Dehydrogenase 516 H 02/04/22 08:50 WBC RDW Seg Neuts % (Manual) Lymphocytes % (Manual) Monocytes % (Manual) Seg Neutrophils # Man Monocytes # (Manual) ABG pH ABG pO2 Sodium Chloride Glucose POC Glucose 274 H Calcium Lactate Dehydrogenase
[2022-02-04] MEDS: FUROSEMIDE 40 MG/4 ML INJ IV SCH (14:05)
[2022-02-04] MEDS: MORPHINE 2 MG/1 ML INJ IV PRN (17:31)
[2022-02-04] MEDS: guaiFENesin DM 200/20 MG ORAL LIQD 10 ML PO PRN (20:47)
[2022-02-04] MEDS: AZITHROMYCIN 250 MG TAB PO SCH (21:08)
[2022-02-04] MEDS: cefTRIAXone/NS 2 GM/100 ML 2 GM/100 ML BAG IV SCH (23:40)
[2022-02-05] MEDS: ACETAMINOPHEN 325 MG TAB PO PRN (03:45)
[2022-02-05] MEDS: HEPARIN 5,000 UNIT/1 ML VIAL SUB-Q SCH ×3 (05:46→22:12)
[2022-02-05] MEDS: methylPREDNISolone Sod Succinate 125 MG/2 ML INJ IV SCH ×4 (05:47→23:04)
[2022-02-05] MEDS: guaiFENesin DM 200/20 MG ORAL LIQD 10 ML PO PRN ×3 (06:43→22:12)
[2022-02-05] MEDS: BUDESONIDE 0.5 MG/2 ML NEBU IH SCH ×2 (08:35→20:58)
--- NOTE | 2022-02-05 09:17 | Progress Note ---
Assessment and Plan Assessment and plan: 71-year-old [place] female with known history of CHF, diabetes mellitus, hypertension and COPD presenting to the emergency room today complaining of shortness of breath which has been ongoing for the past 2 days. Patient has also had some mild fever and chills at home. She denies any sick contacts and no recent travel. Denies any contact with anyone with COVID-19. Patient is vaccinated against COVID-19 however she has not received a booster shot. Patient denies any chest pain. Denies any headache or dizziness and denies any diaphoresis. Upon arrival in the emergency room patient was found to be tachycardic and hypoxic with O2 saturation of about 80%. She was initially on nonrebreather and subsequently placed on the BiPAP. Work-up in the emergency room today, lab reveals leukocytosis of 13. BNP of 34. All other labs were essentially within normal limits. Chest x-ray however reveals: Increased airspace opacities bilaterally in the lower lobes concerning for multifocal pneumonia. Patient has been commenced on empiric IV antibiotics. Past History Past Medical History: COPD, diabetes, heart failure, hypertension, other (H/O Asthma) Past Surgical History: cholecystectomy Social history: no significant social history Family history: no significant family history 02/03: Patient seen and examined chest x-ray reviewed, agree as noted above. 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 Has had multiple hospitalization for which farm management agent has recommended long-acting steroid taper and also a biopsy in the past. With a new diagnosis of RA most likely no biopsy will be needed. Nevertheless will refer to outpatient farm management agent which the patient follows with [facility] team. We will send sputum for cytology for PCP pneumonia. We will try to obtain all home medication to see if she is on prophylactic PCP therapy. Continue steroids as ordered by farm management agent and also BID Pulmicort and Brovana therapy. We will trial some diuresis and also consult cardiology to assist with management. 02/04: Patient seen and examined, clinically improving. On high flow at 45%. No worsening distress. Ok to transfer to Medical Floor with tele. Continue steroids. 02/05: Pulm input noted, o2 weaning down, today 15L 30% sating 98%, will monitor and wean further later today if she maintains. Continue IV steroids. 1. Acute Hypoxic Respiratory Failure- Currently on BIPAP 2. possible ILD 3. Sepsis 4. Diabetes Mellitus 5. RA 6. Possible acute on chronic diastolic congestive heart failure. 7. Morbid Obesity Plan: 1. Patient placed on empiric IV antibiotics. 2. Await culture results- Negative so far 3. Placed on sliding scale insulin. Monitor accuchek closely 4. Will Oxygen saturation greater than 92% . 5. Resume routine home medications. DVT Prophylaxis:SQ Heparin Code Status: Full Code The high probability of a clinically significant, sudden or life threatening deterioration of the [multiple] system(s) required my full and direct attention, intervention and personal management. The aggregate critical care time was [60] minutes. This time is in addition to time spent performing reported procedures but includes the following: [x] Data Review and interpretation [x] Patient assessment and monitoring of vital signs [x] Documentation [x] Medication orders and management History Interval history: Patient seen and examined improving significantly still on high flow but no increased work breathing, denies any chest pain nausea vomiting or diarrhea at this time. Hospitalist Physical - Physical exam Narrative exam: General appearance: Present: improving respiratory distress, well-nourished, morbid obese - EENT Eyes: Present: PERRL, EOM intact. Absent: scleral icterus ENT: hearing intact, clear oral mucosa, dentition normal - Neck Neck: Present: supple, normal ROM - Respiratory Respiratory effort: Increased work of breathing improved. No accessory muscle use Respiratory: bilateral: rales - Cardiovascular Rhythm: regular Heart Sounds: Present: S1 & S2. Absent: gallop, systolic murmur, diastolic murmur - Extremities Extremities: no ischemia, pulses intact, pulses symmetrical, No edema, normal temperature, normal color, Full ROM Peripheral Pulses: within normal limits - Abdominal General gastrointestinal: Present: soft, non-tender, non-distended, normal bowel sounds. Absent: mass - Integumentary Integumentary: Present: clear, warm, dry, normal turgor. Absent: rash - Musculoskeletal Musculoskeletal: strength equal bilaterally - Psychiatric Psychiatric: appropriate mood/affect, intact judgment & insight, memory intact, cooperative - Neurologic Neurologic: CNII-XII intact, no focal deficits, moves all extremities - Constitutional Vitals: Temp Pulse Resp BP Pulse Ox 97.4 F L 93 H 20 93/64 100 02/05/22 06:11 02/05/22 08:38 02/05/22 08:38 02/05/22 06:11 02/05/22 08:38 General appearance: Present: mild distress (On BIPAP), well-nourished, obese HEART Score - HEART Score Troponin: Troponin T < 0.010 ng/mL (0.00-0.029) 02/02/22 20:36 Results - Labs CBC & Chem 7: 02/04/22 05:02 02/04/22 05:02 Labs: Laboratory Last Values WBC 5.7 K/mm3 (4.5-11.0) 02/04/22 05:02 RBC 4.00 M/mm3 (3.65-5.03) 02/04/22 05:02 Hgb 11.2 gm/dl (10.1-14.3) 02/04/22 05:02 Hct 34.6 % (30.3-42.9) 02/04/22 05:02 MCV 87 fl (79-97) 02/04/22 05:02 MCH 28 pg (28-32) 02/04/22 05:02 MCHC 33 % (30-34) 02/04/22 05:02 RDW 16.3 % (13.2-15.2) H 02/04/22 05:02 Plt Count 236 K/mm3 (140-440) 02/04/22 05:02 Add Manual Diff Complete 02/02/22 20:36 Total Counted 100 02/02/22 20:36 Seg Neuts % (Manual) 75.0 % (40.0-70.0) H 02/02/22 20:36 Band Neutrophils % 4.0 % 02/02/22 20:36 Lymphocytes % (Manual) 10.0 % (13.4-35.0) L 02/02/22 20:36 Reactive Lymphs % (Man) 0 % 02/02/22 20:36 Monocytes % (Manual) 10.0 % (0.0-7.3) H 02/02/22 20:36 Eosinophils % (Manual) 1.0 % (0.0-4.3) 02/02/22 20:36 Basophils % (Manual) 0 % (0.0-1.8) 02/02/22 20:36 Metamyelocytes % 0 % 02/02/22 20:36 Myelocytes % 0 % 02/02/22 20:36 Promyelocytes % 0 % 02/02/22 20:36 Blast Cells % 0 % 02/02/22 20:36 Nucleated RBC % Not Reportable 02/02/22 20:36 Seg Neutrophils # Man 10.2 K/mm3 (1.8-7.7) H 02/02/22 20:36 Band Neutrophils # 0.5 K/mm3 02/02/22 20:36 Lymphocytes # (Manual) 1.4 K/mm3 (1.2-5.4) 02/02/22 20:36 Abs React Lymphs (Man) 0.0 K/mm3 02/02/22 20:36 Monocytes # (Manual) 1.4 K/mm3 (0.0-0.8) H 02/02/22 20:36 Eosinophils # (Manual) 0.1 K/mm3 (0.0-0.4) 02/02/22 20:36 Basophils # (Manual) 0.0 K/mm3 (0.0-0.1) 02/02/22 20:36 Metamyelocytes # 0.0 K/mm3 02/02/22 20:36 Myelocytes # 0.0 K/mm3 02/02/22 20:36 Promyelocytes # 0.0 K/mm3 02/02/22 20:36 Blast Cells # 0.0 K/mm3 02/02/22 20:36 WBC Morphology Not Reportable 02/02/22 20:36 Hypersegmented Neuts Not Reportable 02/02/22 20:36 Hyposegmented Neuts Not Reportable 02/02/22 20:36 Hypogranular Neuts Not Reportable 02/02/22 20:36 Smudge Cells Not Reportable 02/02/22 20:36 Toxic Granulation Not Reportable 02/02/22 20:36 Toxic Vacuolation Not Reportable 02/02/22 20:36 Dohle Bodies Not Reportable 02/02/22 20:36 Pelger-Huet Anomaly Not Reportable 02/02/22 20:36 Kelli Rods Not Reportable 02/02/22 20:36 Platelet Estimate Consistent w auto 02/02/22 20:36 Clumped Platelets Not Reportable 02/02/22 20:36 Plt Clumps, EDTA Not Reportable 02/02/22 20:36 Large Platelets Not Reportable 02/02/22 20:36 Giant Platelets Not Reportable 02/02/22 20:36 Platelet Satelliting Not Reportable 02/02/22 20:36 Plt Morphology Comment Not Reportable 02/02/22 20:36 RBC Morphology Not Reportable 02/02/22 20:36 Dimorphic RBCs Not Reportable 02/02/22 20:36 Polychromasia Not Reportable 02/02/22 20:36 Hypochromasia Not Reportable 02/02/22 20:36 Poikilocytosis Not Reportable 02/02/22 20:36 Anisocytosis 1+ 02/02/22 20:36 Microcytosis Few 02/02/22 20:36 Macrocytosis Not Reportable 02/02/22 20:36 Spherocytes Not Reportable 02/02/22 20:36 Pappenheimer Bodies Not Reportable 02/02/22 20:36 Sickle Cells Not Reportable 02/02/22 20:36 Target Cells Not Reportable 02/02/22 20:36 Tear Drop Cells Not Reportable 02/02/22 20:36 Ovalocytes Not Reportable 02/02/22 20:36 Helmet Cells Not Reportable 02/02/22 20:36 [place] Bodies Not Reportable 02/02/22 20:36 [place] Rings Not Reportable 02/02/22 20:36 [place] Cells Not Reportable 02/02/22 20:36 Bite Cells Not Reportable 02/02/22 20:36 Crenated Cell Not Reportable 02/02/22 20:36 Elliptocytes Not Reportable 02/02/22 20:36 Acanthocytes (Spur) Not Reportable 02/02/22 20:36 Rouleaux Not Reportable 02/02/22 20:36 Hemoglobin C Crystals Not Reportable 02/02/22 20:36 Schistocytes Not Reportable 02/02/22 20:36 Malaria parasites Not Reportable 02/02/22 20:36 [place] Bodies Not Reportable 02/02/22 20:36 Hem Pathologist Commnt No 02/02/22 20:36 ABG pH 7.452 pH Units (7.350-7.450) H 02/02/22 22:25 ABG pCO2 36.5 mm Hg 02/02/22 22:25 ABG pO2 129.2 mm Hg (80.0-90.0) H 02/02/22 22:25 ABG HCO3 25.0 mmol/L (20.0-26.0) 02/02/22 22:25 ABG O2 Saturation 98.6 % (95.0-99.0) 02/02/22 22:25 ABG O2 Content 16.6 (0.0-44) 02/02/22 22:25 ABG Base Excess 1.2 mmol/L (-2.0-3.0) 02/02/22 22:25 ABG Hemoglobin 12.0 gm/dl (12.0-16.0) 02/02/22 22:25 ABG Carboxyhemoglobin 1.0 % (0.0-5.0) 02/02/22:25 ABG Methemoglobin 0.5 % (0.0-1.5) 02/02/22 22: Oxyhemoglobin 97.1 % (95.0-99.0) 02/02/22 22:25 FiO2 50 % 02/02/22 22:25 Sodium 135 mmol/L (137-145) L 02/04/22 05:02 Potassium 4.4 mmol/L (3.6-5.0) 02/04/22 05:02 Chloride 97.2 mmol/L (98-107) L 02/04/22 05:02 Carbon Dioxide 23 mmol/L (22-30) 02/04/22 05:02 Anion Gap 19 mmol/L 02/04/22 05:02 BUN 13 mg/dL (7-17) 02/04/22 05:02 Creatinine 0.8 mg/dL (0.6-1.2) 02/04/22 05:02 Estimated GFR > 60 ml/min 02/04/22 05:02 BUN/Creatinine Ratio 16 % 02/04/22 05:02 Glucose 249 mg/dL (65-100) H 02/04/22 05:02 POC Glucose 193 mg/dL (70-105) H 02/04/22 20:17 Lactic Acid 1.60 mmol/L (0.7-2.0) 02/02/22 21:35 Calcium 8.2 mg/dL (8.4-10.2) L 02/04/22 05:02 Magnesium 1.70 mg/dL (1.7-2.3) 02/02/22 20:36 Total Bilirubin 0.50 mg/dL (0.1-1.2) 02/02/22 20:36 AST 25 units/L (5-40) 02/02/22 20:36 ALT 23 units/L (7-56) 02/02/22 20:36 Alkaline Phosphatase 70 units/L (35-129) 02/02/22 20:36 Lactate Dehydrogenase 516 units/L (91-180) H 02/03/22 21:25 Troponin T < 0.010 ng/mL (0.00-0.029) 02/02/22 20:36 NT-Pro-B Natriuret Pep 34.27 pg/mL (0-900) 02/02/22 20:36 Total Protein 6.5 g/dL (6.3-8.2) 02/02/22 20:36 Albumin 4.0 g/dL (3.9-5) 02/02/22 20:36 Albumin/Globulin Ratio 1.6 % 02/02/22 20:36 Coronavirus (PCR) Negative (Negative) 02/03/22 Unknown Microbiology: Microbiology 02/02/22 21:35 Peripheral/Venous Blood Culture - Preliminary NO GROWTH AFTER 48 HOURS 02/02/22 21:35 Peripheral/Venous Blood Culture - Preliminary NO GROWTH AFTER 48 HOURS [place]/IV: Voiding Method External Female Catheter Active Medications - Current Medications Current Medications: Generic Name Dose Route Start Last Admin Trade Name Freq PRN Reason Stop Dose Admin Acetaminophen 650 mg 02/02/22 23:25 02/05/22 03:45 Acetaminophen 325 Mg Tab PO 650 mg Q4H PRN Administration Pain MILD(1-3)/Fever >100.5/WONG Azithromycin 500 mg 02/04/22 21:00 02/04/22 21:08 Azithromycin 250 Mg Tab PO 02/06/22 21:01 500 mg Q24H LEISA Administration Budesonide 0.5 mg 02/04/22 08:00 02/05/22 08:35 Budesonide 0.5 Mg/2 Ml Nebu IH 0.5 mg Q12HRT LEISA Administration Dextrose 50 ml 02/02/22 23:25 Dextrose 50% In Water (25gm) 50 Ml Syringe IV Q30MIN PRN Hypoglycemia Protocol Guaifenesin 10 ml 02/03/22 10:36 02/05/22 06:43 Guaifenesin Dm 200/20 Mg Oral Liqd 10 Ml PO 10 ml Q4H PRN Administration Cough Heparin Sodium (Porcine) 5,000 unit 02/03/22 06:00 02/05/22 05:46 Heparin 5,000 Unit/1 Ml Vial SUB-Q 5,000 unit Q8HR LEISA Administration Sodium Chloride 1,000 mls @ 125 mls/hr 02/02/22 23:30 02/03/22 10:51 Nacl 0.9% 1000 Ml IV 125 mls/hr DIRECT LEISA Administration Ceftriaxone Sodium 2 gm in 100 mls @ 200 mls/hr 02/02/22 23:45 02/04/22 23:40 Rocephin/Ns 2 Gm/100 Ml IV 02/07/22 00:14 200 mls/hr Q24H LEISA Administration Protocol Insulin Human Lispro 0 unit 02/03/22 07:30 02/04/22 22:08 Insulin Lispro 100 Unit/Ml SUB-Q 3 unit ACHS LEISA Administration Protocol Magnesium Hydroxide 30 ml 02/02/22 23:25 Magnesium Hydroxide (Mom) Oral Liqd Udc PO Q4H PRN Constipation Methylprednisolone Sodium Succinate 60 mg 02/03/22 12:00 02/05/22 05:47 Methylprednisolone Sod Succinate 125 Mg/2 Ml Inj IV 60 mg Q6HR LEISA Administration Morphine Sulfate 2 mg 02/02/22 23:25 02/04/22 17:31 Morphine 2 Mg/1 Ml Inj IV 2 mg Q4H PRN Administration Pain, Moderate (4-6) Ondansetron HCl 4 mg 02/02/22 23:25 Ondansetron 4 Mg/2 Ml Inj IV Q8H PRN Nausea And Vomiting Oxycodone/Acetaminophen 1 tab 02/02/22 23:09 02/04/22 23:42 Oxycodone /Acetaminophen 5-325mg Tab PO 1 tab Q6H PRN Administration Pain, Moderate (4-6) Sodium Chloride 10 ml 02/03/22 10:00 02/04/22 21:09 Sodium Chloride 0.9% 10 Ml Flush Syringe IV 10 ml BID LEISA Administration Sodium Chloride 10 ml 02/02/22 23:25 Sodium Chloride 0.9% 10 Ml Flush Syringe IV PRN PRN LINE FLUSH Nutrition/Malnutrition Assess - Dietary Evaluation Nutrition/Malnutrition Findings: Nutrition Notes Start: 02/03/22 11:29 Freq: Status: Active Protocol: Document 02/03/22 11:29 SHALOM (Rec: 02/03/22 11:38 SHALOM [id number]) Nutrition Notes Need for Assessment generated from: MD Order,Education Initial or Follow up Brief Note Current Diagnosis COPD,Diabetes,Sepsis, Hypertension,Respiratory Failure Other Pertinent Diagnosis CHF, Tachycardia, Pneumonia. Current Diet Cardiac/Consistent Carbohydrates Diet (since B ). Height 5 ft 10 in Weight 136.078 kg [place] Body Weight (kg) 68.18 BMI 43.0 Weight change and time frame None provided at admission. Weight Status Morbidly Obese Subjective/Other Information RD consult for nutrition education assessment. No reports available on Pt's PO intake of meals at the time , will assess at F/U. Pr is on a Non-Rebreather+, O2 saturation @ 95%, according to Physical Assessment History notes. Pt still in critical condition , not a candidate for Nutrition Education at the time, will assess feasibility on F/U. Percent of energy/protein needs met: Prescribed Cardiac/Consistent Carbohydrates Diet provides for energy/protein needs (1, 977 Kcal/86 g) during LOS. Nutrition Intervention Follow-Up By: 02/10/22 Additional Comments Nutrition education will be provided at F/U, if feasible. Continue monitoring food tolerance, %PO intake of meals , and BM.
[2022-02-05] MEDS: INSULIN LISPRO 100 UNIT/ML SUB-Q SCH ×4 (10:34→22:13)
--- NOTE | 2022-02-05 12:03 | Progress Note ---
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 02/05/2022: Overall improved oxygen requirement has decreased to 15 L high flow nasal cannula at 30%. We will continue with high-dose steroids for now. Suspect has sleep apnea as well will require sleep studies etc. in the future 02/04/22: Continue High dose steroids until back on cannula and then can start to decrease. continue bid Pulmicort and Brovana. Daily net negative fluid state. Will continue to follow. COVID negative here. 1. Unable to find PFT's to support COPD diagnosis but apparently patient is a former smoker. Will place on BID Pulmicort and Brovana therapy as she is on Symbicort as an outpatient. 2. Will start High dose IV steroids as she responded well to this last time. 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 Rheum at [facility] is following. She needs therapy for her RA that should help with her ILD. Pulm at [facility] planning to start patient OFEV 3. Wean FiO2 for sats > 88% 4. If patient is producing sputum please send for cytology for PCP pneumonia. She is suppose to be on prophylactic therapy but could not tell me if she has been taking the medication or not. Will check LDH. To unstable for bronch at this time 5. Follow up COVID 6. Guarded Prognosis. Subjective Date of service: 02/05/22 Interval history: Patient reports feeling and breathing better. Objective - Exam Narrative Exam: General appearance: Present: improving respiratory distress, well-nourished, morbid obese - EENT Eyes: Present: PERRL, EOM intact. Absent: scleral icterus ENT: hearing intact, clear oral mucosa, dentition normal - Neck Neck: Present: supple, normal ROM - Respiratory Respiratory effort: Increased work of breathing improved. No accessory muscle use Respiratory: bilateral: rales - Cardiovascular Rhythm: regular Heart Sounds: Present: S1 & S2. Absent: gallop, systolic murmur, diastolic murmur - Extremities Extremities: no ischemia, pulses intact, pulses symmetrical, No edema, normal temperature, normal color, Full ROM Peripheral Pulses: within normal limits - Abdominal General gastrointestinal: Present: soft, non-tender, non-distended, normal bowel sounds. Absent: mass - Integumentary Integumentary: Present: clear, warm, dry, normal turgor. Absent: rash - Musculoskeletal Musculoskeletal: strength equal bilaterally - Psychiatric Psychiatric: appropriate mood/affect, intact judgment & insight, memory intact, cooperative - Neurologic Neurologic: CNII-XII intact, no focal deficits, moves all extremities Vital Signs - 12hr 02/05/22 02/05/22 02/05/22 00:42 02:32 03:45 Temperature Pulse Rate Pulse Rate [ Anterior Bilateral Throughout] Respiratory 17 18 Rate Respiratory Rate [Anterior Bilateral Throughout] Blood Pressure O2 Sat by Pulse 98 Oximetry 02/05/22 02/05/22 06:11 08:38 Temperature 97.4 F L Pulse Rate 98 H Pulse Rate [ 93 H Anterior Bilateral Throughout] Respiratory 24 Rate Respiratory 20 Rate [Anterior Bilateral Throughout] Blood Pressure 93/64 O2 Sat by Pulse 90 100 Oximetry CBC and BMP: 02/04/22 05:02 02/04/22 05:02 ABG, PT/INR, D-dimer: ABG ABG pH 7.452 pH Units (7.350-7.450) H 02/02/22 22:25 ABG pCO2 36.5 mm Hg 02/02/22 22:25 ABG pO2 129.2 mm Hg (80.0-90.0) H 02/02/22 22:25 ABG O2 Saturation 98.6 % (95.0-99.0) 02/02/22 22:25 Abnormal lab findings: Abnormal Labs 02/02/22 02/02/22 02/02/22 20:36 20:36 22:25 WBC 13.6 H RDW 16.7 H Seg Neuts % (Manual) 75.0 H Lymphocytes % (Manual) 10.0 L Monocytes % (Manual) 10.0 H Seg Neutrophils # Man 10.2 H Monocytes # (Manual) 1.4 H ABG pH 7.452 H ABG pO2 129.2 H Sodium Chloride Glucose 145 H POC Glucose Calcium Lactate Dehydrogenase 02/03/22 02/03/22 02/03/22 05:39 10:40 21:13 WBC RDW Seg Neuts % (Manual) Lymphocytes % (Manual) Monocytes % (Manual) Seg Neutrophils # Man Monocytes # (Manual) ABG pH ABG pO2 Sodium Chloride Glucose 121 H POC Glucose 120 H 157 H Calcium Lactate Dehydrogenase 02/03/22 02/04/22 02/04/22 21:25 05:02 05:02 WBC RDW 16.3 H Seg Neuts % (Manual) Lymphocytes % (Manual) Monocytes % (Manual) Seg Neutrophils # Man Monocytes # (Manual) ABG pH ABG pO2 Sodium 135 L Chloride 97.2 L Glucose 249 H POC Glucose Calcium 8.2 L Lactate Dehydrogenase 516 H 02/04/22 02/04/22 02/04/22 08:50 11:44 16:56 WBC RDW Seg Neuts % (Manual) Lymphocytes % (Manual) Monocytes % (Manual) Seg Neutrophils # Man Monocytes # (Manual) ABG pH ABG pO2 Sodium Chloride Glucose POC Glucose 274 H 176 H 216 H Calcium Lactate Dehydrogenase 02/04/22 20:17 WBC RDW Seg Neuts % (Manual) Lymphocytes % (Manual) Monocytes % (Manual) Seg Neutrophils # Man Monocytes # (Manual) ABG pH ABG pO2 Sodium Chloride Glucose POC Glucose 193 H Calcium Lactate Dehydrogenase
[2022-02-05] MEDS: oxyCODONE /ACETAMINOPHEN 5-325MG TAB PO PRN (22:12)
[2022-02-05] MEDS: cefTRIAXone/NS 2 GM/100 ML 2 GM/100 ML BAG IV SCH (22:15)
[2022-02-05] MEDS: AZITHROMYCIN 250 MG TAB PO SCH (23:04)
[2022-02-06] MEDS: cefTRIAXone/NS 2 GM/100 ML 2 GM/100 ML BAG IV SCH ×3 (00:06→23:42)
[2022-02-06] MEDS: methylPREDNISolone Sod Succinate 125 MG/2 ML INJ IV SCH ×4 (05:11→23:38)
[2022-02-06] MEDS: HEPARIN 5,000 UNIT/1 ML VIAL SUB-Q SCH ×3 (05:12→22:39)
[2022-02-06 05:14] LABS: Hematocrit 32.6 % (30.3-42.9); Hemoglobin 10.9 gm/dl (10.1-14.3); Mean Corpuscular HGB Conc 33 % (30-34); Mean Corpuscular Volume 86 fl (79-97); Platelet Count 264 K/mm3 (140-440); Red Blood Count 3.79 M/mm3 (3.65-5.03); Red Cell Distribution Width 16.7 % (13.2-15.2)
[2022-02-06 05:31] LABS: BUN/Creatinine Ratio 21; Blood Urea Nitrogen 19 mg/dL (7-17); Calcium 8.9 mg/dL (8.4-10.2); Hemolysis Index 4
[2022-02-06] MEDS: INSULIN LISPRO 100 UNIT/ML SUB-Q SCH ×4 (08:59→22:40)
--- NOTE | 2022-02-06 12:05 | Progress Note ---
Assessment and Plan Assessment and plan: 71-year-old [place] female with known history of CHF, diabetes mellitus, hypertension and COPD presenting to the emergency room today complaining of shortness of breath which has been ongoing for the past 2 days. Patient has also had some mild fever and chills at home. She denies any sick contacts and no recent travel. Denies any contact with anyone with COVID-19. Patient is vaccinated against COVID-19 however she has not received a booster shot. Patient denies any chest pain. Denies any headache or dizziness and denies any diaphoresis. Upon arrival in the emergency room patient was found to be tachycardic and hypoxic with O2 saturation of about 80%. She was initially on nonrebreather and subsequently placed on the BiPAP. Work-up in the emergency room today, lab reveals leukocytosis of 13. BNP of 34. All other labs were essentially within normal limits. Chest x-ray however reveals: Increased airspace opacities bilaterally in the lower lobes concerning for multifocal pneumonia. Patient has been commenced on empiric IV antibiotics. Past History Past Medical History: COPD, diabetes, heart failure, hypertension, other (H/O Asthma) Past Surgical History: cholecystectomy Social history: no significant social history Family history: no significant family history 02/03: Patient seen and examined chest x-ray reviewed, agree as noted above. 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 Has had multiple hospitalization for which finance analyst has recommended long-acting steroid taper and also a biopsy in the past. With a new diagnosis of RA most likely no biopsy will be needed. Nevertheless will refer to outpatient finance analyst which the patient follows with [facility] team. We will send sputum for cytology for PCP pneumonia. We will try to obtain all home medication to see if she is on prophylactic PCP therapy. Continue steroids as ordered by finance analyst and also BID Pulmicort and Brovana therapy. We will trial some diuresis and also consult cardiology to assist with management. 02/04: Patient seen and examined, clinically improving. On high flow at 45%. No worsening distress. Ok to transfer to Medical Floor with tele. Continue steroids. 02/05: Pulm input noted, o2 weaning down, today 15L 30% sating 98%, will monitor and wean further later today if she maintains. Continue IV steroids. 9/18: Patient remains on High flow now at 35% from 30% FIO2 due to destauration early this am. Will continue High flow. Continue IV steriods 1. Acute Hypoxic Respiratory Failure- Currently on BIPAP 2. Possible Rheumatoid ATHRITIS RELATED Interstitial Lung Disease 3. Sepsis 4. Diabetes Mellitus 5. RA 6. Possible acute on chronic diastolic congestive heart failure. 7. Morbid Obesity Plan: 1. Patient placed on empiric IV antibiotics. 2. Await culture results- Negative so far 3. Placed on sliding scale insulin. Monitor accuchek closely 4. Will Oxygen saturation greater than 92% . 5. Resume routine home medications. DVT Prophylaxis:SQ Heparin Code Status: Full Code The high probability of a clinically significant, sudden or life threatening deterioration of the [multiple] system(s) required my full and direct attention, intervention and personal management. The aggregate critical care time was [60] minutes. This time is in addition to time spent performing reported procedures but includes the following: [x] Data Review and interpretation [x] Patient assessment and monitoring of vital signs [x] Documentation [x] Medication orders and management History Interval history: Patient seen and examined improving significantly still on high flow but no increased work breathing, early this am saturation was noted at 89% and FIO2 was increased from 30% to 35% denies any chest pain nausea vomiting or diarrhea at this time. Hospitalist Physical - Physical exam Narrative exam: General appearance: Present: improving respiratory distress, well-nourished, morbid obese - EENT Eyes: Present: PERRL, EOM intact. Absent: scleral icterus ENT: hearing intact, clear oral mucosa, dentition normal - Neck Neck: Present: supple, normal ROM - Respiratory Respiratory effort: Increased work of breathing improved. No accessory muscle use Respiratory: bilateral: rales - Cardiovascular Rhythm: regular Heart Sounds: Present: S1 & S2. Absent: gallop, systolic murmur, diastolic murmur - Extremities Extremities: no ischemia, pulses intact, pulses symmetrical, No edema, normal temperature, normal color, Full ROM Peripheral Pulses: within normal limits - Abdominal General gastrointestinal: Present: soft, non-tender, non-distended, normal bowel sounds. Absent: mass - Integumentary Integumentary: Present: clear, warm, dry, normal turgor. Absent: rash - Musculoskeletal Musculoskeletal: strength equal bilaterally - Psychiatric Psychiatric: appropriate mood/affect, intact judgment & insight, memory intact, cooperative - Neurologic Neurologic: CNII-XII intact, no focal deficits, moves all extremities - Constitutional Vitals: Temp Pulse Resp BP Pulse Ox 98.1 F 86 18 133/75 97 02/06/22 05:00 02/06/22 05:00 02/06/22 05:00 02/06/22 05:00 02/06/22 10:15 General appearance: Present: mild distress (On BIPAP), well-nourished, obese HEART Score - HEART Score Troponin: Troponin T < 0.010 ng/mL (0.00-0.029) 02/02/22 20:36 Results - Labs CBC & Chem 7: 02/06/22 04:50 02/06/22 04:50 Labs: Laboratory Last Values WBC 16.9 K/mm3 (4.5-11.0) H 02/06/22 04:50 RBC 3.79 M/mm3 (3.65-5.03) 02/06/22 04:50 Hgb 10.9 gm/dl (10.1-14.3) 02/06/22 04:50 Hct 32.6 % (30.3-42.9) 02/06/22 04:50 MCV 86 fl (79-97) 02/06/22 04:50 MCH 29 pg (28-32) 02/06/22 04:50 MCHC 33 % (30-34) 02/06/22 04:50 RDW 16.7 % (13.2-15.2) H 02/06/22 04:50 Plt Count 264 K/mm3 (140-440) 02/06/22 04:50 Add Manual Diff Complete 02/02/22 20:36 Total Counted 100 02/02/22 20:36 Seg Neuts % (Manual) 75.0 % (40.0-70.0) H 02/02/22 20:36 Band Neutrophils % 4.0 % 02/02/22 20:36 Lymphocytes % (Manual) 10.0 % (13.4-35.0) L 02/02/22 20:36 Reactive Lymphs % (Man) 0 % 02/02/22 20:36 Monocytes % (Manual) 10.0 % (0.0-7.3) H 02/02/22 20:36 Eosinophils % (Manual) 1.0 % (0.0-4.3) 02/02/22 20:36 Basophils % (Manual) 0 % (0.0-1.8) 02/02/22 20:36 Metamyelocytes % 0 % 02/02/22 20:36 Myelocytes % 0 % 02/02/22 20:36 Promyelocytes % 0 % 02/02/22 20:36 Blast Cells % 0 % 02/02/22 20:36 Nucleated RBC % Not Reportable 02/02/22 20:36 Seg Neutrophils # Man 10.2 K/mm3 (1.8-7.7) H 02/02/22 20:36 Band Neutrophils # 0.5 K/mm3 02/02/22 20:36 Lymphocytes # (Manual) 1.4 K/mm3 (1.2-5.4) 02/02/22 20:36 Abs React Lymphs (Man) 0.0 K/mm3 02/02/22 20:36 Monocytes # (Manual) 1.4 K/mm3 (0.0-0.8) H 02/02/22 20:36 Eosinophils # (Manual) 0.1 K/mm3 (0.0-0.4) 02/02/22 20:36 Basophils # (Manual) 0.0 K/mm3 (0.0-0.1) 02/02/22 20:36 Metamyelocytes # 0.0 K/mm3 02/02/22 20:36 Myelocytes # 0.0 K/mm3 02/02/22 20:36 Promyelocytes # 0.0 K/mm3 02/02/22 20:36 Blast Cells # 0.0 K/mm3 02/02/22 20:36 WBC Morphology Not Reportable 02/02/22 20:36 Hypersegmented Neuts Not Reportable 02/02/22 20:36 Hyposegmented Neuts Not Reportable 02/02/22 20:36 Hypogranular Neuts Not Reportable 02/02/22 20:36 Smudge Cells Not Reportable 02/02/22 20:36 Toxic Granulation Not Reportable 02/02/22 20:36 Toxic Vacuolation Not Reportable 02/02/22 20:36 Dohle Bodies Not Reportable 02/02/22 20:36 Pelger-Huet Anomaly Not Reportable 02/02/22 20:36 Kelli Rods Not Reportable 02/02/22 20:36 Platelet Estimate Consistent w auto 02/02/22 20:36 Clumped Platelets Not Reportable 02/02/22 20:36 Plt Clumps, EDTA Not Reportable 02/02/22 20:36 Large Platelets Not Reportable 02/02/22 20:36 Giant Platelets Not Reportable 02/02/22 20:36 Platelet Satelliting Not Reportable 02/02/22 20:36 Plt Morphology Comment Not Reportable 02/02/22 20:36 RBC Morphology Not Reportable 02/02/22 20:36 Dimorphic RBCs Not Reportable 02/02/22 20:36 Polychromasia Not Reportable 02/02/22 20:36 Hypochromasia Not Reportable 02/02/22 20:36 Poikilocytosis Not Reportable 02/02/22 20:36 Anisocytosis 1+ 02/02/22 20:36 Microcytosis Few 02/02/22 20:36 Macrocytosis Not Reportable 02/02/22 20:36 Spherocytes Not Reportable 02/02/22 20:36 Pappenheimer Bodies Not Reportable 02/02/22 20:36 Sickle Cells Not Reportable 02/02/22 20:36 Target Cells Not Reportable 02/02/22 20:36 Tear Drop Cells Not Reportable 02/02/22 20:36 Ovalocytes Not Reportable 02/02/22 20:36 Helmet Cells Not Reportable 02/02/22 20:36 Pendleton-Mellette Bodies Not Reportable 02/02/22 20:36 Mica Rings Not Reportable 02/02/22 20:36 Ariela Cells Not Reportable 02/02/22 20:36 Bite Cells Not Reportable 02/02/22 20:36 Crenated Cell Not Reportable 02/02/22 20:36 Elliptocytes Not Reportable 02/02/22 20:36 Acanthocytes (Spur) Not Reportable 02/02/22 20:36 Rouleaux Not Reportable 02/02/22 20:36 Hemoglobin C Crystals Not Reportable 02/02/22 20:36 Schistocytes Not Reportable 02/02/22 20:36 Malaria parasites Not Reportable 02/02/22 20:36 Pedro Bodies Not Reportable 02/02/22 20:36 Hem Pathologist Commnt No 02/02/22 20:36 ABG pH 7.452 pH Units (7.350-7.450) H 02/02/22 22:25 ABG pCO2 36.5 mm Hg 02/02/22 22:25 ABG pO2 129.2 mm Hg (80.0-90.0) H 02/02/22 22:25 ABG HCO3 25.0 mmol/L (20.0-26.0) 02/02/22 22:25 ABG O2 Saturation 98.6 % (95.0-99.0) 02/02/22 22:25 ABG O2 Content 16.6 (0.0-44) 02/02/22 22:25 ABG Base Excess 1.2 mmol/L (-2.0-3.0) 02/02/22 22:25 ABG Hemoglobin 12.0 gm/dl (12.0-16.0) 02/02/22 22:25 ABG Carboxyhemoglobin 1.0 % (0.0-5.0) 02/02/22 22:25 ABG Methemoglobin 0.5 % (0.0-1.5) 02/02/22 22:25 Oxyhemoglobin 97.1 % (95.0-99.0) 02/02/22 22:25 FiO2 50 % 02/02/22 22:25 Sodium 134 mmol/L (137-145) L 02/06/22 04:50 Potassium 4.5 mmol/L (3.6-5.0) 02/06/22 04:50 Chloride 95.4 mmol/L (98-107) L 02/06/22 04:50 Carbon Dioxide 28 mmol/L (22-30) 02/06/22 04:50 Anion Gap 15 mmol/L 02/06/22 04:50 BUN 19 mg/dL (7-17) H 02/06/22 04:50 Creatinine 0.9 mg/dL (0.6-1.2) 02/06/22 04:50 Estimated GFR > 60 ml/min 02/06/22 04:50 BUN/Creatinine Ratio 21 % 02/06/22 04:50 Glucose 124 mg/dL (65-100) H 02/06/22 04:50 POC Glucose 224 mg/dL (70-105) H 02/06/22 07:32 Lactic Acid 1.60 mmol/L (0.7-2.0) 02/02/22 21:35 Calcium 8.9 mg/dL (8.4-10.2) 02/06/22 04:50 Magnesium 1.70 mg/dL (1.7-2.3) 02/02/22 20:36 Total Bilirubin 0.50 mg/dL (0.1-1.2) 02/02/22 20:36 AST 25 units/L (5-40) 02/02/22 20:36 ALT 23 units/L (7-56) 02/02/22 20:36 Alkaline Phosphatase 70 units/L (35-129) 02/02/22 20:36 Lactate Dehydrogenase 516 units/L (91-180) H 02/03/22 21:25 Troponin T < 0.010 ng/mL (0.00-0.029) 02/02/22 20:36 NT-Pro-B Natriuret Pep 34.27 pg/mL (0-900) 02/02/22 20:36 Total Protein 6.5 g/dL (6.3-8.2) 02/02/22 20:36 Albumin 4.0 g/dL (3.9-5) 02/02/22 20:36 Albumin/Globulin Ratio 1.6 % 02/02/22 20:36 Coronavirus (PCR) Negative (Negative) 02/03/22 Unknown Microbiology: Microbiology 02/02/22 21:35 Peripheral/Venous Blood Culture - Preliminary NO GROWTH AFTER 72 HOURS 02/02/22 21:35 Peripheral/Venous Blood Culture - Preliminary NO GROWTH AFTER 72 HOURS [place]/IV: Voiding Method Bedside Commode Active Medications - Current Medications Current Medications: Generic Name Dose Route Start Last Admin Trade Name Freq PRN Reason Stop Dose Admin Acetaminophen 650 mg 02/02/22 23:25 02/05/22 03:45 Acetaminophen 325 Mg Tab PO 650 mg Q4H PRN Administration Pain MILD(1-3)/Fever >100.5/WONG Azithromycin 500 mg 02/04/22 21:00 02/05/22 23:04 Azithromycin 250 Mg Tab PO 02/06/22 21:01 500 mg Q24H LEISA Administration Budesonide 0.5 mg 02/04/22 08:00 02/05/22 20:58 Budesonide 0.5 Mg/2 Ml Nebu IH 0.5 mg Q12HRT LEISA Administration Dextrose 50 ml 02/02/22 23:25 Dextrose 50% In Water (25gm) 50 Ml Syringe IV Q30MIN PRN Hypoglycemia Protocol Guaifenesin 10 ml 02/03/22 10:36 02/05/22 22:12 Guaifenesin Dm 200/20 Mg Oral Liqd 10 Ml PO 10 ml Q4H PRN Administration Cough Heparin Sodium (Porcine) 5,000 unit 02/03/22 06:00 02/06/22 05:12 Heparin 5,000 Unit/1 Ml Vial SUB-Q 5,000 unit Q8HR LEISA Administration Sodium Chloride 1,000 mls @ 125 mls/hr 02/02/22 23:30 02/03/22 10:51 Nacl 0.9% 1000 Ml IV 125 mls/hr DIRECT LEISA Administration Ceftriaxone Sodium 2 gm in 100 mls @ 200 mls/hr 02/02/22 23:45 02/06/22 00:06 Rocephin/Ns 2 Gm/100 Ml IV 02/07/22 00:14 Not Given Q24H LEISA Protocol Insulin Human Lispro 0 unit 02/03/22 07:30 02/06/22 08:59 Insulin Lispro 100 Unit/Ml SUB-Q 4 unit ACHS LEISA Administration Protocol Magnesium Hydroxide 30 ml 02/02/22 23:25 Magnesium Hydroxide (Mom) Oral Liqd Udc PO Q4H PRN Constipation Methylprednisolone Sodium Succinate 60 mg 02/03/22 12:00 02/06/22 05:11 Methylprednisolone Sod Succinate 125 Mg/2 Ml Inj IV 60 mg Q6HR LEISA Administration Morphine Sulfate 2 mg 02/02/22 23:25 02/04/22 17:31 Morphine 2 Mg/1 Ml Inj IV 2 mg Q4H PRN Administration Pain, Moderate (4-6) Ondansetron HCl 4 mg 02/02/22 23:25 Ondansetron 4 Mg/2 Ml Inj IV Q8H PRN Nausea And Vomiting Oxycodone/Acetaminophen 1 tab 02/02/22 23:09 02/05/22 22:12 Oxycodone /Acetaminophen 5-325mg Tab PO 1 tab Q6H PRN Administration Pain, Moderate (4-6) Sodium Chloride 10 ml 02/03/22 10:00 02/06/22 09:01 Sodium Chloride 0.9% 10 Ml Flush Syringe IV 10 ml BID LEISA Administration Sodium Chloride 10 ml 02/02/22 23:25 Sodium Chloride 0.9% 10 Ml Flush Syringe IV PRN PRN LINE FLUSH Nutrition/Malnutrition Assess - Dietary Evaluation Nutrition/Malnutrition Findings: Nutrition Notes Start: 02/03/22 11:29 Freq: Status: Active Protocol: Document 02/03/22 11:29 SHALOM (Rec: 02/03/22 11:38 SHALOM [id number]) Nutrition Notes Need for Assessment generated from: MD Order,Education Initial or Follow up Brief Note Current Diagnosis COPD,Diabetes,Sepsis, Hypertension,Respiratory Failure Other Pertinent Diagnosis CHF, Tachycardia, Pneumonia. Current Diet Cardiac/Consistent Carbohydrates Diet (since B ). Height 5 ft 10 in Weight 136.078 kg [place] Body Weight (kg) 68.18 BMI 43.0 Weight change and time frame None provided at admission. Weight Status Morbidly Obese Subjective/Other Information RD consult for nutrition education assessment. No reports available on Pt's PO intake of meals at the time , will assess at F/U. Pr is on a Non-Rebreather+, O2 saturation @ 95%, according to Physical Assessment History notes. Pt still in critical condition , not a candidate for Nutrition Education at the time, will assess feasibility on F/U. Percent of energy/protein needs met: Prescribed Cardiac/Consistent Carbohydrates Diet provides for energy/protein needs (1, 977 Kcal/86 g) during LOS. Nutrition Intervention Follow-Up By: 02/10/22 Additional Comments Nutrition education will be provided at F/U, if feasible. Continue monitoring food tolerance, %PO intake of meals , and BM.
--- NOTE | 2022-02-06 12:08 | Progress Note ---
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 02/06/2022: No significant change remain on 30 to 35% FiO2. Continue the steroids. 02/05/2022: Overall improved oxygen requirement has decreased to 15 L high flow nasal cannula at 30%. We will continue with high-dose steroids for now. Suspect has sleep apnea as well will require sleep studies etc. in the future 02/04/22: Continue High dose steroids until back on cannula and then can start to decrease. continue bid Pulmicort and Brovana. Daily net negative fluid state. Will continue to follow. COVID negative here. 1. Unable to find PFT's to support COPD diagnosis but apparently patient is a former smoker. Will place on BID Pulmicort and Brovana therapy as she is on Symbicort as an outpatient. 2. Will start High dose IV steroids as she responded well to this last time. 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 [facility] following. She needs therapy for her RA that should help with her ILD. Pulm at [facility] planning to start patient OFEV 3. Wean FiO2 for sats > 88% 4. If patient is producing sputum please send for cytology for PCP pneumonia. She is suppose to be on prophylactic therapy but could not tell me if she has been taking the medication or not. Will check LDH. To unstable for bronch at this time 5. Follow up COVID 6. Guarded Prognosis. Subjective Date of service: 02/06/22 Interval history: Patient sleeping noted to be snoring. No obvious respiratory difficulties. Remain on high flow nasal cannula at 15 L and 35% FiO2 Objective - Exam Narrative Exam: General appearance: Present: improving respiratory distress, well-nourished, morbid obese - EENT Eyes: Present: PERRL, EOM intact. Absent: scleral icterus ENT: hearing intact, clear oral mucosa, dentition normal - Neck Neck: Present: supple, normal ROM - Respiratory Respiratory effort: Increased work of breathing improved. No accessory muscle use Respiratory: bilateral: rales - Cardiovascular Rhythm: regular Heart Sounds: Present: S1 & S2. Absent: gallop, systolic murmur, diastolic murmur - Extremities Extremities: no ischemia, pulses intact, pulses symmetrical, No edema, normal temperature, normal color, Full ROM Peripheral Pulses: within normal limits - Abdominal General gastrointestinal: Present: soft, non-tender, non-distended, normal bowel sounds. Absent: mass - Integumentary Integumentary: Present: clear, warm, dry, normal turgor. Absent: rash - Musculoskeletal Musculoskeletal: strength equal bilaterally - Psychiatric Psychiatric: appropriate mood/affect, intact judgment & insight, memory intact, cooperative - Neurologic Neurologic: CNII-XII intact, no focal deficits, moves all extremities Vital Signs - 12hr 02/06/22 02/06/22 02/06/22 00:14 00:15 05:00 Temperature 98.1 F Pulse Rate 86 Respiratory 18 Rate Blood Pressure 133/75 [Right] O2 Sat by Pulse 97 97 95 Oximetry 02/06/22 10:15 Temperature Pulse Rate Respiratory Rate Blood Pressure [Right] O2 Sat by Pulse 97 Oximetry CBC and BMP: 02/06/22 04:50 02/06/22 04:50 ABG, PT/INR, D-dimer: ABG ABG pH 7.452 pH Units (7.350-7.450) H 02/02/22 22:25 ABG pCO2 36.5 mm Hg 02/02/22 22:25 ABG pO2 129.2 mm Hg (80.0-90.0) H 02/02/22 22:25 ABG O2 Saturation 98.6 % (95.0-99.0) 02/02/22 22:25 Abnormal lab findings: Abnormal Labs 02/02/22 02/02/22 02/02/22 20:36 20:36 22:25 WBC 13.6 H RDW 16.7 H Seg Neuts % (Manual) 75.0 H Lymphocytes % (Manual) 10.0 L Monocytes % (Manual) 10.0 H Seg Neutrophils # Man 10.2 H Monocytes # (Manual) 1.4 H ABG pH 7.452 H ABG pO2 129.2 H Sodium Chloride BUN Glucose 145 H POC Glucose Calcium Lactate Dehydrogenase 02/03/22 02/03/22 02/03/22 05:39 10:40 21:13 WBC RDW Seg Neuts % (Manual) Lymphocytes % (Manual) Monocytes % (Manual) Seg Neutrophils # Man Monocytes # (Manual) ABG pH ABG pO2 Sodium Chloride BUN Glucose 121 H POC Glucose 120 H 157 H Calcium Lactate Dehydrogenase 02/03/22 02/04/22 02/04/22 21:25 05:02 05:02 WBC RDW 16.3 H Seg Neuts % (Manual) Lymphocytes % (Manual) Monocytes % (Manual) Seg Neutrophils # Man Monocytes # (Manual) ABG pH ABG pO2 Sodium 135 L Chloride 97.2 L BUN Glucose 249 H POC Glucose Calcium 8.2 L Lactate Dehydrogenase 516 H 02/04/22 02/04/22 02/04/22 08:50 11:44 16:56 WBC RDW Seg Neuts % (Manual) Lymphocytes % (Manual) Monocytes % (Manual) Seg Neutrophils # Man Monocytes # (Manual) ABG pH ABG pO2 Sodium Chloride BUN Glucose POC Glucose 274 H 176 H 216 H Calcium Lactate Dehydrogenase 02/04/22 02/05/22 02/05/22 20:17 07:26 12:16 WBC RDW Seg Neuts % (Manual) Lymphocytes % (Manual) Monocytes % (Manual) Seg Neutrophils # Man Monocytes # (Manual) ABG pH ABG pO2 Sodium Chloride BUN Glucose POC Glucose 193 H 183 H 215 H Calcium Lactate Dehydrogenase 02/05/22 02/05/22 02/06/22 16:48 21:31 04:50 WBC 16.9 H RDW 16.7 H Seg Neuts % (Manual) Lymphocytes % (Manual) Monocytes % (Manual) Seg Neutrophils # Man Monocytes # (Manual) ABG pH ABG pO2 Sodium Chloride BUN Glucose POC Glucose 140 H 165 H Calcium Lactate Dehydrogenase 02/06/22 02/06/22 04:50 07:32 WBC RDW Seg Neuts % (Manual) Lymphocytes % (Manual) Monocytes % (Manual) Seg Neutrophils # Man Monocytes # (Manual) ABG pH ABG pO2 Sodium 134 L Chloride 95.4 L BUN 19 H Glucose 124 H POC Glucose 224 H Calcium Lactate Dehydrogenase
[2022-02-06] MEDS: BUDESONIDE 0.5 MG/2 ML NEBU IH SCH ×2 (12:37→20:26)
[2022-02-06] MEDS: diazePAM 5 MG TAB PO PRN ×2 (13:12→22:39)
[2022-02-06] MEDS: AZITHROMYCIN 250 MG TAB PO SCH (22:39)
[2022-02-06] MEDS: guaiFENesin DM 200/20 MG ORAL LIQD 10 ML PO PRN (22:40)
[2022-02-07] MEDS: methylPREDNISolone Sod Succinate 125 MG/2 ML INJ IV SCH ×4 (05:17→23:26)
[2022-02-07] MEDS: HEPARIN 5,000 UNIT/1 ML VIAL SUB-Q SCH ×3 (05:17→23:26)
--- NOTE | 2022-02-07 07:45 | Progress Note ---
Assessment and Plan Assessment and plan: 71-year-old [place] female with known history of CHF, diabetes mellitus, hypertension and COPD presenting to the emergency room today complaining of shortness of breath which has been ongoing for the past 2 days. Patient has also had some mild fever and chills at home. She denies any sick contacts and no recent travel. Denies any contact with anyone with COVID-19. Patient is vaccinated against COVID-19 however she has not received a booster shot. Patient denies any chest pain. Denies any headache or dizziness and denies any diaphoresis. Upon arrival in the emergency room patient was found to be tachycardic and hypoxic with O2 saturation of about 80%. She was initially on nonrebreather and subsequently placed on the BiPAP. Work-up in the emergency room today, lab reveals leukocytosis of 13. BNP of 34. All other labs were essentially within normal limits. Chest x-ray however reveals: Increased airspace opacities bilaterally in the lower lobes concerning for multifocal pneumonia. Patient has been commenced on empiric IV antibiotics. Past History Past Medical History: COPD, diabetes, heart failure, hypertension, other (H/O Asthma) Past Surgical History: cholecystectomy Social history: no significant social history Family history: no significant family history 02/03: Patient seen and examined chest x-ray reviewed, agree as noted above. 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 Has had multiple hospitalization for which wood room hand has recommended long-acting steroid taper and also a biopsy in the past. With a new diagnosis of RA most likely no biopsy will be needed. Nevertheless will refer to outpatient wood room hand which the patient follows with [facility] team. We will send sputum for cytology for PCP pneumonia. We will try to obtain all home medication to see if she is on prophylactic PCP therapy. Continue steroids as ordered by wood room hand and also BID Pulmicort and Brovana therapy. We will trial some diuresis and also consult cardiology to assist with management. 02/04: Patient seen and examined, clinically improving. On high flow at 45%. No worsening distress. Ok to transfer to Medical Floor with tele. Continue steroids. 02/05: Pulm input noted, o2 weaning down, today 15L 30% sating 98%, will monitor and wean further later today if she maintains. Continue IV steroids. 02/06: Patient remains on High flow now at 35% from 30% FIO2 due to destauration early this am. Will continue High flow. Continue IV steriods 02/07: Patient remains on high flow back down to 30% FiO2 with saturation 94%. No distress at this time. Leukocytosis improving this is likely the marginalization from her steroid. As documented by wood room hand patient will need a long taper on discharge. And will start weaning Converted to nasal cannula. I did restart her Lasix today which she takes at home. 1. Acute Hypoxic Respiratory Failure- Currently on BIPAP 2. Possible Rheumatoid ATHRITIS RELATED Interstitial Lung Disease 3. Sepsis 4. Diabetes Mellitus 5. RA 6. Possible acute on chronic diastolic congestive heart failure. 7. Morbid Obesity Plan: 1. Patient placed on empiric IV antibiotics. 2. Await culture results- Negative so far 3. Placed on sliding scale insulin. Monitor accuchek closely 4. Will Oxygen saturation greater than 92% . 5. Resume routine home medications. DVT Prophylaxis:SQ Heparin Code Status: Full Code The high probability of a clinically significant, sudden or life threatening deterioration of the [multiple] system(s) required my full and direct attention, intervention and personal management. The aggregate critical care time was [60] minutes. This time is in addition to time spent performing reported procedures but includes the following: [x] Data Review and interpretation [x] Patient assessment and monitoring of vital signs [x] Documentation [x] Medication orders and management History Interval history: Patient seen and examined improving significantly still on high flow but no increased work breathing, She for short-term increase of 35 FiO2 but now down to 30% satting 94% Hospitalist Physical - Physical exam Narrative exam: General appearance: Present: improving respiratory distress, well-nourished, morbid obese on high flow oxygen - EENT Eyes: Present: PERRL, EOM intact. Absent: scleral icterus ENT: hearing intact, clear oral mucosa, dentition normal - Neck Neck: Present: supple, normal ROM - Respiratory Respiratory effort: Increased work of breathing improved. No accessory muscle use Respiratory: bilateral: rales - Cardiovascular Rhythm: regular Heart Sounds: Present: S1 & S2. Absent: gallop, systolic murmur, diastolic murmur - Extremities Extremities: no ischemia, pulses intact, pulses symmetrical, No edema, normal temperature, normal color, Full ROM Peripheral Pulses: within normal limits - Abdominal General gastrointestinal: Present: soft, non-tender, non-distended, normal bowel sounds. Absent: mass - Integumentary Integumentary: Present: clear, warm, dry, normal turgor. Absent: rash - Musculoskeletal Musculoskeletal: strength equal bilaterally - Psychiatric Psychiatric: appropriate mood/affect, intact judgment & insight, memory intact, cooperative - Neurologic Neurologic: CNII-XII intact, no focal deficits, moves all extremities - Constitutional Vitals: Temp Pulse Resp BP Pulse Ox 97.4 F L 77 20 131/59 100 02/06/22 23:00 02/06/22 23:00 02/06/22 23:00 02/06/22 23:00 02/07/22 03:24 General appearance: Present: mild distress (On BIPAP), well-nourished, obese HEART Score - HEART Score Troponin: Troponin T < 0.010 ng/mL (0.00-0.029) 02/02/22 20:36 Results - Labs CBC & Chem 7: 02/07/22 05:18 02/07/22 05:18 Labs: Laboratory Last Values WBC 16.9 K/mm3 (4.5-11.0) H 02/06/22 04:50 RBC 3.79 M/mm3 (3.65-5.03) 02/06/22 04:50 Hgb 10.9 gm/dl (10.1-14.3) 02/06/22 04:50 Hct 32.6 % (30.3-42.9) 02/06/22 04:50 MCV 86 fl (79-97) 02/06/22 04:50 MCH 29 pg (28-32) 02/06/22 04:50 MCHC 33 % (30-34) 02/06/22 04:50 RDW 16.7 % (13.2-15.2) H 02/06/22 04:50 Plt Count 264 K/mm3 (140-440) 02/06/22 04:50 Add Manual Diff Complete 02/02/22 20:36 Total Counted 100 02/02/22 20:36 Seg Neuts % (Manual) 75.0 % (40.0-70.0) H 02/02/22 20:36 Band Neutrophils % 4.0 % 02/02/22 20:36 Lymphocytes % (Manual) 10.0 % (13.4-35.0) L 02/02/22 20:36 Reactive Lymphs % (Man) 0 % 02/02/22 20:36 Monocytes % (Manual) 10.0 % (0.0-7.3) H 02/02/22 20:36 Eosinophils % (Manual) 1.0 % (0.0-4.3) 02/02/22 20:36 Basophils % (Manual) 0 % (0.0-1.8) 02/02/22 20:36 Metamyelocytes % 0 % 02/02/22 20:36 Myelocytes % 0 % 02/02/22 20:36 Promyelocytes % 0 % 02/02/22 20:36 Blast Cells % 0 % 02/02/22 20:36 Nucleated RBC % Not Reportable 02/02/22 20:36 Seg Neutrophils # Man 10.2 K/mm3 (1.8-7.7) H 02/02/22 20:36 Band Neutrophils # 0.5 K/mm3 02/02/22 20:36 Lymphocytes # (Manual) 1.4 K/mm3 (1.2-5.4) 02/02/22 20:36 Abs React Lymphs (Man) 0.0 K/mm3 02/02/22 20:36 Monocytes # (Manual) 1.4 K/mm3 (0.0-0.8) H 02/02/22 20:36 Eosinophils # (Manual) 0.1 K/mm3 (0.0-0.4) 02/02/22 20:36 Basophils # (Manual) 0.0 K/mm3 (0.0-0.1) 02/02/22 20:36 Metamyelocytes # 0.0 K/mm3 02/02/22 20:36 Myelocytes # 0.0 K/mm3 02/02/22 20:36 Promyelocytes # 0.0 K/mm3 02/02/22 20:36 Blast Cells # 0.0 K/mm3 02/02/22 20:36 WBC Morphology Not Reportable 02/02/22 20:36 Hypersegmented Neuts Not Reportable 02/02/22 20:36 Hyposegmented Neuts Not Reportable 02/02/22 20:36 Hypogranular Neuts Not Reportable 02/02/22 20:36 Smudge Cells Not Reportable 02/02/22 20:36 Toxic Granulation Not Reportable 02/02/22 20:36 Toxic Vacuolation Not Reportable 02/02/22 20:36 Dohle Bodies Not Reportable 02/02/22 20:36 Pelger-Huet Anomaly Not Reportable 02/02/22 20:36 Kelli Rods Not Reportable 02/02/22 20:36 Platelet Estimate Consistent w auto 02/02/22 20:36 Clumped Platelets Not Reportable 02/02/22 20:36 Plt Clumps, EDTA Not Reportable 02/02/22 20:36 Large Platelets Not Reportable 02/02/22 20:36 Giant Platelets Not Reportable 02/02/22 20:36 Platelet Satelliting Not Reportable 02/02/22 20:36 Plt Morphology Comment Not Reportable 02/02/22 20:36 RBC Morphology Not Reportable 02/02/22 20:36 Dimorphic RBCs Not Reportable 02/02/22 20:36 Polychromasia Not Reportable 02/02/22 20:36 Hypochromasia Not Reportable 02/02/22 20:36 Poikilocytosis Not Reportable 02/02/22 20:36 Anisocytosis 1+ 02/02/22 20:36 Microcytosis Few 02/02/22 20:36 Macrocytosis Not Reportable 02/02/22 20:36 Spherocytes Not Reportable 02/02/22 20:36 Pappenheimer Bodies Not Reportable 02/02/22 20:36 Sickle Cells Not Reportable 02/02/22 20:36 Target Cells Not Reportable 02/02/22 20:36 Tear Drop Cells Not Reportable 02/02/22 20:36 Ovalocytes Not Reportable 02/02/22 20:36 Helmet Cells Not Reportable 02/02/22 20:36 [place] Bodies Not Reportable 02/02/22 20:36 [place] Rings Not Reportable 02/02/22 20:36 [place] Cells Not Reportable 02/02/22 20:36 Bite Cells Not Reportable 02/02/22 20:36 Crenated Cell Not Reportable 02/02/22 20:36 Elliptocytes Not Reportable 02/02/22 20:36 Acanthocytes (Spur) Not Reportable 02/02/22 20:36 Rouleaux Not Reportable 02/02/22 20:36 Hemoglobin C Crystals Not Reportable 02/02/22 20:36 Schistocytes Not Reportable 02/02/22 20:36 Malaria parasites Not Reportable 02/02/22 20:36 Pedro Bodies Not Reportable 02/02/22 20:36 Hem Pathologist Commnt No 02/02/22 20:36 ABG pH 7.452 pH Units (7.350-7.450) H 02/02/22 22:25 ABG pCO2 36.5 mm Hg 02/02/22 22:25 ABG pO2 129.2 mm Hg (80.0-90.0) H 02/02/22 22:25 ABG HCO3 25.0 mmol/L (20.0-26.0) 02/02/22 22:25 ABG O2 Saturation 98.6 % (95.0-99.0) 02/02/22 22: ABG O2 Content 16.6 (0.0-44) 02/02/22 22:25 ABG Base Excess 1.2 mmol/L (-2.0-3.0) 02/02/22 22:25 ABG Hemoglobin 12.0 gm/dl (12.0-16.0) 02/02/22 22:25 ABG Carboxyhemoglobin 1.0 % (0.0-5.0) 02/02/22 22:25 ABG Methemoglobin 0.5 % (0.0-1.5) 02/02/22 22:25 Oxyhemoglobin 97.1 % (95.0-99.0) 02/02/22 22:25 FiO2 50 % 02/02/22 22:25 Sodium 134 mmol/L (137-145) L 02/06/22 04:50 Potassium 4.5 mmol/L (3.6-5.0) 02/06/22 04:50 Chloride 95.4 mmol/L (98-107) L 02/06/22 04:50 Carbon Dioxide 28 mmol/L (22-30) 02/06/22 04:50 Anion Gap 15 mmol/L 02/06/22 04:50 BUN 19 mg/dL (7-17) H 02/06/22 04:50 Creatinine 0.9 mg/dL (0.6-1.2) 02/06/22 04:50 Estimated GFR > 60 ml/min 02/06/22 04:50 BUN/Creatinine Ratio 21 % 02/06/22 04:50 Glucose 124 mg/dL (65-100) H 02/06/22 04:50 POC Glucose 224 mg/dL (70-105) H 02/06/22 07:32 Lactic Acid 1.60 mmol/L (0.7-2.0) 02/02/22 21:35 Calcium 8.9 mg/dL (8.4-10.2) 02/06/22 04:50 Magnesium 1.70 mg/dL (1.7-2.3) 02/02/22 20:36 Total Bilirubin 0.50 mg/dL (0.1-1.2) 02/02/22 20:36 AST 25 units/L (5-40) 02/02/22 20:36 ALT 23 units/L (7-56) 02/02/22 20:36 Alkaline Phosphatase 70 units/L (35-129) 02/02/22 20:36 Lactate Dehydrogenase 516 units/L (91-180) H 02/03/22 21:25 Troponin T < 0.010 ng/mL (0.00-0.029) 02/02/22 20:36 NT-Pro-B Natriuret Pep 34.27 pg/mL (0-900) 02/02/22 20:36 Total Protein 6.5 g/dL (6.3-8.2) 02/02/22 20:36 Albumin 4.0 g/dL (3.9-5) 02/02/22 20:36 Albumin/Globulin Ratio 1.6 % 02/02/22 20:36 Coronavirus (PCR) Negative (Negative) 02/03/22 Unknown Microbiology: Microbiology 02/02/22 21:35 Peripheral/Venous Blood Culture - Preliminary NO GROWTH AFTER 4 DAYS 02/02/22 21:35 Peripheral/Venous Blood Culture - Preliminary NO GROWTH AFTER 4 DAYS [place]/IV: Voiding Method Bedside Commode Active Medications - Current Medications Current Medications: Generic Name Dose Route Start Last Admin Trade Name Freq PRN Reason Stop Dose Admin Acetaminophen 650 mg 02/02/22 23:25 02/05/22 03:45 Acetaminophen 325 Mg Tab PO 650 mg Q4H PRN Administration Pain MILD(1-3)/Fever >100.5/WONG Budesonide 0.5 mg 02/04/22 08:00 02/06/22 20:26 Budesonide 0.5 Mg/2 Ml Nebu IH Not Given Q12HRT LEISA Dextrose 50 ml 02/02/22 23:25 Dextrose 50% In Water (25gm) 50 Ml Syringe IV Q30MIN PRN Hypoglycemia Protocol Diazepam 5 mg 02/06/22 12:31 02/06/22 22:39 Diazepam 5 Mg Tab PO 5 mg Q8H PRN Administration Anxiety Guaifenesin 10 ml 02/03/22 10:36 02/06/22 22:40 Guaifenesin Dm 200/20 Mg Oral Liqd 10 Ml PO 10 ml Q4H PRN Administration Cough Heparin Sodium (Porcine) 5,000 unit 02/03/22 06:00 02/07/22 05:17 Heparin 5,000 Unit/1 Ml Vial SUB-Q 5,000 unit Q8HR LEISA Administration Sodium Chloride 1,000 mls @ 125 mls/hr 02/02/22 23:30 02/03/22 10:51 Nacl 0.9% 1000 Ml IV 125 mls/hr DIRECT LEISA Administration Insulin Human Lispro 0 unit 02/03/22 07:30 02/06/22 22:40 Insulin Lispro 100 Unit/Ml SUB-Q 3 unit ACHS LEISA Administration Protocol Magnesium Hydroxide 30 ml 02/02/22 23:25 Magnesium Hydroxide (Mom) Oral Liqd Udc PO Q4H PRN Constipation Methylprednisolone Sodium Succinate 60 mg 02/03/22 12:00 02/07/22 05:17 Methylprednisolone Sod Succinate 125 Mg/2 Ml Inj IV 60 mg Q6HR LEISA Administration Morphine Sulfate 2 mg 02/02/22 23:25 02/04/22 17:31 Morphine 2 Mg/1 Ml Inj IV 2 mg Q4H PRN Administration Pain, Moderate (4-6) Ondansetron HCl 4 mg 02/02/22 23:25 Ondansetron 4 Mg/2 Ml Inj IV Q8H PRN Nausea And Vomiting Oxycodone/Acetaminophen 1 tab 02/02/22 23:09 02/05/22 22:12 Oxycodone /Acetaminophen 5-325mg Tab PO 1 tab Q6H PRN Administration Pain, Moderate (4-6) Sodium Chloride 10 ml 02/03/22 10:00 02/06/22 22:40 Sodium Chloride 0.9% 10 Ml Flush Syringe IV 10 ml BID LEISA Administration Sodium Chloride 10 ml 02/02/22 23:25 Sodium Chloride 0.9% 10 Ml Flush Syringe IV PRN PRN LINE FLUSH Nutrition/Malnutrition Assess - Dietary Evaluation Nutrition/Malnutrition Findings: Nutrition Notes Start: 02/03/22 11:29 Freq: Status: Active Protocol: Document 02/03/22 11:29 SHALOM (Rec: 02/03/22 11:38 SHALOM [id number]) Nutrition Notes Need for Assessment generated from: MD Order,Education Initial or Follow up Brief Note Current Diagnosis COPD,Diabetes,Sepsis, Hypertension,Respiratory Failure Other Pertinent Diagnosis CHF, Tachycardia, Pneumonia. Current Diet Cardiac/Consistent Carbohydrates Diet (since B ). Height 5 ft 10 in Weight 136.078 kg [place] Body Weight (kg) 68.18 BMI 43.0 Weight change and time frame None provided at admission. Weight Status Morbidly Obese Subjective/Other Information RD consult for nutrition education assessment. No reports available on Pt's PO intake of meals at the time , will assess at F/U. Pr is on a Non-Rebreather+, O2 saturation @ 95%, according to Physical Assessment History notes. Pt still in critical condition , not a candidate for Nutrition Education at the time, will assess feasibility on F/U. Percent of energy/protein needs met: Prescribed Cardiac/Consistent Carbohydrates Diet provides for energy/protein needs (1, 977 Kcal/86 g) during LOS. Nutrition Intervention Follow-Up By: 02/10/22 Additional Comments Nutrition education will be provided at F/U, if feasible. Continue monitoring food tolerance, %PO intake of meals , and BM.
[2022-02-07 08:07] LABS: Blood Urea Nitrogen 19 mg/dL (7-17); Calcium 9.2 mg/dL (8.4-10.2); Hemolysis Index 4
[2022-02-07 08:08] LABS: BUN/Creatinine Ratio 27
[2022-02-07] MEDS: INSULIN LISPRO 100 UNIT/ML SUB-Q SCH ×4 (08:15→23:36)
[2022-02-07] MEDS: diazePAM 5 MG TAB PO PRN (08:22)
[2022-02-07 08:59] LABS: Hematocrit 32.1 % (30.3-42.9); Hemoglobin 10.5 gm/dl (10.1-14.3); Mean Corpuscular HGB Conc 33 % (30-34); Mean Corpuscular Volume 86 fl (79-97); Platelet Count 250 K/mm3 (140-440); Red Blood Count 3.74 M/mm3 (3.65-5.03); Red Cell Distribution Width 16.4 % (13.2-15.2)
[2022-02-07] MEDS: BUDESONIDE 0.5 MG/2 ML NEBU IH SCH ×2 (09:11→20:20)
[2022-02-07] MEDS ORDERED: NON-FORMULARY EACH (Budesonide/Formoterol Fumarate [Symbicort 160-4.5 Mcg Inhaler] 10.2 GM IH SCH (10:00)
--- NOTE | 2022-02-07 12:20 | Progress Note ---
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 02/07/22: Will give a dose of IV lasix this afternoon to see if this helps with volume and oxygen requirement. Continue steroids until off HFNC. Guarded prognosis. 02/04/22: Continue High dose steroids until back on cannula and then can start to decrease. continue bid Pulmicort and Brovana. Daily net negative fluid state. Will continue to follow. COVID negative here. 1. Unable to find PFT's to support COPD diagnosis but apparently patient is a former smoker. Will place on BID Pulmicort and Brovana therapy as she is on Symbicort as an outpatient. 2. Will start High dose IV steroids as she responded well to this last time. 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 Rheum at [facility] is following. She needs therapy for her RA that should help with her ILD. Pulm at [facility] planning to start patient OFEV 3. Wean FiO2 for sats > 88% 4. If patient is producing sputum please send for cytology for PCP pneumonia. She is suppose to be on prophylactic therapy but could not tell me if she has been taking the medication or not. Will check LDH. To unstable for bronch at this time 5. Follow up COVID 6. Guarded Prognosis. Subjective Date of service: 02/07/22 Interval history: 15 liters and 30%. Sat is 94. Still on High dose IV steroids. Fluid balance is still positive. Objective Vital Signs - 12hr 02/07/22 02/07/22 02/07/22 03:24 09:10 09:15 Pulse Rate [ 89 Anterior Bilateral Throughout] Respiratory 18 Rate [Anterior Bilateral Throughout] O2 Sat by Pulse 100 94 Oximetry CBC and BMP: 02/07/22 05:18 02/07/22 05:18 ABG, PT/INR, D-dimer: ABG ABG pH 7.452 pH Units (7.350-7.450) H 02/02/22 22:25 ABG pCO2 36.5 mm Hg 02/02/22 22:25 ABG pO2 129.2 mm Hg (80.0-90.0) H 02/02/22 22:25 ABG O2 Saturation 98.6 % (95.0-99.0) 02/02/22 22:25 Abnormal lab findings: Abnormal Labs 02/02/22 02/02/22 02/02/22 20:36 20:36 22:25 WBC 13.6 H RDW 16.7 H Seg Neuts % (Manual) 75.0 H Lymphocytes % (Manual) 10.0 L Monocytes % (Manual) 10.0 H Seg Neutrophils # Man 10.2 H Monocytes # (Manual) 1.4 H ABG pH 7.452 H ABG pO2 129.2 H Sodium Chloride BUN Glucose 145 H POC Glucose Calcium Lactate Dehydrogenase 02/03/22 02/03/22 02/03/22 05:39 10:40 21:13 WBC RDW Seg Neuts % (Manual) Lymphocytes % (Manual) Monocytes % (Manual) Seg Neutrophils # Man Monocytes # (Manual) ABG pH ABG pO2 Sodium Chloride BUN Glucose 121 H POC Glucose 120 H 157 H Calcium Lactate Dehydrogenase 02/03/22 02/04/22 02/04/22 21:25 05:02 05:02 WBC RDW 16.3 H Seg Neuts % (Manual) Lymphocytes % (Manual) Monocytes % (Manual) Seg Neutrophils # Man Monocytes # (Manual) ABG pH ABG pO2 Sodium 135 L Chloride 97.2 L BUN Glucose 249 H POC Glucose Calcium 8.2 L Lactate Dehydrogenase 516 H 02/04/22 02/04/22 02/04/22 08:50 11:44 16:56 WBC RDW Seg Neuts % (Manual) Lymphocytes % (Manual) Monocytes % (Manual) Seg Neutrophils # Man Monocytes # (Manual) ABG pH ABG pO2 Sodium Chloride BUN Glucose POC Glucose 274 H 176 H 216 H Calcium Lactate Dehydrogenase 02/04/22 02/05/22 02/05/22 20:17 07:26 12:16 WBC RDW Seg Neuts % (Manual) Lymphocytes % (Manual) Monocytes % (Manual) Seg Neutrophils # Man Monocytes # (Manual) ABG pH ABG pO2 Sodium Chloride BUN Glucose POC Glucose 193 H 183 H 215 H Calcium Lactate Dehydrogenase 02/05/22 02/05/22 02/06/22 16:48 21:31 04:50 WBC 16.9 H RDW 16.7 H Seg Neuts % (Manual) Lymphocytes % (Manual) Monocytes % (Manual) Seg Neutrophils # Man Monocytes # (Manual) ABG pH ABG pO2 Sodium Chloride BUN Glucose POC Glucose 140 H 165 H Calcium Lactate Dehydrogenase 02/06/22 02/06/22 02/07/22 04:50 07:32 05:18 WBC 14.7 H RDW 16.4 H Seg Neuts % (Manual) Lymphocytes % (Manual) Monocytes % (Manual) Seg Neutrophils # Man Monocytes # (Manual) ABG pH ABG pO2 Sodium 134 L Chloride 95.4 L BUN 19 H Glucose 124 H POC Glucose 224 H Calcium Lactate Dehydrogenase 02/07/22 02/07/22 02/07/22 05:18 07:44 11:37 WBC RDW Seg Neuts % (Manual) Lymphocytes % (Manual) Monocytes % (Manual) Seg Neutrophils # Man Monocytes # (Manual) ABG pH ABG pO2 Sodium Chloride BUN 19 H Glucose 116 H POC Glucose 142 H 139 H Calcium Lactate Dehydrogenase
[2022-02-07] MEDS: FUROSEMIDE 20 MG TAB PO SCH (12:57)
[2022-02-07] MEDS: SPIRONOLACTONE 25 MG TAB PO SCH (12:59)
[2022-02-07] MEDS ORDERED: FUROSEMIDE 40 MG/4 ML INJ IV SCH (15:00)
[2022-02-07] MEDS: ARFORMOTEROL 15 MCG/2 ML NEBU IH SCH (20:20)
[2022-02-07] MEDS: MORPHINE 2 MG/1 ML INJ IV PRN (23:27)
[2022-02-08 06:33] LABS: Hematocrit 34.5 % (30.3-42.9); Mean Corpuscular HGB Conc 32 % (30-34); Mean Corpuscular Volume 87 fl (79-97); Platelet Count 264 K/mm3 (140-440); Red Blood Count 3.98 M/mm3 (3.65-5.03); Red Cell Distribution Width 16.1 % (13.2-15.2)
[2022-02-08] MEDS: HEPARIN 5,000 UNIT/1 ML VIAL SUB-Q SCH ×3 (08:05→21:52)
[2022-02-08] MEDS: methylPREDNISolone Sod Succinate 125 MG/2 ML INJ IV SCH ×3 (08:09→19:31)
[2022-02-08] MEDS: ARFORMOTEROL 15 MCG/2 ML NEBU IH SCH ×2 (08:44→20:51)
[2022-02-08] MEDS: BUDESONIDE 0.5 MG/2 ML NEBU IH SCH ×2 (08:45→20:51)
[2022-02-08] MEDS: FUROSEMIDE 20 MG TAB PO SCH (09:18)
[2022-02-08] MEDS: SPIRONOLACTONE 25 MG TAB PO SCH (09:18)
[2022-02-08] MEDS: INSULIN LISPRO 100 UNIT/ML SUB-Q SCH ×3 (09:19→19:31)
--- NOTE | 2022-02-08 11:33 | Progress Note ---
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 02/08/22: Continue steroids. No lasix today. 02/07/22: Will give a dose of IV lasix this afternoon to see if this helps with volume and oxygen requirement. Continue steroids until off HFNC. Guarded prognosis. 02/04/22: Continue High dose steroids until back on cannula and then can start to decrease. continue bid Pulmicort and Brovana. Daily net negative fluid state. Will continue to follow. COVID negative here. 1. Unable to find PFT's to support COPD diagnosis but apparently patient is a former smoker. Will place on BID Pulmicort and Brovana therapy as she is on Symbicort as an outpatient. 2. Will start High dose IV steroids as she responded well to this last time. 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 Rheum at [facility] is following. She needs therapy for her RA that should help with her ILD. Pulm at [place] planning to start patient OFEV 3. Wean FiO2 for sats > 88% 4. If patient is producing sputum please send for cytology for PCP pneumonia. She is suppose to be on prophylactic therapy but could not tell me if she has been taking the medication or not. Will check LDH. To unstable for bronch at this time 5. Follow up COVID 6. Guarded Prognosis. Subjective Date of service: 02/08/22 Interval history: No acute events. Still on HFNC Objective Vital Signs - 12hr 02/08/22 02/08/22 03:05 05:14 Temperature 97.9 F Pulse Rate 76 Respiratory 18 Rate Blood Pressure 138/70 O2 Sat by Pulse 100 96 Oximetry CBC and BMP: 02/08/22 05:55 02/07/22 05:18 ABG, PT/INR, D-dimer: ABG ABG pH 7.452 pH Units (7.350-7.450) H 02/02/22 22:25 ABG pCO2 36.5 mm Hg 02/02/22 22:25 ABG pO2 129.2 mm Hg (80.0-90.0) H 02/02/22 22:25 ABG O2 Saturation 98.6 % (95.0-99.0) 02/02/22 22:25 Abnormal lab findings: Abnormal Labs 02/02/22 02/02/22 02/02/22 20:36 20:36 22:25 WBC 13.6 H RDW 16.7 H Seg Neuts % (Manual) 75.0 H Lymphocytes % (Manual) 10.0 L Monocytes % (Manual) 10.0 H Seg Neutrophils # Man 10.2 H Monocytes # (Manual) 1.4 H ABG pH 7.452 H ABG pO2 129.2 H Sodium Chloride BUN Glucose 145 H POC Glucose Calcium Lactate Dehydrogenase 02/03/22 02/03/22 02/03/22 05:39 10:40 21:13 WBC RDW Seg Neuts % (Manual) Lymphocytes % (Manual) Monocytes % (Manual) Seg Neutrophils # Man Monocytes # (Manual) ABG pH ABG pO2 Sodium Chloride BUN Glucose 121 H POC Glucose 120 H 157 H Calcium Lactate Dehydrogenase 02/03/22 02/04/22 02/04/22 21:25 05:02 05:02 WBC RDW 16.3 H Seg Neuts % (Manual) Lymphocytes % (Manual) Monocytes % (Manual) Seg Neutrophils # Man Monocytes # (Manual) ABG pH ABG pO2 Sodium 135 L Chloride 97.2 L BUN Glucose 249 H POC Glucose Calcium 8.2 L Lactate Dehydrogenase 516 H 02/04/22 02/04/22 02/04/22 08:50 11:44 16:56 WBC RDW Seg Neuts % (Manual) Lymphocytes % (Manual) Monocytes % (Manual) Seg Neutrophils # Man Monocytes # (Manual) ABG pH ABG pO2 Sodium Chloride BUN Glucose POC Glucose 274 H 176 H 216 H Calcium Lactate Dehydrogenase 02/04/22 02/05/22 02/05/22 20:17 07:26 12:16 WBC RDW Seg Neuts % (Manual) Lymphocytes % (Manual) Monocytes % (Manual) Seg Neutrophils # Man Monocytes # (Manual) ABG pH ABG pO2 Sodium Chloride BUN Glucose POC Glucose 193 H 183 H 215 H Calcium Lactate Dehydrogenase 02/05/22 02/05/22 02/06/22 16:48 21:31 04:50 WBC 16.9 H RDW 16.7 H Seg Neuts % (Manual) Lymphocytes % (Manual) Monocytes % (Manual) Seg Neutrophils # Man Monocytes # (Manual) ABG pH ABG pO2 Sodium Chloride BUN Glucose POC Glucose 140 H 165 H Calcium Lactate Dehydrogenase 02/06/22 02/06/22 02/06/22 04:50 07:32 12:01 WBC RDW Seg Neuts % (Manual) Lymphocytes % (Manual) Monocytes % (Manual) Seg Neutrophils # Man Monocytes # (Manual) ABG pH ABG pO2 Sodium 134 L Chloride 95.4 L BUN 19 H Glucose 124 H POC Glucose 224 H 197 H Calcium Lactate Dehydrogenase 02/06/22 02/06/22 02/07/22 16:35 21:40 05:18 WBC 14.7 H RDW 16.4 H Seg Neuts % (Manual) Lymphocytes % (Manual) Monocytes % (Manual) Seg Neutrophils # Man Monocytes # (Manual) ABG pH ABG pO2 Sodium Chloride BUN Glucose POC Glucose 143 H 162 H Calcium Lactate Dehydrogenase 02/07/22 02/07/22 02/07/22 05:18 07:44 11:37 WBC RDW Seg Neuts % (Manual) Lymphocytes % (Manual) Monocytes % (Manual) Seg Neutrophils # Man Monocytes # (Manual) ABG pH ABG pO2 Sodium Chloride BUN 19 H Glucose 116 H POC Glucose 142 H 139 H Calcium Lactate Dehydrogenase 02/07/22 02/07/22 02/08/22 16:54 22:30 05:55 WBC 13.3 H RDW 16.1 H Seg Neuts % (Manual) Lymphocytes % (Manual) Monocytes % (Manual) Seg Neutrophils # Man Monocytes # (Manual) ABG pH ABG pO2 Sodium Chloride BUN Glucose POC Glucose 140 H 263 H Calcium Lactate Dehydrogenase 02/08/22 07:26 WBC RDW Seg Neuts % (Manual) Lymphocytes % (Manual) Monocytes % (Manual) Seg Neutrophils # Man Monocytes # (Manual) ABG pH ABG pO2 Sodium Chloride BUN Glucose POC Glucose 129 H Calcium Lactate Dehydrogenase
[2022-02-08] MEDS: diazePAM 5 MG TAB PO PRN ×2 (13:55→21:53)
--- NOTE | 2022-02-08 17:38 | Progress Note ---
Assessment and Plan Assessment and plan: 02/03: Patient seen and examined chest x-ray reviewed, agree as noted above. 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 Has had multiple hospitalization for which box office agent has recommended long-acting steroid taper and also a biopsy in the past. With a new diagnosis of RA most likely no biopsy will be needed. Nevertheless will refer to outpatient box office agent which the patient follows with [facility] team. We will send sputum for cytology for PCP pneumonia. We will try to obtain all home medication to see if she is on prophylactic PCP therapy. Continue steroids as ordered by box office agent and also BID Pulmicort and Brovana therapy. We will trial some diuresis and also consult cardiology to assist with management. 02/04: Patient seen and examined, clinically improving. On high flow at 45%. No worsening distress. Ok to transfer to Medical Floor with tele. Continue steroids. 02/05: Pulm input noted, o2 weaning down, today 15L 30% sating 98%, will monitor and wean further later today if she maintains. Continue IV steroids. 02/06: Patient remains on High flow now at 35% from 30% FIO2 due to destauration early this am. Will continue High flow. Continue IV steriods 02/07: Patient remains on high flow back down to 30% FiO2 with saturation 94%. No distress at this time. Leukocytosis improving this is likely the marginalization from her steroid. As documented by box office agent patient will need a long taper on discharge. And will start weaning Converted to nasal cannula. I did restart her Lasix today which she takes at home. #Acute on chronic hypoxic respiratory failureimproving #Possible rheumatoid arthritis related interstitial lung disease - etiology: Likely related to her rheumatoid arthritis - baseline oxygen requirements: 3 L nasal cannula - supplemental oxygen: HFNC 12 L / 30% FiO2 - Continue protocol: continue pulse oximetry, wean oxygen as tolerated, ordered incentive spirometry and educated patient on how to use it and its importance. Continue Pulmicort 1 puff every 12 hours, Brovana 1 puff every 12 hours, and IV Solu-Medrol 60 mg every 6 hours Pulmonology consulted; appreciate recs. - continue to monitor #Sepsisresolved #Chronic diastolic heart failure Continue Lasix 40 mg daily and Aldactone 25 mg daily #Possible diabetes mellitus type 2 Pending hemoglobin A1c. Continue moderate SSI. #Rheumatoid arthritis Continue steroid administration and supportive care #Morbid obesity #Weight loss counseling #Exercise counseling - BMI 43 - Counseled patient on the importance of weight loss, incorporating exercise, and dietary changes (lean meats, fresh fruits and vegetables, and water intake). Patient expresses understanding. - Time: +15 min Critical Care Billing: The high probability of a clinically significant, sudden or life threatening deterioration of the [respiratory] system(s) required my full and direct attention, intervention and personal management. The aggregate critical care time was [60] minutes. This time is in addition to time spent performing reported procedures but includes the following: [x] Data Review and interpretation [x] Patient assessment and monitoring of vital signs [x] Documentation [x] Medication orders and management Disposition Plan: Continue medical management Total Time Spent with Patient (Minutes): 45 minutes History Interval history: No acute events overnight. Hospitalist Physical - Constitutional Vitals: Temp Pulse Resp BP Pulse Ox 98.0 F 74 18 128/61 93 02/08/22 16:34 02/08/22 16:34 02/08/22 16:34 02/08/22 16:34 02/08/22 16:34 General appearance: Present: no acute distress, well-nourished, obese - EENT Eyes: Present: PERRL, EOM intact ENT: hearing intact, clear oral mucosa, dentition normal - Neck Neck: Present: supple, normal ROM - Respiratory Respiratory effort: normal Respiratory: bilateral: diminished (On high flow nasal cannula 12 L / 30% FiO2) - Cardiovascular Rhythm: regular Heart Sounds: Present: S1 & S2 - Extremities Extremities: no ischemia, pulses intact, pulses symmetrical, No edema, normal temperature, normal color Peripheral Pulses: within normal limits - Abdominal General gastrointestinal: soft, non-tender, non-distended, normal bowel sounds - Integumentary Integumentary: Present: clear, warm, dry - Psychiatric Psychiatric: appropriate mood/affect, intact judgment & insight, cooperative - Neurologic Neurologic: CNII-XII intact, moves all extremities - Allied Health Allied health notes reviewed: nursing HEART Score - HEART Score Troponin: Troponin T < 0.010 ng/mL (0.00-0.029) 02/02/22 20:36 Results - Labs CBC & Chem 7: 02/08/22 05:55 02/07/22 05:18 Labs: Laboratory Last Values WBC 13.3 K/mm3 (4.5-11.0) H 02/08/22 05:55 RBC 3.98 M/mm3 (3.65-5.03) 02/08/22 05:55 Hgb 11.0 gm/dl (10.1-14.3) 02/08/22 05:55 Hct 34.5 % (30.3-42.9) 02/08/22 05:55 MCV 87 fl (79-97) 02/08/22 05:55 MCH 28 pg (28-32) 02/08/22 05:55 MCHC 32 % (30-34) 02/08/22 05:55 RDW 16.1 % (13.2-15.2) H 02/08/22 05:55 Plt Count 264 K/mm3 (140-440) 02/08/22 05:55 Add Manual Diff Complete 02/02/22 20:36 Total Counted 100 02/02/22 20:36 Seg Neuts % (Manual) 75.0 % (40.0-70.0) H 02/02/22 20:36 Band Neutrophils % 4.0 % 02/02/22 20:36 Lymphocytes % (Manual) 10.0 % (13.4-35.0) L 02/02/22 20:36 Reactive Lymphs % (Man) 0 % 02/02/22 20:36 Monocytes % (Manual) 10.0 % (0.0-7.3) H 02/02/22 20:36 Eosinophils % (Manual) 1.0 % (0.0-4.3) 02/02/22 20:36 Basophils % (Manual) 0 % (0.0-1.8) 02/02/22 20:36 Metamyelocytes % 0 % 02/02/22 20:36 Myelocytes % 0 % 02/02/22 20:36 Promyelocytes % 0 % 02/02/22 20:36 Blast Cells % 0 % 02/02/22 20:36 Nucleated RBC % Not Reportable 02/02/22 20:36 Seg Neutrophils # Man 10.2 K/mm3 (1.8-7.7) H 02/02/22 20:36 Band Neutrophils # 0.5 K/mm3 02/02/22 20:36 Lymphocytes # (Manual) 1.4 K/mm3 (1.2-5.4) 02/02/22 20:36 Abs React Lymphs (Man) 0.0 K/mm3 02/02/22 20:36 Monocytes # (Manual) 1.4 K/mm3 (0.0-0.8) H 02/02/22 20:36 Eosinophils # (Manual) 0.1 K/mm3 (0.0-0.4) 02/02/22 20:36 Basophils # (Manual) 0.0 K/mm3 (0.0-0.1) 02/02/22 20:36 Metamyelocytes # 0.0 K/mm3 02/02/22 20:36 Myelocytes # 0.0 K/mm3 02/02/22 20:36 Promyelocytes # 0.0 K/mm3 02/02/22 20:36 Blast Cells # 0.0 K/mm3 02/02/22 20:36 WBC Morphology Not Reportable 02/02/22 20:36 Hypersegmented Neuts Not Reportable 02/02/22 20:36 Hyposegmented Neuts Not Reportable 02/02/22 20:36 Hypogranular Neuts Not Reportable 02/02/22 20:36 Smudge Cells Not Reportable 02/02/22 20:36 Toxic Granulation Not Reportable 02/02/22 20:36 Toxic Vacuolation Not Reportable 02/02/22 20:36 Dohle Bodies Not Reportable 02/02/22 20:36 Pelger-Huet Anomaly Not Reportable 02/02/22 20:36 Kelli Rods Not Reportable 02/02/22 20:36 Platelet Estimate Consistent w auto 02/02/22 20:36 Clumped Platelets Not Reportable 02/02/22 20:36 Plt Clumps, EDTA Not Reportable 02/02/22 20:36 Large Platelets Not Reportable 02/02/22 20:36 Giant Platelets Not Reportable 02/02/22 20:36 Platelet Satelliting Not Reportable 02/02/22 20:36 Plt Morphology Comment Not Reportable 02/02/22 20:36 RBC Morphology Not Reportable 02/02/22 20:36 Dimorphic RBCs Not Reportable 02/02/22 20:36 Polychromasia Not Reportable 02/02/22 20:36 Hypochromasia Not Reportable 02/02/22 20:36 Poikilocytosis Not Reportable 02/02/22 20:36 Anisocytosis 1+ 02/02/22 20:36 Microcytosis Few 02/02/22 20:36 Macrocytosis Not Reportable 02/02/22 20:36 Spherocytes Not Reportable 02/02/22 20:36 Pappenheimer Bodies Not Reportable 02/02/22 20:36 Sickle Cells Not Reportable 02/02/22 20:36 Target Cells Not Reportable 02/02/22 20:36 Tear Drop Cells Not Reportable 02/02/22 20:36 Ovalocytes Not Reportable 02/02/22 20:36 Helmet Cells Not Reportable 02/02/22 20:36 [place] Bodies Not Reportable 02/02/22 20:36 [place] Rings Not Reportable 02/02/22 20:36 [place] Cells Not Reportable 02/02/22 20:36 Bite Cells Not Reportable 02/02/22 20:36 Crenated Cell Not Reportable 02/02/22 20:36 Elliptocytes Not Reportable 02/02/22 20:36 Acanthocytes (Spur) Not Reportable 02/02/22 20:36 Rouleaux Not Reportable 02/02/22 20:36 Hemoglobin C Crystals Not Reportable 02/02/22 20:36 Schistocytes Not Reportable 02/02/22 20:36 Malaria parasites Not Reportable 02/02/22 20:36 Pedro Bodies Not Reportable 02/02/22 20:36 Hem Pathologist Commnt No 02/02/22 20:36 ABG pH 7.452 pH Units (7.350-7.450) H 02/02/22 22:25 ABG pCO2 36.5 mm Hg 02/02/22 22:25 ABG pO2 129.2 mm Hg (80.0-90.0) H 02/02/22 22:25 ABG HCO3 25.0 mmol/L (20.0-26.0) 02/02/22 22:25 ABG O2 Saturation 98.6 % (95.0-99.0) 02/02/22 22:25 ABG O2 Content 16.6 (0.0-44) 02/02/22 22:25 ABG Base Excess 1.2 mmol/L (-2.0-3.0) 02/02/22 22:25 ABG Hemoglobin 12.0 gm/dl (12.0-16.0) 02/02/22 22:25 ABG Carboxyhemoglobin 1.0 % (0.0-5.0) 02/02/22 22:25 ABG Methemoglobin 0.5 % (0.0-1.5) 02/02/22 22:25 Oxyhemoglobin 97.1 % (95.0-99.0) 02/02/22 22:25 FiO2 50 % 02/02/22 22:25 Sodium 141 mmol/L (137-145) D 02/07/22 05:18 Potassium 4.7 mmol/L (3.6-5.0) 02/07/22 05:18 Chloride 101.4 mmol/L (98-107) 02/07/22 05:18 Carbon Dioxide 27 mmol/L (22-30) 02/07/22 05:18 Anion Gap 17 mmol/L 02/07/22 05:18 BUN 19 mg/dL (7-17) H 02/07/22 05:18 Creatinine 0.7 mg/dL (0.6-1.2) 02/07/22 05:18 Estimated GFR > 60 ml/min 02/07/22 05:18 BUN/Creatinine Ratio 27 % 02/07/22 05:18 Glucose 116 mg/dL (65-100) H 02/07/22 05:18 POC Glucose 190 mg/dL (70-105) H 02/08/22 11:40 Lactic Acid 1.60 mmol/L (0.7-2.0) 02/02/22 21:35 Calcium 9.2 mg/dL (8.4-10.2) 02/07/22 05:18 Magnesium 1.70 mg/dL (1.7-2.3) 02/02/22 20:36 Total Bilirubin 0.50 mg/dL (0.1-1.2) 02/02/22 20:36 AST 25 units/L (5-40) 02/02/22 20:36 ALT 23 units/L (7-56) 02/02/22 20:36 Alkaline Phosphatase 70 units/L (35-129) 02/02/22 20:36 Lactate Dehydrogenase 516 units/L (91-180) H 02/03/22 21:25 Troponin T < 0.010 ng/mL (0.00-0.029) 02/02/22 20:36 NT-Pro-B Natriuret Pep 34.27 pg/mL (0-900) 02/02/22 20:36 Total Protein 6.5 g/dL (6.3-8.2) 02/02/22 20:36 Albumin 4.0 g/dL (3.9-5) 02/02/22 20:36 Albumin/Globulin Ratio 1.6 % 02/02/22 20:36 Coronavirus (PCR) Negative (Negative) 02/03/22 Unknown Microbiology: Microbiology 02/02/22 21:35 Peripheral/Venous Blood Culture - Final NO GROWTH AFTER 5 DAYS 02/02/22 21:35 Peripheral/Venous Blood Culture - Final NO GROWTH AFTER 5 DAYS [place]/IV: Voiding Method Bedside Commode Active Medications - Current Medications Current Medications: Generic Name Dose Route Start Last Admin Trade Name Freq PRN Reason Stop Dose Admin Acetaminophen 650 mg 02/02/22 23:25 02/05/22 03:45 Acetaminophen 325 Mg Tab PO 650 mg Q4H PRN Administration Pain MILD(1-3)/Fever >100.5/WONG Arformoterol Tartrate 15 mcg 02/07/22 20:00 02/08/22 08:44 Arformoterol 15 Mcg/2 Ml Nebu IH 15 mcg Q12HRT LEISA Administration Budesonide 0.5 mg 02/04/22 08:00 02/08/22 08:45 Budesonide 0.5 Mg/2 Ml Nebu IH 0.5 mg Q12HRT LEISA Administration Dextrose 50 ml 02/02/22 23:25 Dextrose 50% In Water (25gm) 50 Ml Syringe IV Q30MIN PRN Hypoglycemia Protocol Diazepam 5 mg 02/06/22 12:31 02/08/22 13:55 Diazepam 5 Mg Tab PO 5 mg Q8H PRN Administration Anxiety Furosemide 40 mg 02/07/22 11:00 02/08/22 09:18 Furosemide 20 Mg Tab PO 40 mg QDAY LEISA Administration Guaifenesin 10 ml 02/03/22 10:36 02/06/22 22:40 Guaifenesin Dm 200/20 Mg Oral Liqd 10 Ml PO 10 ml Q4H PRN Administration Cough Heparin Sodium (Porcine) 5,000 unit 02/03/22 06:00 02/08/22 13:55 Heparin 5,000 Unit/1 Ml Vial SUB-Q 5,000 unit Q8HR LEISA Administration Sodium Chloride 1,000 mls @ 125 mls/hr 02/02/22 23:30 02/03/22 10:51 Nacl 0.9% 1000 Ml IV 125 mls/hr DIRECT LEISA Administration Insulin Human Lispro 0 unit 02/03/22 07:30 02/08/22 13:54 Insulin Lispro 100 Unit/Ml SUB-Q 3 unit ACHS LEISA Administration Protocol Magnesium Hydroxide 30 ml 02/02/22 23:25 Magnesium Hydroxide (Mom) Oral Liqd Udc PO Q4H PRN Constipation Methylprednisolone Sodium Succinate 60 mg 02/03/22 12:00 02/08/22 13:54 Methylprednisolone Sod Succinate 125 Mg/2 Ml Inj IV 60 mg Q6HR LEISA Administration Morphine Sulfate 2 mg 02/02/22 23:25 02/07/22 23:27 Morphine 2 Mg/1 Ml Inj IV 2 mg Q4H PRN Administration Pain, Moderate (4-6) Ondansetron HCl 4 mg 02/02/22 23:25 Ondansetron 4 Mg/2 Ml Inj IV Q8H PRN Nausea And Vomiting Oxycodone/Acetaminophen 1 tab 02/02/22 23:09 02/05/22 22:12 Oxycodone /Acetaminophen 5-325mg Tab PO 1 tab Q6H PRN Administration Pain, Moderate (4-6) Sodium Chloride 10 ml 02/03/22 10:00 02/08/22 09:20 Sodium Chloride 0.9% 10 Ml Flush Syringe IV 10 ml BID LEISA Administration Sodium Chloride 10 ml 02/02/22 23:25 02/07/22 13:00 Sodium Chloride 0.9% 10 Ml Flush Syringe IV 10 ml PRN PRN Administration LINE FLUSH Spironolactone 25 mg 02/07/22 11:00 02/08/22 09:18 Spironolactone 25 Mg Tab PO 25 mg QDAY LEISA Administration Nutrition/Malnutrition Assess - Dietary Evaluation Nutrition/Malnutrition Findings: Nutrition Notes Start: 02/03/22 11:29 Freq: Status: Active Protocol: Document 02/03/22 11:29 SHALOM (Rec: 02/03/22 11:38 SHALOM [email or web address]) Nutrition Notes Need for Assessment generated from: MD Order,Education Initial or Follow up Brief Note Current Diagnosis COPD,Diabetes,Sepsis, Hypertension,Respiratory Failure Other Pertinent Diagnosis CHF, Tachycardia, Pneumonia. Current Diet Cardiac/Consistent Carbohydrates Diet (since B ). Height 5 ft 10 in Weight 136.078 kg [place] Body Weight (kg) 68.18 BMI 43.0 Weight change and time frame None provided at admission. Weight Status Morbidly Obese Subjective/Other Information RD consult for nutrition education assessment. No reports available on Pt's PO intake of meals at the time , will assess at F/U. Pr is on a Non-Rebreather+, O2 saturation @ 95%, according to Physical Assessment History notes. Pt still in critical condition , not a candidate for Nutrition Education at the time, will assess feasibility on F/U. Percent of energy/protein needs met: Prescribed Cardiac/Consistent Carbohydrates Diet provides for energy/protein needs (1, 977 Kcal/86 g) during LOS. Nutrition Intervention Follow-Up By: 02/10/22 Additional Comments Nutrition education will be provided at F/U, if feasible. Continue monitoring food tolerance, %PO intake of meals , and BM.
[2022-02-09] MEDS: INSULIN LISPRO 100 UNIT/ML SUB-Q SCH ×2 (00:31→09:12)
[2022-02-09] MEDS: methylPREDNISolone Sod Succinate 125 MG/2 ML INJ IV SCH ×4 (00:31→17:44)
[2022-02-09] MEDS: diazePAM 5 MG TAB PO PRN ×2 (06:30→18:46)
[2022-02-09] MEDS: HEPARIN 5,000 UNIT/1 ML VIAL SUB-Q SCH ×3 (06:31→21:56)
[2022-02-09] MEDS: BUDESONIDE 0.5 MG/2 ML NEBU IH SCH ×2 (08:18→20:28)
[2022-02-09] MEDS: ARFORMOTEROL 15 MCG/2 ML NEBU IH SCH ×2 (08:19→20:28)
[2022-02-09] MEDS: SPIRONOLACTONE 25 MG TAB PO SCH (09:11)
[2022-02-09] MEDS: INSULIN NPH/REGULAR 70/30 INJ SUB-Q SCH ×2 (09:11→17:44)
[2022-02-09] MEDS: FUROSEMIDE 20 MG TAB PO SCH (09:11)
[2022-02-09] MEDS: INSULIN REGULAR, HUMAN 100 UNITS/1 ML SUB-Q SCH ×3 (12:41→22:04)
--- NOTE | 2022-02-09 12:55 | Progress Note ---
Assessment and Plan Assessment and plan: 02/03: Patient seen and examined chest x-ray reviewed, agree as noted above. 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 Has had multiple hospitalization for which aging room operator has recommended long-acting steroid taper and also a biopsy in the past. With a new diagnosis of RA most likely no biopsy will be needed. Nevertheless will refer to outpatient aging room operator which the patient follows with [facility] team. We will send sputum for cytology for PCP pneumonia. We will try to obtain all home medication to see if she is on prophylactic PCP therapy. Continue steroids as ordered by aging room operator and also BID Pulmicort and Brovana therapy. We will trial some diuresis and also consult cardiology to assist with management. 02/04: Patient seen and examined, clinically improving. On high flow at 45%. No worsening distress. Ok to transfer to Medical Floor with tele. Continue steroids. 02/05: Pulm input noted, o2 weaning down, today 15L 30% sating 98%, will monitor and wean further later today if she maintains. Continue IV steroids. 02/06: Patient remains on High flow now at 35% from 30% FIO2 due to destauration early this am. Will continue High flow. Continue IV steriods 02/07: Patient remains on high flow back down to 30% FiO2 with saturation 94%. No distress at this time. Leukocytosis improving this is likely the marginalization from her steroid. As documented by aging room operator patient will need a long taper on discharge. And will start weaning Converted to nasal cannula. I did restart her Lasix today which she takes at home. #Acute on chronic hypoxic respiratory failureimproving #Possible rheumatoid arthritis related interstitial lung disease - etiology: Likely related to her rheumatoid arthritis - baseline oxygen requirements: 3 L nasal cannula - supplemental oxygen: 6 L nasal cannula - Continue protocol: continue pulse oximetry, wean oxygen as tolerated, ordered incentive spirometry and educated patient on how to use it and its importance. Continue Pulmicort 1 puff every 12 hours, Brovana 1 puff every 12 hours, and IV Solu-Medrol 60 mg every 6 hours Pulmonology consulted; appreciate recs. - continue to monitor #Sepsisresolved #Chronic diastolic heart failure Continue Lasix 40 mg daily and Aldactone 25 mg daily #Possible diabetes mellitus type 2 Pending hemoglobin A1c. Continue moderate SSI. #Rheumatoid arthritis Continue steroid administration and supportive care #Morbid obesity #Weight loss counseling #Exercise counseling - BMI 43 - Counseled patient on the importance of weight loss, incorporating exercise, and dietary changes (lean meats, fresh fruits and vegetables, and water intake). Patient expresses understanding. - Time: +15 min #Advanced care planning -Disease education conducted, care plan discussed, diagnoses discussed, pro gnosis discussed, and patient acknowledges understanding with care plan -Time: +30 min #Discharge planning - Patient is pending 24 hours maintaining only nasal cannula for oxygen supplementation. - Case management has been made aware. - Discharge is tentatively 02/10/2022. Disposition Plan: Possible discharge home tomorrow Total Time Spent with Patient (Minutes): 45 minutes History Interval history: No acute events overnight. Hospitalist Physical - Constitutional Vitals: Temp Pulse Resp BP Pulse Ox 97.4 F L 88 16 124/67 94 02/09/22 11:54 02/09/22 11:52 02/09/22 11:52 02/09/22 11:52 02/09/22 12:50 General appearance: Present: no acute distress, well-nourished, obese - EENT Eyes: Present: PERRL, EOM intact ENT: hearing intact, clear oral mucosa, dentition normal - Neck Neck: Present: supple, normal ROM - Respiratory Respiratory effort: normal Respiratory: bilateral: diminished (6 L nasal cannula) - Cardiovascular Rhythm: regular Heart Sounds: Present: S1 & S2 - Extremities Extremities: no ischemia, pulses intact, pulses symmetrical, No edema, normal temperature, normal color Peripheral Pulses: within normal limits - Abdominal General gastrointestinal: soft, non-tender, non-distended, normal bowel sounds - Integumentary Integumentary: Present: clear, warm, dry - Psychiatric Psychiatric: appropriate mood/affect, intact judgment & insight, cooperative - Neurologic Neurologic: CNII-XII intact, moves all extremities - Allied Health Allied health notes reviewed: nursing HEART Score - HEART Score Troponin: Troponin T < 0.010 ng/mL (0.00-0.029) 02/02/22 20:36 Results - Labs CBC & Chem 7: 02/08/22 05:55 02/07/22 05:18 Labs: Laboratory Last Values WBC 13.3 K/mm3 (4.5-11.0) H 02/08/22 05:55 RBC 3.98 M/mm3 (3.65-5.03) 02/08/22 05:55 Hgb 11.0 gm/dl (10.1-14.3) 02/08/22 05:55 Hct 34.5 % (30.3-42.9) 02/08/22 05:55 MCV 87 fl (79-97) 02/08/22 05:55 MCH 28 pg (28-32) 02/08/22 05:55 MCHC 32 % (30-34) 02/08/22 05:55 RDW 16.1 % (13.2-15.2) H 02/08/22 05:55 Plt Count 264 K/mm3 (140-440) 02/08/22 05:55 Add Manual Diff Complete 02/02/22 20:36 Total Counted 100 02/02/22 20:36 Seg Neuts % (Manual) 75.0 % (40.0-70.0) H 02/02/22 20:36 Band Neutrophils % 4.0 % 02/02/22 20:36 Lymphocytes % (Manual) 10.0 % (13.4-35.0) L 02/02/22 20:36 Reactive Lymphs % (Man) 0 % 02/02/22 20:36 Monocytes % (Manual) 10.0 % (0.0-7.3) H 02/02/22 20:36 Eosinophils % (Manual) 1.0 % (0.0-4.3) 02/02/22 20:36 Basophils % (Manual) 0 % (0.0-1.8) 02/02/22 20:36 Metamyelocytes % 0 % 02/02/22 20:36 Myelocytes % 0 % 02/02/22 20:36 Promyelocytes % 0 % 02/02/22 20:36 Blast Cells % 0 % 02/02/22 20:36 Nucleated RBC % Not Reportable 02/02/22 20:36 Seg Neutrophils # Man 10.2 K/mm3 (1.8-7.7) H 02/02/22 20:36 Band Neutrophils # 0.5 K/mm3 02/02/22 20:36 Lymphocytes # (Manual) 1.4 K/mm3 (1.2-5.4) 02/02/22 20:36 Abs React Lymphs (Man) 0.0 K/mm3 02/02/22 20:36 Monocytes # (Manual) 1.4 K/mm3 (0.0-0.8) H 02/02/22 20:36 Eosinophils # (Manual) 0.1 K/mm3 (0.0-0.4) 02/02/22 20:36 Basophils # (Manual) 0.0 K/mm3 (0.0-0.1) 02/02/22 20:36 Metamyelocytes # 0.0 K/mm3 02/02/22 20:36 Myelocytes # 0.0 K/mm3 02/02/22 20:36 Promyelocytes # 0.0 K/mm3 02/02/22 20:36 Blast Cells # 0.0 K/mm3 02/02/22 20:36 WBC Morphology Not Reportable 02/02/22 20:36 Hypersegmented Neuts Not Reportable 02/02/22 20:36 Hyposegmented Neuts Not Reportable 02/02/22 20:36 Hypogranular Neuts Not Reportable 02/02/22 20:36 Smudge Cells Not Reportable 02/02/22 20:36 Toxic Granulation Not Reportable 02/02/22 20:36 Toxic Vacuolation Not Reportable 02/02/22 20:36 Dohle Bodies Not Reportable 02/02/22 20:36 Pelger-Huet Anomaly Not Reportable 02/02/22 20:36 Kelli Rods Not Reportable 02/02/22 20:36 Platelet Estimate Consistent w auto 02/02/22 20:36 Clumped Platelets Not Reportable 02/02/22 20:36 Plt Clumps, EDTA Not Reportable 02/02/22 20:36 Large Platelets Not Reportable 02/02/22 20:36 Giant Platelets Not Reportable 02/02/22 20:36 Platelet Satelliting Not Reportable 02/02/22 20:36 Plt Morphology Comment Not Reportable 02/02/22 20:36 RBC Morphology Not Reportable 02/02/22 20:36 Dimorphic RBCs Not Reportable 02/02/22 20:36 Polychromasia Not Reportable 02/02/22 20:36 Hypochromasia Not Reportable 02/02/22 20:36 Poikilocytosis Not Reportable 02/02/22 20:36 Anisocytosis 1+ 02/02/22 20:36 Microcytosis Few 02/02/22 20:36 Macrocytosis Not Reportable 02/02/22 20:36 Spherocytes Not Reportable 02/02/22 20:36 Pappenheimer Bodies Not Reportable 02/02/22 20:36 Sickle Cells Not Reportable 02/02/22 20:36 Target Cells Not Reportable 02/02/22 20:36 Tear Drop Cells Not Reportable 02/02/22 20:36 Ovalocytes Not Reportable 02/02/22 20:36 Helmet Cells Not Reportable 02/02/22 20:36 Pendleton-Penrose Bodies Not Reportable 02/02/22 20:36 [place] Rings Not Reportable 02/02/22 20:36 Ariela Cells Not Reportable 02/02/22 20:36 Bite Cells Not Reportable 02/02/22 20:36 Crenated Cell Not Reportable 02/02/22 20:36 Elliptocytes Not Reportable 02/02/22 20:36 Acanthocytes (Spur) Not Reportable 02/02/22 20:36 Rouleaux Not Reportable 02/02/22 20:36 Hemoglobin C Crystals Not Reportable 02/02/22 20:36 Schistocytes Not Reportable 02/02/22 20:36 Malaria parasites Not Reportable 02/02/22 20:36 Pedro Bodies Not Reportable 02/02/22 20:36 Hem Pathologist Commnt No 02/02/22 20:36 ABG pH 7.452 pH Units (7.350-7.450) H 02/02/22 22:25 ABG pCO2 36.5 mm Hg 02/02/22 22:25 ABG pO2 129.2 mm Hg (80.0-90.0) H 02/02/22 22:25 ABG HCO3 25.0 mmol/L (20.0-26.0) 02/02/22 22:25 ABG O2 Saturation 98.6 % (95.0-99.0) 02/02/22 22:25 ABG O2 Content 16.6 (0.0-44) 02/02/22 22:25 ABG Base Excess 1.2 mmol/L (-2.0-3.0) 02/02/22 22:25 ABG Hemoglobin 12.0 gm/dl (12.0-16.0) 02/02/22 22:25 ABG Carboxyhemoglobin 1.0 % (0.0-5.0) 02/02/22 22:25 ABG Methemoglobin 0.5 % (0.0-1.5) 02/02/22 22:25 Oxyhemoglobin 97.1 % (95.0-99.0) 02/02/22 22:25 FiO2 50 % 02/02/22 22:25 Sodium 141 mmol/L (137-145) D 02/07/22 05:18 Potassium 4.7 mmol/L (3.6-5.0) 02/07/22 05:18 Chloride 101.4 mmol/L (98-107) 02/07/22 05:18 Carbon Dioxide 27 mmol/L (22-30) 02/07/22 05:18 Anion Gap 17 mmol/L 02/07/22 05:18 BUN 19 mg/dL (7-17) H 02/07/22 05:18 Creatinine 0.7 mg/dL (0.6-1.2) 02/07/22 05:18 Estimated GFR > 60 ml/min 02/07/22 05:18 BUN/Creatinine Ratio 27 % 02/07/22 05:18 Glucose 116 mg/dL (65-100) H 02/07/22 05:18 POC Glucose 297 mg/dL (70-105) H 02/09/22 11:47 Hemoglobin A1c 7.0 % (4-6) H 02/09/22 05:25 Lactic Acid 1.60 mmol/L (0.7-2.0) 02/02/22 21:35 Calcium 9.2 mg/dL (8.4-10.2) 02/07/22 05:18 Magnesium 1.70 mg/dL (1.7-2.3) 02/02/22 20:36 Total Bilirubin 0.50 mg/dL (0.1-1.2) 02/02/22 20:36 AST 25 units/L (5-40) 02/02/22 20:36 ALT 23 units/L (7-56) 02/02/22 20:36 Alkaline Phosphatase 70 units/L (35-129) 02/02/22 20:36 Lactate Dehydrogenase 516 units/L (91-180) H 02/03/22 21:25 Troponin T < 0.010 ng/mL (0.00-0.029) 02/02/22 20:36 NT-Pro-B Natriuret Pep 34.27 pg/mL (0-900) 02/02/22 20:36 Total Protein 6.5 g/dL (6.3-8.2) 02/02/22 20:36 Albumin 4.0 g/dL (3.9-5) 02/02/22 20:36 Albumin/Globulin Ratio 1.6 % 02/02/22 20:36 Coronavirus (PCR) Negative (Negative) 02/03/22 Unknown [place]/IV: Voiding Method Bedside Commode Active Medications - Current Medications Current Medications: Generic Name Dose Route Start Last Admin Trade Name Freq PRN Reason Stop Dose Admin Acetaminophen 650 mg 02/02/22 23:25 02/05/22 03:45 Acetaminophen 325 Mg Tab PO 650 mg Q4H PRN Administration Pain MILD(1-3)/Fever >100.5/WONG Arformoterol Tartrate 15 mcg 02/07/22 20:00 02/09/22 08:19 Arformoterol 15 Mcg/2 Ml Nebu IH 15 mcg Q12HRT LEISA Administration Budesonide 0.5 mg 02/04/22 08:00 02/09/22 08:18 Budesonide 0.5 Mg/2 Ml Nebu IH 0.5 mg Q12HRT LEISA Administration Dextrose 50 ml 02/02/22 23:25 Dextrose 50% In Water (25gm) 50 Ml Syringe IV Q30MIN PRN Hypoglycemia Protocol Diazepam 5 mg 02/06/22 12:31 02/09/22 06:30 Diazepam 5 Mg Tab PO 5 mg Q8H PRN Administration Anxiety Furosemide 40 mg 02/07/22 11:00 02/09/22 09:11 Furosemide 20 Mg Tab PO 40 mg QDAY ELISA Administration Guaifenesin 10 ml 02/03/22 10:36 02/06/22 22:40 Guaifenesin Dm 200/20 Mg Oral Liqd 10 Ml PO 10 ml Q4H PRN Administration Cough Heparin Sodium (Porcine) 5,000 unit 02/03/22 06:00 02/09/22 06:31 Heparin 5,000 Unit/1 Ml Vial SUB-Q 5,000 unit Q8HR LEISA Administration Insulin Human Isoph/Insulin Regular 5 unit 02/09/22 08:30 02/09/22 09:11 Insulin Nph/Regular 70/30 Inj SUB-Q 5 unit BIDDIAB LEISA Administration Insulin Human Regular 0 units 02/09/22 11:30 02/09/22 12:41 Insulin Regular, Human 100 Units/1 Ml SUB-Q 4 units ACHS LEISA Administration Protocol Magnesium Hydroxide 30 ml 02/02/22 23:25 Magnesium Hydroxide (Mom) Oral Liqd Udc PO Q4H PRN Constipation Methylprednisolone Sodium Succinate 60 mg 02/03/22 12:00 02/09/22 12:41 Methylprednisolone Sod Succinate 125 Mg/2 Ml Inj IV 60 mg Q6HR LEISA Administration Morphine Sulfate 2 mg 02/02/22 23:25 02/07/22 23:27 Morphine 2 Mg/1 Ml Inj IV 2 mg Q4H PRN Administration Pain, Moderate (4-6) Ondansetron HCl 4 mg 02/02/22 23:25 Ondansetron 4 Mg/2 Ml Inj IV Q8H PRN Nausea And Vomiting Oxycodone/Acetaminophen 1 tab 02/02/22 23:09 02/05/22 22:12 Oxycodone /Acetaminophen 5-325mg Tab PO 1 tab Q6H PRN Administration Pain, Moderate (4-6) Sodium Chloride 10 ml 02/03/22 10:00 02/09/22 09:11 Sodium Chloride 0.9% 10 Ml Flush Syringe IV 10 ml BID LEISA Administration Sodium Chloride 10 ml 02/02/22 23:25 02/07/22 13:00 Sodium Chloride 0.9% 10 Ml Flush Syringe IV 10 ml PRN PRN Administration LINE FLUSH Spironolactone 25 mg 02/07/22 11:00 02/09/22 09:11 Spironolactone 25 Mg Tab PO 25 mg QDAY LEISA Administration Nutrition/Malnutrition Assess - Dietary Evaluation Nutrition/Malnutrition Findings: Nutrition Notes Start: 02/03/22 11:29 Freq: Status: Active Protocol: Document 02/03/22 11:29 SHALOM (Rec: 02/03/22 11:38 SHALOM [id number]) Nutrition Notes Need for Assessment generated from: MD Order,Education Initial or Follow up Brief Note Current Diagnosis COPD,Diabetes,Sepsis, Hypertension,Respiratory Failure Other Pertinent Diagnosis CHF, Tachycardia, Pneumonia. Current Diet Cardiac/Consistent Carbohydrates Diet (since B ). Height 5 ft 10 in Weight 136.078 kg [place] Body Weight (kg) 68.18 BMI 43.0 Weight change and time frame None provided at admission. Weight Status Morbidly Obese Subjective/Other Information RD consult for nutrition education assessment. No reports available on Pt's PO intake of meals at the time , will assess at F/U. Pr is on a Non-Rebreather+, O2 saturation @ 95%, according to Physical Assessment History notes. Pt still in critical condition , not a candidate for Nutrition Education at the time, will assess feasibility on F/U. Percent of energy/protein needs met: Prescribed Cardiac/Consistent Carbohydrates Diet provides for energy/protein needs (1, 977 Kcal/86 g) during LOS. Nutrition Intervention Follow-Up By: 02/10/22 Additional Comments Nutrition education will be provided at F/U, if feasible. Continue monitoring food tolerance, %PO intake of meals , and BM.
--- NOTE | 2022-02-09 15:30 | Progress Note ---
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 02/09/22: Per chart patient was on 3 liters at home but at last discharge from here, I think she may have been sent out on 5 or 6. COntinue to wean for sats >88%. Ok with switching to oral steroids as early as tomorrow. Would start at PRednisone 60 daily. Will continue to follow. 02/08/22: Continue steroids. No lasix today. 02/07/22: Will give a dose of IV lasix this afternoon to see if this helps with volume and oxygen requirement. Continue steroids until off HFNC. Guarded prognosis. 02/04/22: Continue High dose steroids until back on cannula and then can start to decrease. continue bid Pulmicort and Brovana. Daily net negative fluid state. Will continue to follow. COVID negative here. 1. Unable to find PFT's to support COPD diagnosis but apparently patient is a former smoker. Will place on BID Pulmicort and Brovana therapy as she is on Symbicort as an outpatient. 2. Will start High dose IV steroids as she responded well to this last time. 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 Rheum at [facility] is following. She needs therapy for her RA that should help with her ILD. Pulm at [facility] planning to start patient OFEV 3. Wean FiO2 for sats > 88% 4. If patient is producing sputum please send for cytology for PCP pneumonia. She is suppose to be on prophylactic therapy but could not tell me if she has been taking the medication or not. Will check LDH. To unstable for bronch at this time 5. Follow up COVID 6. Guarded Prognosis. Subjective Date of service: 02/09/22 Interval history: Down to 5 liters today. No acute events. I/O shows positive fluid balance Objective Vital Signs - 12hr 02/09/22 02/09/22 02/09/22 08:20 11:52 11:54 Temperature 97.4 F L Pulse Rate 88 Pulse Rate [ 84 Anterior Bilateral Throughout] Respiratory 16 Rate Respiratory 19 Rate [Anterior Bilateral Throughout] Blood Pressure 124/67 O2 Sat by Pulse 94 92 Oximetry 02/09/22 12:50 Temperature Pulse Rate Pulse Rate [ Anterior Bilateral Throughout] Respiratory Rate Respiratory Rate [Anterior Bilateral Throughout] Blood Pressure O2 Sat by Pulse 94 Oximetry CBC and BMP: 02/08/22 05:55 02/07/22 05:18 ABG, PT/INR, D-dimer: ABG ABG pH 7.452 pH Units (7.350-7.450) H 02/02/22 22:25 ABG pCO2 36.5 mm Hg 02/02/22 22:25 ABG pO2 129.2 mm Hg (80.0-90.0) H 02/02/22 22:25 ABG O2 Saturation 98.6 % (95.0-99.0) 02/02/22 22:25 Abnormal lab findings: Abnormal Labs 02/02/22 02/02/22 02/02/22 20:36 20:36 22:25 WBC 13.6 H RDW 16.7 H Seg Neuts % (Manual) 75.0 H Lymphocytes % (Manual) 10.0 L Monocytes % (Manual) 10.0 H Seg Neutrophils # Man 10.2 H Monocytes # (Manual) 1.4 H ABG pH 7.452 H ABG pO2 129.2 H Sodium Chloride BUN Glucose 145 H POC Glucose Hemoglobin A1c Calcium Lactate Dehydrogenase 02/03/22 02/03/22 02/03/22 05:39 10:40 21:13 WBC RDW Seg Neuts % (Manual) Lymphocytes % (Manual) Monocytes % (Manual) Seg Neutrophils # Man Monocytes # (Manual) ABG pH ABG pO2 Sodium Chloride BUN Glucose 121 H POC Glucose 120 H 157 H Hemoglobin A1c Calcium Lactate Dehydrogenase 02/03/22 02/04/22 02/04/22 21:25 05:02 05:02 WBC RDW 16.3 H Seg Neuts % (Manual) Lymphocytes % (Manual) Monocytes % (Manual) Seg Neutrophils # Man Monocytes # (Manual) ABG pH ABG pO2 Sodium 135 L Chloride 97.2 L BUN Glucose 249 H POC Glucose Hemoglobin A1c Calcium 8.2 L Lactate Dehydrogenase 516 H 02/04/22 02/04/22 02/04/22 08:50 11:44 16:56 WBC RDW Seg Neuts % (Manual) Lymphocytes % (Manual) Monocytes % (Manual) Seg Neutrophils # Man Monocytes # (Manual) ABG pH ABG pO2 Sodium Chloride BUN Glucose POC Glucose 274 H 176 H 216 H Hemoglobin A1c Calcium Lactate Dehydrogenase 02/04/22 02/05/22 02/05/22 20:17 07:26 12:16 WBC RDW Seg Neuts % (Manual) Lymphocytes % (Manual) Monocytes % (Manual) Seg Neutrophils # Man Monocytes # (Manual) ABG pH ABG pO2 Sodium Chloride BUN Glucose POC Glucose 193 H 183 H 215 H Hemoglobin A1c Calcium Lactate Dehydrogenase 02/05/22 02/05/22 02/06/22 16:48 21:31 04:50 WBC 16.9 H RDW 16.7 H Seg Neuts % (Manual) Lymphocytes % (Manual) Monocytes % (Manual) Seg Neutrophils # Man Monocytes # (Manual) ABG pH ABG pO2 Sodium Chloride BUN Glucose POC Glucose 140 H 165 H Hemoglobin A1c Calcium Lactate Dehydrogenase 02/06/22 02/06/22 02/06/22 04:50 07:32 12:01 WBC RDW Seg Neuts % (Manual) Lymphocytes % (Manual) Monocytes % (Manual) Seg Neutrophils # Man Monocytes # (Manual) ABG pH ABG pO2 Sodium 134 L Chloride 95.4 L BUN 19 H Glucose 124 H POC Glucose 224 H 197 H Hemoglobin A1c Calcium Lactate Dehydrogenase 02/06/22 02/06/22 02/07/22 16:35 21:40 05:18 WBC 14.7 H RDW 16.4 H Seg Neuts % (Manual) Lymphocytes % (Manual) Monocytes % (Manual) Seg Neutrophils # Man Monocytes # (Manual) ABG pH ABG pO2 Sodium Chloride BUN Glucose POC Glucose 143 H 162 H Hemoglobin A1c Calcium Lactate Dehydrogenase 02/07/22 02/07/22 02/07/22 05:18 07:44 11:37 WBC RDW Seg Neuts % (Manual) Lymphocytes % (Manual) Monocytes % (Manual) Seg Neutrophils # Man Monocytes # (Manual) ABG pH ABG pO2 Sodium Chloride BUN 19 H Glucose 116 H POC Glucose 142 H 139 H Hemoglobin A1c Calcium Lactate Dehydrogenase 02/07/22 02/07/22 02/08/22 16:54 22:30 05:55 WBC 13.3 H RDW 16.1 H Seg Neuts % (Manual) Lymphocytes % (Manual) Monocytes % (Manual) Seg Neutrophils # Man Monocytes # (Manual) ABG pH ABG pO2 Sodium Chloride BUN Glucose POC Glucose 140 H 263 H Hemoglobin A1c Calcium Lactate Dehydrogenase 02/08/22 02/08/22 02/08/22 07:26 11:40 16:31 WBC RDW Seg Neuts % (Manual) Lymphocytes % (Manual) Monocytes % (Manual) Seg Neutrophils # Man Monocytes # (Manual) ABG pH ABG pO2 Sodium Chloride BUN Glucose POC Glucose 129 H 190 H 211 H Hemoglobin A1c Calcium Lactate Dehydrogenase 02/08/22 02/09/22 02/09/22 22:04 05:25 07:36 WBC RDW Seg Neuts % (Manual) Lymphocytes % (Manual) Monocytes % (Manual) Seg Neutrophils # Man Monocytes # (Manual) ABG pH ABG pO2 Sodium Chloride BUN Glucose POC Glucose 252 H 175 H Hemoglobin A1c 7.0 H Calcium Lactate Dehydrogenase 02/09/22 11:47 WBC RDW Seg Neuts % (Manual) Lymphocytes % (Manual) Monocytes % (Manual) Seg Neutrophils # Man Monocytes # (Manual) ABG pH ABG pO2 Sodium Chloride BUN Glucose POC Glucose 297 H Hemoglobin A1c Calcium Lactate Dehydrogenase
[2022-02-09] MEDS: oxyCODONE /ACETAMINOPHEN 5-325MG TAB PO PRN (20:51)
[2022-02-10] MEDS: methylPREDNISolone Sod Succinate 125 MG/2 ML INJ IV SCH ×2 (01:16→06:52)
[2022-02-10] MEDS: HEPARIN 5,000 UNIT/1 ML VIAL SUB-Q SCH ×2 (06:52→13:01)
[2022-02-10] MEDS: ARFORMOTEROL 15 MCG/2 ML NEBU IH SCH (11:00)
[2022-02-10] MEDS: BUDESONIDE 0.5 MG/2 ML NEBU IH SCH (11:00)
[2022-02-10] MEDS: INSULIN NPH/REGULAR 70/30 INJ SUB-Q SCH (11:10)
[2022-02-10] MEDS: INSULIN REGULAR, HUMAN 100 UNITS/1 ML SUB-Q SCH ×2 (11:21→12:51)
[2022-02-10] MEDS: diazePAM 5 MG TAB PO PRN (11:21)
[2022-02-10] MEDS: FUROSEMIDE 20 MG TAB PO SCH (11:21)
[2022-02-10] MEDS: SPIRONOLACTONE 25 MG TAB PO SCH (11:21)
--- NOTE | 2022-02-10 13:07 | Discharge Summary ---
Providers - Providers Date of Admission: 02/02/22 23:09 Date of discharge: 02/10/22 Attending physician: LIZETT MAGALLANES MD 02/02/22 23:25 Consult to Physician [CONS] Routine Comment: Consulting Provider: KATINA CORNELL Physician Instructions: Reason For Exam: Respiratory failure, Pneumonia 02/02/22 23:26 Consult to Dietitian/Nutrition [CONS] Routine Physician Instructions: Reason For Exam: Reason for Consult: Diet education 02/07/22 11:57 Occupational Therapy Evaluate and Treat [CONS] Routine Comment: Reason For Exam: debility Physical Therapy Evaluation and Treat [CONS] Routine Comment: Reason For Exam: debility Primary care physician: COSMO ASH Hospitalization Reason for admission: Acute on chronic hypoxic respiratory failure, sepsis Condition: Critical Pertinent studies: Reviewed. Procedures: None. Hospital course: Patient is a 71-year-old woman with past medical history of chronic hypoxic respiratory failure (on home oxygen of 3 L nasal cannula), hypertension, insulin-dependent type 2 diabetes mellitus, asthma, COPD who presented to the ED with complaints of worsening shortness of breath that had progressed over the previous 24 hours. Patient endorsed having worsening of symptoms when supine or with exertion; however, she denied chest pain/pressure. In the ED, the patient was found to be hemodynamically stable, but her heart rate was 151 and she was febrile at 101.0. Patient's labs were remarkable for WBC 13.6. Patient underwent chest x-ray that was concerning for multifocal pneumonia. Pulmonology was consulted as the patient was placed on high flow nasal cannula. Patient was also initiated on IV steroids as well as inhalers. Patient has since been weaned down to her baseline oxygen requirement of 3 L nasal cannula. Patient completed 5-day course of antibiotics. Patient expressed understanding. Patient is medically clear for discharge. Disposition: 01 HOME / SELF CARE / HOMELESS Final Discharge Diagnosis (Prints w/discharge instructions): Acute on chronic hypoxic respiratory failure, possible rheumatoid arthritis related interstitial lung disease, sepsis, chronic diastolic heart failure, prediabetes, rheumatoid arthritis, morbid obesity. Time spent for discharge: 45 min Core Measure Documentation - Palliative Care Palliative Care/ Comfort Measures: Not Applicable - Core Measures Any of the following diagnoses?: history only Exam - Constitutional Vitals: Temp Pulse Resp BP Pulse Ox 97.4 F L 96 H 17 170/68 88 02/10/22 04:51 02/10/22 08:00 02/10/22 08:00 02/10/22 04:51 02/10/22 10:00 General appearance: Present: no acute distress, well-nourished, obese - EENT Eyes: Present: PERRL, EOM intact ENT: hearing intact, clear oral mucosa, dentition normal - Neck Neck: Present: supple, normal ROM - Respiratory Respiratory effort: normal Respiratory: bilateral: diminished (On 3 L nasal cannula (baseline 3 L nasal cannula)) - Cardiovascular Rhythm: regular Heart Sounds: Present: S1 & S2 - Extremities Extremities: no ischemia, pulses intact, pulses symmetrical, No edema, normal temperature, normal color Peripheral Pulses: within normal limits - Abdominal General gastrointestinal: Present: soft, non-tender, non-distended, normal bowel sounds Female genitourinary: Present: deferred - Rectal Rectal Exam: deferred - Integumentary Integumentary: Present: clear, warm, dry - Musculoskeletal Musculoskeletal: strength equal bilaterally - Psychiatric Psychiatric: appropriate mood/affect, intact judgment & insight, cooperative, other (Moderately decreased short-term memory) - Neurologic Neurologic: CNII-XII intact, moves all extremities - Allied Health Allied health notes reviewed: nursing, social work Plan Activity: advance as tolerated Diet: low salt, diabetic Additional Instructions: Patient is a 71-year-old woman with past medical history of chronic hypoxic respiratory failure (on home oxygen of 3 L nasal cannula), hypertension, insulin-dependent type 2 diabetes mellitus, asthma, COPD who presented to the ED with complaints of worsening shortness of breath that had progressed over the previous 24 hours. Patient endorsed having worsening of symptoms when supine or with exertion; however, she denied chest pain/pressure. In the ED, the patient was found to be hemodynamically stable, but her heart rate was 151 and she was febrile at 101.0. Patient's labs were remarkable for WBC 13.6. Patient underwent chest x-ray that was concerning for multifocal pneumonia. Pulmonology was consulted as the patient was placed on high flow nasal cannula. Patient was also initiated on IV steroids as well as inhalers. Patient has since been weaned down to her baseline oxygen requirement of 3 L nasal cannula. Patient completed 5-day course of antibiotics. Patient expressed understanding. Patient is medically clear for discharge. Care Plan Goals: Patient is medically clear for discharge. Assessment: Patient is a 71-year-old woman with past medical history of chronic hypoxic respiratory failure (on home oxygen of 3 L nasal cannula), hypertension, insulin-dependent type 2 diabetes mellitus, asthma, COPD who presented to the ED with complaints of worsening shortness of breath that had progressed over the previous 24 hours. Patient endorsed having worsening of symptoms when supine or with exertion; however, she denied chest pain/pressure. In the ED, the patient was found to be hemodynamically stable, but her heart rate was 151 and she was febrile at 101.0. Patient's labs were remarkable for WBC 13.6. Patient underwent chest x-ray that was concerning for multifocal pneumonia. Pulmonology was consulted as the patient was placed on high flow nasal cannula. Patient was also initiated on IV steroids as well as inhalers. Patient has since been weaned down to her baseline oxygen requirement of 3 L nasal cannula. Patient completed 5-day course of antibiotics. Patient expressed understanding. Patient is medically clear for discharge. Follow up with: COSMO ASH MD [Primary Care Provider] - 7 Days Prescriptions: Furosemide [Lasix TAB] 40 mg PO QDAY #30 tablet
[2022-02-10 13:20] VITALS: BP 100/55
== END 2022-02-10 18:15 | disposition home or self-care (01) | DRG 871 ==
LOC: ED 19:00 → IMCU 23:09 → 3A 02-04 11:18
PROVIDERS: ADMIT Internal Medicine Geriatric Medicine; ATTEND Student in an Organized Health Care Education/Training Program
PROC: 4A033R1 Measurement of Arterial Saturation, Peripheral, Percutaneous Approach (ICD-10-PCS; principal; 2022-02-02)
PROC: 5A09357 Assistance with Respiratory Ventilation, Less than 24 Consecutive Hours, Continuous Positive Airway Pressure (ICD-10-PCS; 2022-02-02)
PROC: 5A0955A Assistance with Respiratory Ventilation, Greater than 96 Consecutive Hours, High Flow/Velocity Cannula (ICD-10-PCS; 2022-02-03)
PROC: 5A09357 Assistance with Respiratory Ventilation, Less than 24 Consecutive Hours, Continuous Positive Airway Pressure (ICD-10-PCS; 2022-02-06)
DX: A41.9 Sepsis, unspecified organism (principal); J18.9 Pneumonia, unspecified organism; J96.21 Acute and chronic respiratory failure with hypoxia; I50.32 Chronic diastolic (congestive) heart failure; Z20.822 Contact with and (suspected) exposure to COVID-19; I11.0 Hypertensive heart disease with heart failure; E66.01 Morbid (severe) obesity due to excess calories; M05.10 Rheumatoid lung disease with rheumatoid arthritis of unspecified site; J84.170 Interstitial lung disease with progressive fibrotic phenotype in diseases classified elsewhere; J44.9 Chronic obstructive pulmonary disease, unspecified; E11.9 Type 2 diabetes mellitus without complications; Z90.49 Acquired absence of other specified parts of digestive tract
CPT/HCPCS: 36415; 71045; 80048; 80053; 82140; 82803; 82962; 83036; 83615; 83735; 83880; 84484; 85007; 85025; 85027; 87040; 93005; 94640; 94760; 96365; 96375; 99291; G0378; Q0177; Q9967; J0456; J0692; J0696; J1644; J1815; J1940; J2270; J2930; J7030; U0003